=== PATIENT | male | born 1935 | race Caucasian/White ===

== ENCOUNTER 2017-12-16 15:49 | Observation (INO) | payer MEDICAID, MEDICARE ==
[2017-12-16] MEDS ORDERED: methylPREDNISolone Sodium Succinate 125 MG/2 ML SDV IVPUSH ONE (16:10)
[2017-12-16] MEDS ORDERED: cefTRIAXone 1 GM Vial IVPUSH ONE (16:19)
[2017-12-16] MEDS ORDERED: Sodium Chloride 0.9% 500 ML IV SCH (16:30)
[2017-12-16] MEDS: Sodium Chloride 0.9% 1,000 ML IV SCH (16:45)
[2017-12-16 17:05] LABS: CHLORIDE,CL 110 mmol/L (98-107); SODIUM,NA 148 mmol/L (136-145)
--- NOTE | 2017-12-16 17:15 | EDM.PDOC ---
ED HPI GENERAL MEDICAL PROBLEM - General Chief Complaint: Respiratory Problem Stated Complaint: fever, shortness of breath Time Seen by Provider: 12/16/17 16:08 Source of Information: Reports: EMS Notes Reviewed History Limitations: Reports: Altered Mental Status - History of Present Illness INITIAL COMMENTS - FREE TEXT/NARRATIVE: Patient brought over from the care center with complaints of fever and coarse lung sounds. Nurse states this just started before bringing him in. They state that he was transferred to them on 12/11/17 from the [facility]. He does have a history of dementia. Unable to get a HPI from him due to confusion. Onset: Sudden Onset Date: 12/16/17 Duration: Getting Worse Location: Reports: Chest - Related Data Allergies Allergy/AdvReac Type Severity Reaction Status Date / Time No Known Allergies Allergy Verified 12/16/17 16:10 Home Meds: Home Meds Escitalopram Oxalate 20 mg PO DAILY 12/16/17 [History] Furosemide 40 mg PO BID 12/16/17 [History] Memantine HCl 10 mg PO BID 12/16/17 [History] Metoprolol Tartrate 12.5 mg PO BID 12/16/17 [History] Polyethylene Glycol 3350 [MiraLAX] 17 gm PO BID 12/16/17 [History] Rivastigmine Tartrate [Rivastigmine] 3 mg PO BID 12/16/17 [History] Sennosides/Docusate Sodium [Senna Plus Tablet] 2 tab PO TID 12/16/17 [History] Triamcinolone Acetonide [Triamcinolone Acetonide 0.1% Crm] 1 dose TOP BID PRN [History] risperiDONE [Risperdal] 1 tab PO BEDTIME 12/16/17 [History] risperiDONE [RisperiDAL] 1 mg PO DAILY 12/16/17 [History] ED ROS GENERAL - Review of Systems Review Of Systems: Unable To Obtain ED EXAM, GENERAL - Physical Exam Exam: See Below Exam Limited By: Altered Mental Status General Appearance: Mild Distress Eye Exam: Bilateral Eye: EOMI, PERRL Ears: Normal TMs Ear Exam: Bilateral Ear: TM normal Head: Atraumatic, Normocephalic Neck: Normal Inspection, Supple, Non-Tender, Full Range of Motion Respiratory/Chest: Respiratory Distress, Decreased Breath Sounds, Crackles Cardiovascular: Normal Peripheral Pulses, Regular Rate, Rhythm Peripheral Pulses: 2+: Posterior Tibial (L), Posterior Tibial (R), Dorsalis Pedis (L), Dorsalis Pedis (R) GI/Abdominal: Normal Bowel Sounds, Soft, Non-Tender, No Organomegaly, No Distention, No Abnormal Bruit, No Mass Neurological: Confused, Disoriented, Slow to Respond Psychiatric: Flat Affect EKG INTERPRETATION EKG Date: 12/16/17 Time: 16:30 Rhythm: NSR (with occasional svt) Rate (Beats/Min): 78 Simpson: Normal P-Wave: Present QRS: Normal ST-T: Normal QT: Normal EKG Interpretation Comments: sinus rhythm with occasional supraventricular premature complexes nonspecific st and t wave abnormality borderline ecg Course - Vital Signs Last Recorded V/S: Last Vital Signs Temp 36.6 C 12/16/17 22:00 Pulse 69 12/16/17 22:00 Resp 19 12/16/17 22:00 BP 124/48 L 12/16/17 22:00 Pulse Ox 95 12/16/17 22:00 - Orders/Labs/Meds Orders: Active Orders 24 hr Category Date Time Status Patient Status [ADT] Routine ADT 12/16/17 18:01 Active Chest 1V Frontal [CR] Stat Exams 12/16/17 16:14 Taken CULTURE BLOOD [BC] Stat Lab 12/16/17 16:23 Received CULTURE BLOOD [BC] Stat Lab 12/16/17 16:31 Received CULTURE URINE [RM] Stat Lab 12/16/17 17:40 Received Sodium Chloride 0.9% [Normal Saline] 1,000 ml Med 12/16/17 17:00 Active IV ASDIRECTED Blood Culture x2 Reflex Set [OM.PC] Stat Oth 12/16/17 16:10 Ordered Medication Orders Acetaminophen (Tylenol) 650 mg RECTAL Q4H PRN PRN Reason: Mild pain/fever Albuterol/Ipratropium (Duoneb 3.0-0.5 Mg/3 Ml) 3 ml NEB Q4H PRN PRN Reason: dyspnea/wheezing Last Admin: 12/16/17 19:44 Dose: 3 ml Citalopram Hydrobromide (Celexa) 40 mg PO DAILY [facility] Diphtheria/Tetanus/Acell Pertussis (Adacel) 0.5 ml IM .ONCE ONE Stop: 12/17/17 12:01 Enoxaparin Sodium (Lovenox) 40 mg SUBCUT DAILY [facility] Furosemide (Lasix) 40 mg IV DAILY [facility] Last Admin: 12/16/17 20:02 Dose: 40 mg Sodium Chloride (Normal Saline) 1,000 mls @ 100 mls/hr IV ASDIRECTED [facility] Last Admin: 12/16/17 16:45 Dose: 100 mls/hr Memantine (Namenda) 10 mg PO BID [facility] Last Admin: 12/16/17 20:47 Dose: Metoprolol Tartrate (Lopressor) 12.5 mg PO BID [facility] Last Admin: 12/16/17 20:47 Dose: Non-Formulary Medication (Rivastigmine Tartrate [Rivastigmine]) 3 mg PO BID [facility] Last Admin: 12/16/17 20:07 Dose: Polyethylene Glycol (Miralax) 17 gm PO BID [facility] Last Admin: 12/16/17 20:06 Dose: Risperidone (Risperidal) 1 mg PO DAILY [facility] Risperidone (Risperidal) 0.5 mg PO BEDTIME [facility] Last Admin: 12/16/17 20:47 Dose: Senna/Docusate Sodium (Senna Plus) 2 tab PO TID [facility] Last Admin: 12/16/17 20:05 Dose: Triamcinolone Acetonide (Triamcinolone Acetonide 0.1% Crm) 0 gm TOP BID PRN PRN Reason: Itching Labs: Laboratory Tests 12/16/17 12/16/1718 Range/Units 16:23 16:23 16:23 WBC 8.8 (4.0-10.0) x10^3/uL RBC 4.06 L (4.5-6.0) x10^6/uL Hgb 10.8 L (14.0-18.0) g/dL Hct 35.7 L (40.0-52.0) % MCV 87.9 (78.0-93.0) fL MCH 26.6 (26.0-32.0) pg MCHC 30.3 L (32.0-36.0) g/dL RDW Coeff of Roberto 15.2 H (10.0-15.0) % Plt Count 246 (130-400) x10^3/uL Neut % (Auto) 79.2 (50.0-80.0) % Lymph % (Auto) 7.7 L (25.0-50.0) % [place] % (Auto) 12.8 H (2.0-11.0) % Eos % (Auto) 0.1 (0.0-4.0) % Baso % (Auto) 0.2 (0.2-1.2) % POC ABG pH (7.35-7.45) POC ABG pCO2 (35-45) mmHG POC ABG pO2 (80-105) mmHG POC ABG HCO3 (22-26) mmol/L POC ABG Total CO2 (23-27) mmol/L POC ABG O2 Sat (95-98) % POC ABG Base Excess (-2-3) mmol/L POC FiO2 Sodium 148 H (136-145) mmol/L Potassium 3.9 (3.5-5.1) mmol/L Chloride 110 H (98-107) mmol/L Carbon Dioxide 28 (21-32) mmol/L BUN 35 H (7-18) mg/dL Creatinine 1.7 H (0.70-1.30) mg/dL Est Cr Clr Drug Dosing TNP Estimated GFR (MDRD) 39 Glucose 127 H (74-106) mg/dL Lactic Acid 1.8 (0.4-2.0) mmol/L Calcium 8.8 (8.5-10.1) mg/dL Corrected Calcium 9.60 (8.5-10.1) mg/dL Total Bilirubin 0.4 (0.2-1.0) mg/dL AST 13 L (15-37) U/L ALT 18 (16-63) U/L Alkaline Phosphatase 75 (46-116) U/L Troponin I < 0.017 (<=0.056) ng/mL C-Reactive Protein (<=0.9) mg/dL NT-Pro-B Natriuret Pep 1250 H (<=450) pg/mL Total Protein 7.8 (6.4-8.2) g/dL Albumin 3.0 L (3.4-5.0) g/dL Globulin 4.8 Albumin/Globulin Ratio 0.63 Urine Color (YELLOW) Urine Appearance (CLEAR) Urine pH (5.0-8.0) Ur Specific [place] Urine Protein (NEGATIVE) mg/dL Urine Glucose (UA) (NEGATIVE) mg/dL Urine Ketones (NEGATIVE) mg/dL Urine Occult Blood (NEGATIVE) Urine Nitrite (NEGATIVE) Urine Bilirubin (NEGATIVE) Urine Urobilinogen (0.2) EU/dL Ur Leukocyte Esterase (NEGATIVE) Urine RBC (NOT SEEN) /HPF Urine WBC (NOT SEEN) /HPF Ur Squamous Epith Cells (NEGATIVE) /HPF Urine Bacteria (NEGATIVE) /HPF Urine Mucus (NEGATIVE) /LPF 12/16/17 12/16/17 12/16/17 Range/Units 16:23 16:47 17:40 WBC (4.0-10.0) x10^3/uL RBC (4.5-6.0) x10^6/uL Hgb (14.0-18.0) g/dL Hct (40.0-52.0) % MCV (78.0-93.0) fL MCH (26.0-32.0) pg MCHC (32.0-36.0) g/dL RDW Coeff of Roberto (10.0-15.0) % Plt Count (130-400) x10^3/uL Neut % (Auto) (50.0-80.0) % Lymph % (Auto) (25.0-50.0) % [place] % (Auto) (2.0-11.0) % Eos % (Auto) (0.0-4.0) % Baso % (Auto) (0.2-1.2) % POC ABG pH 7.468 H (7.35-7.45) POC ABG pCO2 34 L (35-45) mmHG POC ABG pO2 61 L (80-105) mmHG POC ABG HCO3 25 (22-26) mmol/L POC ABG Total CO2 26 (23-27) mmol/L POC ABG O2 Sat 93 L (95-98) % POC ABG Base Excess 1 (-2-3) mmol/L POC FiO2 0.28 Sodium (136-145) mmol/L Potassium (3.5-5.1) mmol/L Chloride (98-107) mmol/L Carbon Dioxide (21-32) mmol/L BUN (7-18) mg/dL Creatinine (0.70-1.30) mg/dL Est Cr Clr Drug Dosing Estimated GFR (MDRD) Glucose (74-106) mg/dL Lactic Acid (0.4-2.0) mmol/L Calcium (8.5-10.1) mg/dL Corrected Calcium (8.5-10.1) mg/dL Total Bilirubin (0.2-1.0) mg/dL AST (15-37) U/L ALT (16-63) U/L Alkaline Phosphatase (46-116) U/L Troponin I (<=0.056) ng/mL C-Reactive Protein 31.2 H (<=0.9) mg/dL NT-Pro-B Natriuret Pep (<=450) pg/mL Total Protein (6.4-8.2) g/dL Albumin (3.4-5.0) g/dL Globulin Albumin/Globulin Ratio Urine Color Dark yellow H (YELLOW) Urine Appearance Clear (CLEAR) Urine pH 6.0 (5.0-8.0) Ur Specific [place] 1.020 Urine Protein 30 H (NEGATIVE) mg/dL Urine Glucose (UA) Negative (NEGATIVE) mg/dL Urine Ketones Negative (NEGATIVE) mg/dL Urine Occult Blood Negative (NEGATIVE) Urine Nitrite Negative (NEGATIVE) Urine Bilirubin Negative (NEGATIVE) Urine Urobilinogen 0.2 (0.2) EU/dL Ur Leukocyte Esterase Negative (NEGATIVE) Urine RBC Not seen (NOT SEEN) /HPF Urine WBC Not seen (NOT SEEN) /HPF Ur Squamous Epith Cells Not seen (NEGATIVE) /HPF Urine Bacteria Not seen (NEGATIVE) /HPF Urine Mucus Not seen (NEGATIVE) /LPF Meds: Medications Generic Name Dose Route Start Last Admin Trade Name Freq PRN Reason Stop Dose Admin Acetaminophen 650 mg 12/16/17 19:00 Tylenol RECTAL Q4H PRN Mild pain/fever Albuterol/Ipratropium 3 ml 12/16/17 19:00 12/16/17 19:44 Duoneb 3.0-0.5 Mg/3 Ml NEB 3 ml Q4H PRN Administration dyspnea/wheezing Citalopram Hydrobromide 40 mg 12/17/17 08:00 Celexa PO DAILY [facility] Diphtheria/Tetanus/Acell Pertussis 0.5 ml 12/17/17 12:00 Adacel IM 12/17/17 12:01 .ONCE ONE Enoxaparin Sodium 40 mg 12/17/17 08:00 Lovenox SUBCUT DAILY [facility] Furosemide 40 mg 12/16/17 19:45 12/16/17 20:02 Lasix IV 40 mg DAILY [facility] Administration Sodium Chloride 1,000 mls @ 100 mls/hr 12/16/17 17:00 12/16/17 16:45 Normal Saline IV 100 mls/hr ASDIRECTED [facility] Administration Memantine 10 mg 12/16/17 20:00 12/16/17 20:47 Namenda PO Not Given BID [facility] Metoprolol Tartrate 12.5 mg 12/16/17 20:00 12/16/17 20:47 Lopressor PO Not Given BID [facility] Non-Formulary Medication 3 mg 12/16/17 20:00 12/16/17 20:07 Rivastigmine Tartrate [Rivastigmine] PO Not Given BID [facility] Polyethylene Glycol 17 gm 12/16/17 20:00 12/16/17 20:06 Miralax PO Not Given BID [facility] Risperidone 1 mg 12/17/17 08:00 Risperidal PO DAILY [facility] Risperidone 0.5 mg 12/16/17 20:00 12/16/17 20:47 Risperidal PO Not Given BEDTIME [facility] Senna/Docusate Sodium 2 tab 12/16/17 20:00 12/16/17 20:05 Senna Plus PO Not Given TID [facility] Triamcinolone Acetonide 0 gm 12/16/17 19:05 Triamcinolone Acetonide 0.1% Crm TOP BID PRN Itching Discontinued Medications Generic Name Dose Route Start Last Admin Trade Name Freq PRN Reason Stop Dose Admin Azithromycin 500 mg 12/16/17 19:09 12/16/17 20:05 Zithromax PO 12/16/17 19:10 Not Given ONETIME ONE Ceftriaxone Sodium 1 gm 12/16/17 16:19 12/16/17 16:45 Rocephin IVPUSH 12/16/17 16:20 1 gm ONETIME ONE Administration Diphtheria/Tetanus/Acell Pertussis 0.5 ml 12/16/17 19:20 Adacel IM 12/16/17 19:21 .ONCE ONE Furosemide 40 mg 12/16/17 19:15 12/16/17 20:05 Lasix PO Not Given BIDDIURETIC [facility] Furosemide 40 mg 12/17/17 08:00 Lasix IV DAILY [facility] Vancomycin HCl 1,250 mg/ 250 mls @ 200 mls/hr 12/16/17 16:19 02/17/18 16:57 Sodium Chloride IV 12/16/17 17:33 200 mls/hr ONETIME ONE Administration Azithromycin 500 mg/ Sodium 250 mls @ 250 mls/hr 12/16/17 19:43 12/16/17 20: 48 Chloride IV 12/16/17 20:42 250 mls/hr ONETIME ONE Administration Methylprednisolone Sodium Succinate 125 mg 12/16/17 16:10 12/16/17 16:52 Solu-Medrol IVPUSH 12/16/17 16:11 125 mg ONETIME ONE Administration - Re-Assessments/Exams Free Text/Narrative Re-Assessment/Exam: 12/16/17 22:29 Patient admitted to upstairs observation PLEASE USE ER NOTE FOR ADMISSION H & P Departure - Departure Time of Disposition: 18:15 Disposition: Refer to Observation Condition: Good Clinical Impression: COPD (chronic obstructive pulmonary disease), CAP (community acquired pneumonia ) - Discharge Information - My Orders Last 24 Hours: My Active Orders 12/16/17 16:10 Blood Culture x2 Reflex Set [OM.PC] Stat 12/16/17 16:14 Chest 1V Frontal [CR] Stat 12/16/17 16:23 CULTURE BLOOD [BC] Stat 12/16/17 16:31 CULTURE BLOOD [BC] Stat 12/16/17 17:00 Sodium Chloride 0.9% [Normal Saline] 1,000 ml IV ASDIRECTED 12/16/17 17:40 CULTURE URINE [RM] Stat 12/16/17 18:01 Patient Status [ADT] Routine - Assessment/Plan Last 24 Hours: My Active Orders 12/16/17 16:10 Blood Culture x2 Reflex Set [OM.PC] Stat 12/16/17 16:14 Chest 1V Frontal [CR] Stat 12/16/17 16:23 CULTURE BLOOD [BC] Stat 12/16/17 16:31 CULTURE BLOOD [BC] Stat 12/16/17 17:00 Sodium Chloride 0.9% [Normal Saline] 1,000 ml IV ASDIRECTED 12/16/17 17:40 CULTURE URINE [RM] Stat 12/16/17 18:01 Patient Status [ADT] Routine
[2017-12-16] MEDS ORDERED: Acetaminophen 650 MG Supp RECTAL PRN (19:00)
[2017-12-16] MEDS ORDERED: Triamcinolone Acetonide 0.1% Crm 15 GM Tube TOP PRN (19:05)
[2017-12-16] MEDS ORDERED: Azithromycin 250 MG Tab PO ONE (19:09)
[2017-12-16] MEDS ORDERED: Furosemide 40 MG Tab PO SCH (19:15)
[2017-12-16] MEDS ORDERED: Diphtheria,Pertussis(Acell),Tetanus Vaccine 0.5 ML Syringe IM ONE (19:20)
[2017-12-16] MEDS ORDERED: Azithromycin 500 MG in Sodium Chloride 0.9% 250 ML IV ONE (19:43)
[2017-12-16] MEDS: Albuterol/Ipratropium 3.0-0.5 MG/3 ML Neb Soln NEB PRN (19:44)
[2017-12-16] MEDS: Furosemide 40 MG/4 ML VIAL IV SCH (20:02)
[2017-12-16] MEDS: Polyethylene Glycol 3350 Powder 17 GM Packet PO SCH (20:06)
[2017-12-16] MEDS: RIVASTIGMINE TARTRATE 3 MG PO SCH (20:07)
[2017-12-16] MEDS: Memantine 10 MG Tab PO SCH (20:47)
[2017-12-16] MEDS: risperiDONE 0.25 MG Tab PO SCH (20:47)
[2017-12-16] MEDS: Metoprolol Tartrate 25 MG Tab PO SCH (20:47)
[2017-12-17] MEDS ORDERED: diphenhydrAMINE 50 MG/ML SDV IVPUSH ONE (01:19)
[2017-12-17] MEDS: Sodium Chloride 0.9% 1,000 ML IV SCH ×2 (04:59→14:32)
[2017-12-17] MEDS: Albuterol/Ipratropium 3.0-0.5 MG/3 ML Neb Soln NEB PRN (07:33)
[2017-12-17] MEDS ORDERED: Furosemide 40 MG/4 ML VIAL IV SCH (08:00)
[2017-12-17] MEDS: Enoxaparin 40 MG/0.4 ML Syringe SUBCUT SCH (08:05)
[2017-12-17] MEDS: Furosemide 40 MG/4 ML VIAL IV SCH (08:06)
[2017-12-17] MEDS: risperiDONE 1 MG Tab PO SCH (10:42)
[2017-12-17] MEDS: Memantine 10 MG Tab PO SCH ×2 (10:43→21:12)
[2017-12-17] MEDS: Polyethylene Glycol 3350 Powder 17 GM Packet PO SCH ×2 (10:43→21:04)
[2017-12-17] MEDS: Metoprolol Tartrate 25 MG Tab PO SCH ×2 (10:43→21:12)
[2017-12-17] MEDS: Citalopram 20 MG Tab PO SCH (10:43)
[2017-12-17] MEDS: RIVASTIGMINE TARTRATE 3 MG PO SCH ×2 (10:47→21:13)
[2017-12-17] MEDS ORDERED: Diphtheria,Pertussis(Acell),Tetanus Vaccine 0.5 ML Syringe IM ONE (12:00)
--- NOTE | 2017-12-17 14:13 | PCM.PN ---
- General Info Date of Service: 12/17/17 Admission Dx/Problem (Free Text): COPD Pneumonia Hypernatremia Dementia with behaviors Acute kidney injury Chronic AFib Essential Hypertension Subjective Update: Patient offers no specific complaints today. He does have severe dementia, so is somewhat of a poor historian. Functional Status: Reports: Pain Controlled, Tolerating Diet Pain Score: 0 - Review of Systems General: Reports: Weakness. Denies: Fever, Chills Pulmonary: Reports: Cough. Denies: Shortness of Breath, Sputum Cardiovascular: Denies: Chest Pain, Palpitations Gastrointestinal: Denies: Abdominal Pain, Nausea, Vomiting Skin: Reports: No Symptoms Neurological: Reports: Confusion. Denies: Headache - Patient Data Vitals - Most Recent: Last Vital Signs Temp 37.0 C 12/17/17 14:00 Pulse 62 12/17/17 14:00 Resp 20 12/17/17 14:00 BP 133/56 L 12/17/17 14:00 Pulse Ox 99 12/17/17 14:00 Weight - Most Recent: 94.801 kg I&O - Last 24 Hours: Intake & Output 12/16/17 12/17/17 12/17/17 22:59 06:59 14:59 Intake Total 1150 810 Output Total 1000 Balance 1150 -190 Lab Results Last 24 Hours: Laboratory Results - last 24 hr 12/16/17 12/17/17 12/17/17 Range/Units 20:57 06:35 07:28 WBC 6.0 (4.0-10.0) x10^3/uL RBC 3.69 L (4.5-6.0) x10^6/uL Hgb 10.0 L (14.0-18.0) g/dL Hct 33.0 L (40.0-52.0) % MCV 89.4 (78.0-93.0) fL MCH 27.1 (26.0-32.0) pg MCHC 30.3 L (32.0-36.0) g/dL RDW Coeff of Roberto 15.0 (10.0-15.0) % Plt Count 217 (130-400) x10^3/uL Sodium (136-145) mmol/L Potassium (3.5-5.1) mmol/L Chloride (98-107) mmol/L Carbon Dioxide (21-32) mmol/L BUN (7-18) mg/dL Creatinine (0.70-1.30) mg/dL Est Cr Clr Drug Dosing mL/min Estimated GFR (MDRD) Glucose (74-106) mg/dL POC Glucose 181 H 180 H (74-106) mg/dL Lactic Acid (0.4-2.0) mmol/L Calcium (8.5-10.1) mg/dL C-Reactive Protein (<=0.9) mg/dL 12/17/17 12/17/17 Range/Units 07:28 07:28 WBC (4.0-10.0) x10^3/uL RBC (4.5-6.0) x10^6/uL Hgb (14.0-18.0) g/dL Hct (40.0-52.0) % MCV (78.0-93.0) fL MCH (26.0-32.0) pg MCHC (32.0-36.0) g/dL RDW Coeff of Roberto (10.0-15.0) % Plt Count (130-400) x10^3/uL Sodium 149 H (136-145) mmol/L Potassium 3.8 (3.5-5.1) mmol/L Chloride 113 H (98-107) mmol/L Carbon Dioxide 26 (21-32) mmol/L BUN 39 H (7-18) mg/dL Creatinine 1.6 H (0.70-1.30) mg/dL Est Cr Clr Drug Dosing 46.41 mL/min Estimated GFR (MDRD) 42 Glucose 186 H (74-106) mg/dL POC Glucose (74-106) mg/dL Lactic Acid 2.6 H* (0.4-2.0) mmol/L Calcium 8.0 L (8.5-10.1) mg/dL C-Reactive Protein 26.7 H (<=0.9) mg/dL Ricardo Results Last 24 Hours: Microbiology 12/17/17 11:34 Influenza Type A Antigen Screen - Final Nasopharyngeal Swab NEGATIVE INFLUENZA A VIRUS AG Influenza Type B Antigen Screen - Final NEGATIVE INFLUENZA B VIRUS AG Med Orders - Current: Current Medications Acetaminophen (Tylenol) 650 mg RECTAL Q4H PRN PRN Reason: Mild pain/fever Albuterol/Ipratropium (Duoneb 3.0-0.5 Mg/3 Ml) 3 ml NEB Q4H PRN PRN Reason: dyspnea/wheezing Last Admin: 12/17/17 07:33 Dose: 3 ml Citalopram Hydrobromide (Celexa) 40 mg PO DAILY [facility] Last Admin: 12/17/17 10:43 Dose: 40 mg Enoxaparin Sodium (Lovenox) 40 mg SUBCUT DAILY [facility] Last Admin: 12/17/17 08:05 Dose: 40 mg Furosemide (Lasix) 40 mg IV DAILY [facility] Last Admin: 12/17/17 08:06 Dose: 40 mg Sodium Chloride (Normal Saline) 1,000 mls @ 100 mls/hr IV ASDIRECTED [facility] Last Admin: 12/17/17 04:59 Dose: 100 mls/hr Memantine (Namenda) 10 mg PO BID [facility] Last Admin: 12/17/17 10:43 Dose: 10 mg Metoprolol Tartrate (Lopressor) 12.5 mg PO BID [facility] Last Admin: 12/17/17 10:43 Dose: 12.5 mg Non-Formulary Medication (Rivastigmine Tartrate [Rivastigmine]) 3 mg PO BID [facility] Last Admin: 12/17/17 10:47 Dose: Not Given Polyethylene Glycol (Miralax) 17 gm PO BID [facility] Last Admin: 12/17/17 10:43 Dose: 17 gm Risperidone (Risperidal) 1 mg PO DAILY [facility] Last Admin: 12/17/17 10:42 Dose: 1 mg Risperidone (Risperidal) 0.5 mg PO BEDTIME [facility] Last Admin: 12/16/17 20:47 Dose: Not Given Senna/Docusate Sodium (Senna Plus) 2 tab PO TID [facility] Last Admin: 12/17/17 12:29 Dose: 2 tab Triamcinolone Acetonide (Triamcinolone Acetonide 0.1% Crm) 0 gm TOP BID PRN PRN Reason: Itching Discontinued Medications Azithromycin (Zithromax) 500 mg PO ONETIME ONE Stop: 12/16/17 19:10 Last Admin: 12/16/17 20:05 Dose: Not Given Ceftriaxone Sodium (Rocephin) 1 gm IVPUSH ONETIME ONE Stop: 12/16/17 16:20 Last Admin: 12/16/17 16:45 Dose: 1 gm Diphenhydramine HCl (Benadryl) 25 mg IVPUSH ONETIME ONE Stop: 12/17/17 01:20 Last Admin: 12/17/17 01:53 Dose: 25 mg Diphtheria/Tetanus/Acell Pertussis (Adacel) 0.5 ml IM .ONCE ONE Stop: 12/16/17 19:21 Diphtheria/Tetanus/Acell Pertussis (Adacel) 0.5 ml IM .ONCE ONE Stop: 12/17/17 12:01 Furosemide (Lasix) 40 mg PO BIDDIURETIC [facility] Last Admin: 12/16/17 20:05 Dose: Not Given Furosemide (Lasix) 40 mg IV DAILY [facility] Vancomycin HCl 1,250 mg/ (Sodium Chloride) 250 mls @ 200 mls/hr IV ONETIME ONE Stop: 12/16/17 17:33 Last Admin: 12/16/17 16:57 Dose: 200 mls/hr Azithromycin 500 mg/ Sodium (Chloride) 250 mls @ 250 mls/hr IV ONETIME ONE Stop: 12/16/17 20:42 Last Admin: 12/16/17 20:48 Dose: 250 mls/hr Methylprednisolone Sodium Succinate (Solu-Medrol) 125 mg IVPUSH ONETIME ONE Stop: 12/16/17 16:11 Last Admin: 12/16/17 16:52 Dose: 125 mg - Exam Quality Assessment: Supplemental Oxygen, Urine Catheter, DVT Prophylaxis General: Alert, Cooperative, No Acute Distress Lungs: Normal Respiratory Effort, Rhonchi Cardiovascular: Irregular Rhythm GI/Abdominal Exam: Normal Bowel Sounds, Soft, Non-Tender Peripheral Pulses: 2+: Radial (L), Radial (R) Skin: Warm, Dry, Intact Neurological: No New Focal Deficit, Other (Confused) - Problem List & Annotations (1) COPD (chronic obstructive pulmonary disease) SNOMED Code(s): 57506723 Code(s): J44.9 - CHRONIC OBSTRUCTIVE PULMONARY DISEASE, UNSPECIFIED Status : Acute Priority: Medium Current Visit: Yes Qualifiers: COPD type: COPD with acute exacerbation Qualified Code(s): J44.1 - Chronic obstructive pulmonary disease with (acute) exacerbation (2) Acute kidney injury (nontraumatic) SNOMED Code(s): 55539597 Code(s): N17.9 - ACUTE KIDNEY FAILURE, UNSPECIFIED Status: Acute Priority : High Current Visit: Yes Onset Date: ~12/16/17 (3) Hypernatremia SNOMED Code(s): 74712988 Code(s): E87.0 - HYPEROSMOLALITY AND HYPERNATREMIA Status: Acute Priority : Medium Current Visit: Yes (4) Dementia with behavioral problem SNOMED Code(s): 0609606015863 Code(s): F03.91 - UNSPECIFIED DEMENTIA WITH BEHAVIORAL DISTURBANCE Status: Chronic Priority: Medium Current Visit: No Qualifiers: Dementia type: Alzheimer's disease Alzheimer's disease onset: unspecified onset Qualified Code(s): G30.9 - Alzheimer's disease, unspecified; F02.81 - Dementia in other diseases classified elsewhere with behavioral disturbance; F02.81 - Dementia in other diseases classified elsewhere with behavioral disturbance; F02.81 - Dementia in other diseases classified elsewhere with behavioral disturbance (5) Chronic atrial fibrillation SNOMED Code(s): 242353697 Code(s): I48.2 - CHRONIC ATRIAL FIBRILLATION Status: Chronic Priority: Medium Current Visit: No (6) Essential hypertension SNOMED Code(s): 03671551 Code(s): I10 - ESSENTIAL (PRIMARY) HYPERTENSION Status: Chronic Priority : Low Current Visit: No - Problem List Review Problem List Initiated/Reviewed/Updated: Yes - My Orders Last 24 Hours: My Active Orders 12/17/17 07:45 Insert Montoya Catheter [Insert Urinary Catheter] [OM.PC] Stat 12/17/17 11:13 Chest 1V Frontal [CR] Routine 12/17/17 11:53 Urinary Catheter Assessment [RC] 12/17/17 14:07 Encourage Fluids [OM.PC] Routine - Plan Plan:: 82-year-old male patient with a past medical history of COPD, dementia with behavioral disturbance, atrial fibrillation, essential hypertension was admitted to the observation unit yesterday for a diagnosis of COPD exacerbation , community-acquired pneumonia. Yesterday's x-ray and a repeat x-ray today did not show any pneumonia, however did show some cardiomegaly with pulmonary congestion. We will not restart the patient's antibiotics as there is no etiology. I will however check an influenza as the patient does have a cough. We will also recheck a chest x-ray today. The patient needs to have free water available as much as possible for the hypernatremia. We will insert a Montoya catheter today to closely monitor COLEEN due to the patient's acute kidney injury. We'll continue all other medications at home. I would encourage the nursing staff to try and wean the patient off of BiPAP if possible. We will continue the patient's [facility] diet. The patient is a code 3. It is unclear whether or not the patient would be transferred to a higher level of care should the need arise, however we will transfer him if need be. If the patient's respiratory and laboratory status continues to improve, the patient may be able to transfer back to the [facility] tomorrow. We will recheck blood work in the a.m.
[2017-12-17] MEDS: Albuterol/Ipratropium 3.0-0.5 MG/3 ML Neb Soln NEB SCH ×3 (14:36→22:57)
[2017-12-17] MEDS ORDERED: Haloperidol Lactate 5 MG/ML SDV IVPUSH PRN (17:30)
[2017-12-17] MEDS: risperiDONE 0.25 MG Tab PO SCH (21:12)
[2017-12-18] MEDS: Albuterol/Ipratropium 3.0-0.5 MG/3 ML Neb Soln NEB SCH ×2 (02:22→07:38)
[2017-12-18] MEDS: Memantine 10 MG Tab PO SCH (08:18)
[2017-12-18] MEDS: risperiDONE 1 MG Tab PO SCH (08:18)
[2017-12-18] MEDS: Citalopram 20 MG Tab PO SCH (08:18)
[2017-12-18] MEDS: Enoxaparin 40 MG/0.4 ML Syringe SUBCUT SCH (08:18)
[2017-12-18] MEDS: Furosemide 40 MG/4 ML VIAL IV SCH ×2 (08:18→09:04)
[2017-12-18] MEDS: Polyethylene Glycol 3350 Powder 17 GM Packet PO SCH (08:18)
[2017-12-18] MEDS: Metoprolol Tartrate 25 MG Tab PO SCH (08:18)
[2017-12-18] MEDS: RIVASTIGMINE TARTRATE 3 MG PO SCH (08:19)
[2017-12-18] MEDS ORDERED: Furosemide 40 MG/4 ML VIAL IM SCH (08:30)
--- NOTE | 2017-12-18 08:30 | PCM.DCSUM1 ---
Discharge Summary - Discharge Data Discharge Date: 12/18/17 Discharge Disposition: DC/Tfer to [facility] Condition: Fair - Discharge Diagnosis/Problem(s) (1) COPD (chronic obstructive pulmonary disease) SNOMED Code(s): 22425857 ICD Code: J44.9 - CHRONIC OBSTRUCTIVE PULMONARY DISEASE, UNSPECIFIED Status : Acute Priority: Medium Current Visit: Yes Qualifiers: COPD type: COPD with acute exacerbation Qualified Code(s): J44.1 - Chronic obstructive pulmonary disease with (acute) exacerbation (2) Acute kidney injury (nontraumatic) SNOMED Code(s): 51338824 ICD Code: N17.9 - ACUTE KIDNEY FAILURE, UNSPECIFIED Status: Acute Priority: High Current Visit: Yes Onset Date: ~12/16/17 (3) Hypernatremia SNOMED Code(s): 58627754 ICD Code: E87.0 - HYPEROSMOLALITY AND HYPERNATREMIA Status: Resolved Priority: Medium Current Visit: Yes (4) Dementia with behavioral problem SNOMED Code(s): 2640626070543 ICD Code: F03.91 - UNSPECIFIED DEMENTIA WITH BEHAVIORAL DISTURBANCE Status : Chronic Priority: Medium Current Visit: No Qualifiers: Dementia type: Alzheimer's disease Alzheimer's disease onset: unspecified onset Qualified Code(s): G30.9 - Alzheimer's disease, unspecified; F02.81 - Dementia in other diseases classified elsewhere with behavioral disturbance; F02.81 - Dementia in other diseases classified elsewhere with behavioral disturbance; F02.81 - Dementia in other diseases classified elsewhere with behavioral disturbance (5) Chronic atrial fibrillation SNOMED Code(s): 941020026 ICD Code: I48.2 - CHRONIC ATRIAL FIBRILLATION Status: Chronic Priority: Medium Current Visit: No (6) Essential hypertension SNOMED Code(s): 91898145 ICD Code: I10 - ESSENTIAL (PRIMARY) HYPERTENSION Status: Chronic Priority : Low Current Visit: No - Patient Summary/Data Operative Procedure(s) Performed: None Labs Pending at D/C: None Recommended Follow-up Testing/Procedures: Recheck blood work in one week Planned Operative Procedure(s) after DC: None Hospital Course: Patient remained stable. Antibiotics were d/c as xray did not show any pneumonia. Patient was able to be weaned off BiPAP to NC. Will order O2 to be used at the snf as needed. Patient did have some behavioral problems with nursing staff. Tolerated santos, but will discontinue prior to discharge. Patient did not like having a nasal cannula. He pulls it off and O2 sats drop to 86-87. Patient tolerated mechanical soft diet without problems. He did strike out at staff on occasion. No SOB or chest pain. Patient is incontinent of BM. No abdominal issues. - Patient Instructions Diet: Mechanical Soft Activity: Rest and Relax Today Driving: Do Not Drive Showering/Bathing: May Shower Notify Provider of: Fever, Increased Pain, Nausea and/or Vomiting - Discharge Plan Home Medications: Home Meds Escitalopram Oxalate 20 mg PO DAILY 12/16/17 [History] Furosemide 40 mg PO BID 12/16/17 [History] Memantine HCl 10 mg PO BID 12/16/17 [History] Metoprolol Tartrate 12.5 mg PO BID 12/16/17 [History] Polyethylene Glycol 3350 [MiraLAX] 17 gm PO BID 12/16/17 [History] Rivastigmine Tartrate [Rivastigmine] 3 mg PO BID 12/16/17 [History] Sennosides/Docusate Sodium [Senna Plus Tablet] 2 tab PO TID 12/16/17 [History] Triamcinolone Acetonide [Triamcinolone Acetonide 0.1% Crm] 1 dose TOP BID PRN [History] risperiDONE [Risperdal] 1 tab PO BEDTIME 12/16/17 [History] risperiDONE [RisperiDAL] 1 mg PO DAILY 12/16/17 [History] Patient Handouts: Chronic Obstructive Pulmonary Disease Referrals: Marina Bone MD [Primary Care Provider] - - Discharge Summary/Plan Comment DC Time >30 min.: Yes Discharge Summary/Plan Comment: Patient will be discharge back to the snf today. Will order O2 PRN to keep sats >=88%-92%. No changes with snf medications, will keep the same. No indication for abx treatment on discharge, cultures all negative. WBC is elevated, but this could be reactionary. Kidney function improved with hydration. Sodium has normalized. Recommend a follow up with PCP in one week. - General Info Date of Service: 12/18/17 Admission Dx/Problem (Free Text: COPD Pneumonia Hypernatremia Dementia with behaviors Acute kidney injury Chronic AFib Essential Hypertension Subjective Update: FLACO due to advanced dementia; patient able to answer some yes/no questions which is baseline for this patient Functional Status: Reports: Pain Controlled, Tolerating Diet Numeric/FACES Score: 0 - Review of Systems General: Reports: Weakness. Denies: Fever Pulmonary: Denies: Shortness of Breath, Sputum Cardiovascular: Denies: Chest Pain, Palpitations Gastrointestinal: Denies: Abdominal Pain, Nausea, Vomiting Skin: Reports: No Symptoms Neurological: Reports: No Symptoms - Patient Data Vitals - Most Recent: Last Vital Signs Temp 36.7 C 12/18/17 05:34 Pulse 71 12/18/17 05:34 Resp 18 12/18/17 05:34 BP 145/62 H 12/18/17 05:34 Pulse Ox 91 L 12/18/17 07:39 Weight - Most Recent: 94.801 kg I&O - Last 24 hours: Intake & Output 12/17/17 12/18/17 12/18/17 22:59 06:59 14:59 Intake Total 1951 860 Output Total 425 700 Balance 1526 160 Lab Results - Last 24 hrs: Laboratory Results - last 24 hr 12/18/17 12/18/17 Range/Units 06:35 06:35 WBC 12.4 H (4.0-10.0) x10^3/uL RBC 3.86 L (4.5-6.0) x10^6/uL Hgb 10.3 L (14.0-18.0) g/dL Hct 33.4 L (40.0-52.0) % MCV 86.5 (78.0-93.0) fL MCH 26.7 (26.0-32.0) pg MCHC 30.8 L (32.0-36.0) g/dL RDW Coeff of Roberto 14.9 (10.0-15.0) % Plt Count 271 (130-400) x10^3/uL Neut % (Auto) 84.4 H (50.0-80.0) % Lymph % (Auto) 8.2 L (25.0-50.0) % Benson % (Auto) 7.3 (2.0-11.0) % Eos % (Auto) 0.0 (0.0-4.0) % Baso % (Auto) 0.1 L (0.2-1.2) % Sodium 142 (136-145) mmol/L Potassium 3.9 (3.5-5.1) mmol/L Chloride 107 (98-107) mmol/L Carbon Dioxide 27 (21-32) mmol/L BUN 45 H (7-18) mg/dL Creatinine 1.4 H (0.70-1.30) mg/dL Est Cr Clr Drug Dosing 53.04 mL/min Estimated GFR (MDRD) 49 Glucose 125 H (74-106) mg/dL Calcium 8.4 L (8.5-10.1) mg/dL YOHAN Results - Last 24 hrs: Microbiology 12/16/17 19:09 MRSA Surveillance Culture - Final Nasal, Right NO MRSA ISOLATED 12/17/17 11:34 Influenza Type A Antigen Screen - Final Nasopharyngeal Swab NEGATIVE INFLUENZA A VIRUS AG Influenza Type B Antigen Screen - Final NEGATIVE INFLUENZA B VIRUS AG Med Orders - Current: Current Medications Acetaminophen (Tylenol) 650 mg RECTAL Q4H PRN PRN Reason: Mild pain/fever Albuterol/Ipratropium (Duoneb 3.0-0.5 Mg/3 Ml) 3 ml NEB Q4H [facility] Last Admin: 12/18/17 07:38 Dose: 3 ml Citalopram Hydrobromide (Celexa) 40 mg PO DAILY [facility] Last Admin: 12/18/17 08:18 Dose: 40 mg Enoxaparin Sodium (Lovenox) 40 mg SUBCUT DAILY [facility] Last Admin: 12/18/17 08:18 Dose: 40 mg Furosemide (Lasix) 40 mg IV DAILY [facility] Last Admin: 12/18/17 08:18 Dose: 40 mg Haloperidol Lactate (Haldol) 5 mg IVPUSH ONETIME PRN PRN Reason: Agitation Memantine (Namenda) 10 mg PO BID [facility] Last Admin: 12/18/17 08:18 Dose: 10 mg Metoprolol Tartrate (Lopressor) 12.5 mg PO BID [facility] Last Admin: 12/18/17 08:18 Dose: 12.5 mg Non-Formulary Medication (Rivastigmine Tartrate [Rivastigmine]) 3 mg PO BID [facility] Last Admin: 12/18/17 08:19 Dose: Not Given Polyethylene Glycol (Miralax) 17 gm PO BID [facility] Last Admin: 12/18/17 08:18 Dose: 17 gm Risperidone (Risperidal) 1 mg PO DAILY [facility] Last Admin: 12/18/17 08:18 Dose: 1 mg Risperidone (Risperidal) 0.5 mg PO BEDTIME [facility] Last Admin: 12/17/17 21:12 Dose: 0.5 mg Senna/Docusate Sodium (Senna Plus) 2 tab PO TID [facility] Last Admin: 12/18/17 08:18 Dose: 2 tab Triamcinolone Acetonide (Triamcinolone Acetonide 0.1% Crm) 0 gm TOP BID PRN PRN Reason: Itching Discontinued Medications Albuterol/Ipratropium (Duoneb 3.0-0.5 Mg/3 Ml) 3 ml NEB Q4H PRN PRN Reason: dyspnea/wheezing Last Admin: 12/17/17 07:33 Dose: 3 ml Azithromycin (Zithromax) 500 mg PO ONETIME ONE Stop: 12/16/17 19:10 Last Admin: 12/16/17 20:05 Dose: Not Given Ceftriaxone Sodium (Rocephin) 1 gm IVPUSH ONETIME ONE Stop: 12/16/17 16:20 Last Admin: 12/16/17 16:45 Dose: 1 gm Diphenhydramine HCl (Benadryl) 25 mg IVPUSH ONETIME ONE Stop: 12/17/17 01:20 Last Admin: 12/17/17 01:53 Dose: 25 mg Diphtheria/Tetanus/Acell Pertussis (Adacel) 0.5 ml IM .ONCE ONE Stop: 12/16/17 19:21 Diphtheria/Tetanus/Acell Pertussis (Adacel) 0.5 ml IM .ONCE ONE Stop: 12/17/17 12:01 Furosemide (Lasix) 40 mg PO BIDDIURETIC [facility] Last Admin: 12/16/17 20:05 Dose: Not Given Furosemide (Lasix) 40 mg IV DAILY [facility] Vancomycin HCl 1,250 mg/ (Sodium Chloride) 250 mls @ 200 mls/hr IV ONETIME ONE Stop: 12/16/17 17:33 Last Admin: 12/16/17 16:57 Dose: 200 mls/hr Sodium Chloride (Normal Saline) 1,000 mls @ 100 mls/hr IV ASDIRECTED [facility] Last Admin: 12/17/17 14:32 Dose: 100 mls/hr Azithromycin 500 mg/ Sodium (Chloride) 250 mls @ 250 mls/hr IV ONETIME ONE Stop: 12/16/17 20:42 Last Admin: 12/16/17 20:48 Dose: 250 mls/hr Methylprednisolone Sodium Succinate (Solu-Medrol) 125 mg IVPUSH ONETIME ONE Stop: 12/16/17 16:11 Last Admin: 12/16/17 16:52 Dose: 125 mg - Exam Quality Assessment: Reports: Supplemental Oxygen General: Reports: Alert, Cooperative, No Acute Distress Lungs: Reports: Normal Respiratory Effort, Decreased Breath Sounds Cardiovascular: Reports: Irregular Rhythm (chronic AFib) GI/Abdominal Exam: Normal Bowel Sounds, Soft, Non-Tender Skin: Reports: Warm, Dry, Intact Neurological: Reports: No New Focal Deficit *Q Meaningful Use (DIS) - VTE *Q VTE Criteria *Q: VTE Mechanical Contraindications *Q: At Risk for Falls - Stroke *Q Stroke Criteria *Q: - AMI *Q AMI Criteria *Q:
== END 2017-12-18 11:08 ==
LOC: VM.ED 15:49 → VM.MS 18:01
PROVIDERS: ADMIT Nurse Practitioner Family; ATTEND Nurse Practitioner Family
DX: J44.1 Chronic obstructive pulmonary disease with (acute) exacerbation (principal); N17.9 Acute kidney failure, unspecified; E87.0 Hyperosmolality and hypernatremia; G30.9 Alzheimer's disease, unspecified; F02.81 Dementia in other diseases classified elsewhere, unspecified severity, with behavioral disturbance; I48.2 Chronic atrial fibrillation; I10 Essential (primary) hypertension; Z79.899 Other long term (current) drug therapy
CPT/HCPCS: 36415; 36600; 51702; 71045; 80048; 80053; 81001; 82803; 82962; 83605; 83880; 84484; 85025; 85027; 86140; 87040; 87086; 87804; 90471; 90715; 93005; 94640; 94660; 94760; 96361; 96365; 96367; 96372; 96375; 96376; 99217; 99220; 99225; 99284; 99285; A9270; G0378; J0456; J0696; J1200; J1650; J1940; J2930; J3370; J7030; J7050

== ENCOUNTER 2019-01-18 16:39 | Inpatient (IN) | payer MEDICARE, MEDICAID ==
[2019-01-18] MEDS ORDERED: Ondansetron 4 MG/2 ML SDV IV PRN (16:54)
[2019-01-18] MEDS ORDERED: HYDROmorphone 1 MG/ML Syringe IVPUSH PRN (16:54)
[2019-01-18] MEDS ORDERED: Acetaminophen 650 MG Supp RECTAL PRN (16:54)
[2019-01-18] MEDS ORDERED: cefTRIAXone 1 GM Vial IVPUSH ONE (16:59)
--- NOTE | 2019-01-18 17:02 | PCM.HP ---
H&P History of Present Illness - General Date of Service: 01/18/19 Admit Problem/Dx: Admission Diagnosis/Problem Admission Diagnosis/Problem Pneumonia Source of Information: Assisted Records - History of Present Illness Initial Comments - Free Text/Narative: Assessment / Plan Pneumonia of right lower lobe due to infectious organism Sepsis due to pneumonia Acute respiratory failure with hypoxia Plan: RLL infiltrate by CXR. Labs pending, incl BC - came in at end of clinic day. [employer] released new guidelines for treatment of ventilator associated pneumonia ( VAP) and hospital acquired pneumonia (HAP),Healthcare-associated pneumonia ( HCAP) has been done away with, as there was a lower risk for multi-drug resistant pathogens than expected in the HCAP population. Nonetheless, he is grossly septicso I think Vancplus Rocephin and Zithromax would be indicated. Otherwise I can't see any recent antibiotics in the past year. Given severity would recommend duonebs plus Solu-Medrol as well. We will do a mild fluid challenge no gross CHF by prior BNP. Supplemental oxygen to keep greater than 88%. Lovenox DVT prophylaxis given immobile with current severe respiratory flare. DNR. If he does not recover quickly next 48 hours would need to discuss with POA about further cares desired, aggressiveness versus comfort. Follow Up: No disposition on file. HPI / History / ROS Fever x2-3d Low O2 of 78%, resp 48, no cough, face flushed x 2 days Hosp for similar with HCAP 1y ago. Remote smoking hx w/o known COPD. Maybe mild diast CHF, last BNP was normal. Lives in [place] with advancing dementia. Medications w MedicationsPriortoVisit w Outpatient Medications Prior to Visit Medication Sig Dispense Refill omeprazole (PRILOSEC) 20 mg capsule Take 20 mg by mouth 1 time a day in the morning furosemide (LASIX) 40 mg tablet Take 40 mg by mouth 2 times a day metoprolol succinate (TOPROL XL) 25 mg SR tablet (24 hr) Take 1 tablet (25 mg) by mouth 1 time per day (Patient taking differently: Take 12.5 mg by mouth 2 times a day ) 90 tablet 3 polyethylene glycol (MIRALAX) powder DISSOLVE 17 GMS IN WATER AND TAKE BY MOUTH TWICE A DAY 527 g 11 risperiDONE (RISPERDAL) 1 mg tablet Take 1 tablet (1 mg) by mouth 1 time per day (Patient taking differently: Take 0.5 mg by mouth 2 times a day ) 30 tablet 0 escitalopram (LEXAPRO) 10 mg tablet Take 2 tablets (20 mg) by mouth 1 time per day For anxiety 90 tablet 3 furosemide (LASIX) 40 mg tablet Take 1 tablet (40 mg) by mouth 2 times a day 60 tablet 0 memantine (NAMENDA) 10 mg tablet Take 1 tablet (10 mg) by mouth 2 times a day 60 tablet 0 polyethylene glycol (MIRALAX) packet Take 1 packet by mouth 2 times a day Dissolve in 4 to 8 ounces of water, juice, soda, coffee, tea. 60 packet 0 rivastigmine (EXELON) 3 mg capsule Take 1 capsule (3 mg) by mouth 2 times a day 60 capsule 0 No facility-administered medications prior to visit. 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 On lasix. Adenomatous polyp of descending colon 12/19/2014 05/13/2015 3 tub alyssa polyps and 3 hyperplastic polyp. Had rectal polyp in Sep 2014. Anemia of unknown etiology 12/17/2017 12/17/2017 at 10.8. 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 11/23/2014 Approx 11/23/14 EGD confimred Duodenal ulcer, was on PPI's. 05/13/15 healed DU by EGD, continue on PPI. Known Barrets esophagitis as well. Blood transfusion CKD (chronic kidney disease) stage 3, GFR 30-59 ml/min 12/17/2017 12/17/2017 Cr 1.4, eGFR 49 Decubital ulcer 11/23/2014 11/23/2014 noted Duodenal ulcer 11/23/2014 Approx 11/23/14 EGD confimred Duodenal ulcer, was on PPI's. 05/13/15 healed DU by EGD, continue on PPI. Known Barrets esophagitis as well. Essential hypertension 11/23/2014 Generalized muscle weakness 11/23/2014 Intrinsic atopic dermatitis 12/19/2017 Uses TAC, Late onset Alzheimer's disease with behavioral disturbance 11/23/2014 Dementia onset in 2011, hospitalized in [place]. Poor historian with little records. Had low Vit B 12 in 2011 and started on med's. Head CT atrophy noted. Normal Folic acid and thyroid test. Had been in [facility] from 2011 until 2016. Was in [facility] for behavior problems in Sep 2017 until Nov 2017, came to [facility] in in Dec 11, 2017. Paroxysmal atrial fibrillation 11/23/2014 Unknown details commented on 11/23/2014. EKG at [facility] 12/17/2017 NSR. Not on anticoagulants, H/o duodenal ulcer in 2014 Substance abuse Alcohol use, unknown details Vitamin B12 deficiency 09/04/2012 Onset 09/04/12 at 89 w PastSurgicalHistory w Past Surgical History: Procedure Laterality Date CATARACT W PHACO Right 12/23/2015 Procedure: EXTRACTION CATARACT PHACOEMULSIFICATION WITH INTRAOCULAR LENS;; Surgeon: Robert Reece MD CATARACT W PHACO Left 01/06/2016 Procedure: EXTRACTION CATARACT PHACOEMULSIFICATION WITH INTRAOCULAR LENS;; Surgeon: Robert Reece MD COLON POLYP BX N/A 05/13/2015 Procedure: COLONOSCOPY WITH POLYP/BIOPSY;; Surgeon: Herbert Mendez MD HERNIA REPAIR UPPER ENDOSCOPY N/A 05/13/2015 Procedure: UPPER ENDOSCOPY-;; Surgeon: Herbert Mendez MD w FamilyHistory w No family history on file. w SocialHistory w Social History Socioeconomic History Marital status: Single Spouse name: Not on file Number of children: Not on file Years of education: Not on file Highest education level: Not on file Tobacco Use Smoking status: Former Smoker Tobacco comment: states quit smoking over 20 years ago Substance and Sexual Activity Alcohol use: Yes Comment: states only occasionally in the past. Denies currently Drug use: No Sexual activity: No Social History Narrative Goes by " Damon".Single, former Dementia onset in 2011, hospitalized in [place]. Poor historian with little records. Had low Vit B 12 in 2011 and started on med's. Head CT atrophy noted. Normal Folic acid and thyroid test. Had been in [facility] from 2011 until 2016. Was in [facility] for behavior problems in Sep 2017 until Nov 2017, came to [facility] in in Dec 11, 2017. Former smoker and former alcohol use. ROS Review of Systems Unable to perform ROS:Dementia Constitutional: Positive forfever. Gastrointestinal: Negative fordiarrheaand vomiting. Genitourinary: Negative fordecreased urine volume. Physical / Results BP 112/60 Pulse 105 Temp 102.1 F (38.9 C) (Tympanic) SpO2 87%|| Physical Exam Constitutional: He appearswell-developedand well-nourished. He appears distressed. Largely nonresponsive, tachypneic, diaphoretic Eyes:Pupils are equal, round, and reactive to light. Cardiovascular: Borderline tachycardia otherwise regular Pulmonary/Chest: To, mild accessory use, Rales right base Abdominal:Soft. Musculoskeletal:Normal range of motion. He exhibits noedema. Skin: Skin iswarm. He isdiaphoretic. - Related Data Allergies/Adverse Reactions: Allergies Allergy/AdvReac Type Severity Reaction Status Date / Time No Known Allergies Allergy Verified 12/16/17 16:10 Home Medications: Home Meds Escitalopram Oxalate 20 mg PO DAILY 12/16/17 [History] Furosemide 40 mg PO BID 12/16/17 [History] Memantine HCl 10 mg PO BID 12/16/17 [History] Metoprolol Tartrate 12.5 mg PO BID 12/16/17 [History] Polyethylene Glycol 3350 [MiraLAX] 17 gm PO BID 12/16/17 [History] Rivastigmine Tartrate [Rivastigmine] 3 mg PO BID 12/16/17 [History] Sennosides/Docusate Sodium [Senna Plus Tablet] 2 tab PO TID 12/16/17 [History] Triamcinolone Acetonide [Triamcinolone Acetonide 0.1% Crm] 1 dose TOP BID PRN [History] risperiDONE [Risperdal] 1 tab PO BEDTIME 12/16/17 [History] risperiDONE [RisperiDAL] 1 mg PO DAILY 02/17/18 [History] Past Medical History HEENT History: Reports: Cataract, Macular Degeneration Cardiovascular History: Reports: Hypertension, Other (See Below) Other Cardiovascular History: edema Respiratory History: Reports: COPD Gastrointestinal History: Reports: Chronic Constipation Neurological History: Reports: Alzheimers Disease, Other (See Below) Other Neuro History: dementia Psychiatric History: Reports: Alzheimers Disease, Dementia Endocrine/Metabolic History: Reports: Other (See Below) Other Endocrine/Metabolic History: lymphedema Hematologic History: Reports: B12 Deficiency - Past Surgical History HEENT Surgical History: Reports: Cataract Surgery Social & Family History - Family History Family Medical History: Noncontributory H&P Review of Systems - Review of Systems: Review Of Systems: Unable To Obtain Exam - Exam Exam: See Below - Vital Signs Vital Signs: Last Vital Signs Temp 39.2 C H 01/18/19 16:47 Pulse 110 H 01/18/19 16:47 Resp 36 H 01/18/19 16:47 BP 145/71 H 01/18/19 16:47 Pulse Ox 92 L 01/18/19 16:47 Weight: 83.007 kg Problem List Initiated/Reviewed/Updated: Yes Orders Last 24hrs: Active Orders 24 hr Category Date Time Status Admission Status [Patient Status] [ADT] Routine ADT 01/18/19 16:45 Active Patient Status [ADT] Routine ADT 01/18/19 16:54 Ordered Dietary Supplements [RC] BIDMEALS Care 01/18/19 17:00 Ordered Oxygen Therapy [RC] PRN Care 01/18/19 16:54 Ordered RT Aerosol Therapy [RC] ASDIRECTED Care 01/18/19 16:57 Ordered VTE/DVT Education [RC] PER UNIT ROUTINE Care 01/18/19 16:54 Ordered Vital Signs [RC] Q4H Care 01/18/19 16:54 Ordered Respiratory Care Assess and Treatment [CONS] Routine Cons 01/18/19 16:54 Ordered Clear Liquid Diet [DIET] Diet 01/18/19 Dinner Ordered C-REACTIVE PROTEIN [CHEM] Routine Lab 01/18/19 16:54 Ordered CBC WITH AUTO DIFF [HEME] Routine Lab 01/18/19 16:54 Ordered COMPREHENSIVE METABOLIC PN,CMP [CHEM] Routine Lab 01/18/19 16:54 Ordered CULTURE BLOOD [BC] Routine Lab 01/18/19 16:57 Ordered CULTURE MRSA SURVEY [RM] Routine Lab 01/18/19 16:53 Ordered CULTURE SPUTUM + SMEAR [RM] Stat Lab 01/18/19 16:54 Ordered INFLUENZA A+B AG SCREEN [RM] Urgent Lab 01/18/19 16:59 Ordered MAGNESIUM [CHEM] Routine Lab 01/18/19 16:54 Ordered PHOSPHORUS [CHEM] Routine Lab 01/18/19 16:54 Ordered TROPONIN I [CHEM] Routine Lab 01/18/19 16:54 Ordered Acetaminophen [Tylenol] Med 01/18/19 16:54 Ordered 650 mg RECTAL Q4H PRN Albuterol/Ipratropium [DuoNeb 3.0-0.5 MG/3 ML] Med 01/18/19 16:54 Ordered 3 ml NEB Q4H PRN Azithromycin [Zithromax] 500 mg Med 01/18/19 17:00 Ordered Sodium Chloride 0.9% [Normal Saline] 250 ml IV DAILY Enoxaparin [Lovenox] Med 01/19/19 08:00 Ordered 40 mg SUBCUT DAILY HYDROmorphone [Dilaudid] Med 01/18/19 16:54 Ordered 0.25 mg IVPUSH Q2H PRN Ibuprofen [Motrin] Med 01/18/19 16:54 Ordered 200 mg PO Q6H PRN Lactated Ringers @ 150 MLS/HR(1,000ml) Med 01/18/19 17:00 Ordered Lactated Ringers [Ringers, Lactated] 1,000 ml IV ASDIRECTED Ondansetron [Zofran] Med 01/18/19 16:54 Ordered 4 mg IV Q6H PRN Vancomycin 1,250 mg Med 01/18/19 17:00 Ordered Sodium Chloride 0.9% [Normal Saline] 250 ml IV Q12H cefTRIAXone [Rocephin] Med 01/18/19 16:59 Once 1 gm IVPUSH STAT ONE Resuscitation Status Routine Resus Stat 01/18/19 16:54 Ordered Medication Orders Acetaminophen (Tylenol) 650 mg RECTAL Q4H PRN PRN Reason: Mild pain/fever Albuterol/Ipratropium (Duoneb 3.0-0.5 Mg/3 Ml) 3 ml NEB Q4H PRN PRN Reason: dyspnea/wheezing Ceftriaxone Sodium (Rocephin) 1 gm IVPUSH STAT ONE Stop: 01/18/19 17:00 Enoxaparin Sodium (Lovenox) 40 mg SUBCUT DAILY [facility] Hydromorphone HCl (Dilaudid) 0.25 mg IVPUSH Q2H PRN PRN Reason: Pain (severe 7-10) Azithromycin 500 mg/ Sodium (Chloride) 250 mls @ 250 mls/hr IV DAILY [facility] Lactated Ringer's (Ringers, Lactated) 1,000 mls @ 150 mls/hr IV ASDIRECTED [facility] Vancomycin HCl 1,250 mg/ (Sodium Chloride) 250 mls @ 200 mls/hr IV Q12H [facility] Ibuprofen (Motrin) 200 mg PO Q6H PRN PRN Reason: Pain (mild 1-3) Ondansetron HCl (Zofran) 4 mg IV Q6H PRN PRN Reason: Nausea/Vomiting
[2019-01-18] MEDS: Lactated Ringers 1,000 ML IV SCH (18:03)
[2019-01-18] MEDS: Azithromycin 500 MG in Sodium Chloride 0.9% 250 ML IV SCH (18:03)
[2019-01-18] MEDS: Albuterol/Ipratropium 3.0-0.5 MG/3 ML Neb Soln NEB PRN (18:03)
[2019-01-18] MEDS: methylPREDNISolone Sodium Succinate 125 MG/2 ML SDV IVPUSH SCH (18:04)
[2019-01-18 18:52] LABS: ANION GAP 17.7 mmol/L (10-20)
[2019-01-18] MEDS ORDERED: Memantine 10 MG Tab PO SCH (20:00)
[2019-01-18] MEDS ORDERED: RIVASTIGMINE TARTRATE 3 MG PO SCH (20:00)
[2019-01-18] MEDS ORDERED: RISPERIDONE PO SCH (20:00)
[2019-01-18] MEDS: Polyethylene Glycol 3350 Powder 17 GM Packet PO SCH (20:18)
[2019-01-18] MEDS: risperiDONE 0.25 MG Tab PO SCH (21:41)
[2019-01-19] MEDS: Albuterol/Ipratropium 3.0-0.5 MG/3 ML Neb Soln NEB PRN ×2 (00:38→17:45)
[2019-01-19] MEDS: Lactated Ringers 1,000 ML IV SCH ×2 (00:57→07:46)
[2019-01-19] MEDS: methylPREDNISolone Sodium Succinate 125 MG/2 ML SDV IVPUSH SCH ×2 (04:43→17:22)
[2019-01-19] MEDS: Enoxaparin 40 MG/0.4 ML Syringe SUBCUT SCH (07:46)
[2019-01-19] MEDS: Ibuprofen 200 MG Tab PO PRN (07:47)
[2019-01-19] MEDS: risperiDONE 0.25 MG Tab PO SCH ×2 (07:47→19:20)
[2019-01-19] MEDS: Polyethylene Glycol 3350 Powder 17 GM Packet PO SCH ×2 (07:47→19:20)
[2019-01-19] MEDS ORDERED: ESCITALOPRAM OXALATE 20 MG PO SCH (08:00)
[2019-01-19] MEDS ORDERED: risperiDONE 1 MG Tab PO SCH (08:00)
[2019-01-19 08:05] LABS: ANION GAP 15.8 mmol/L (10-20)
--- NOTE | 2019-01-19 09:44 | PCM.PN ---
- General Info Date of Service: 01/19/19 Admission Dx/Problem (Free Text): Admission Diagnosis/Problem Admission Diagnosis/Problem Pneumonia Subjective Update: Pt was admitted into the hospital yesterday with sepsis pneumonia under Bacilio Israel. Pt was unresponsive to verbal stimuli upon admit. He would moan to painful stimuli. Pt had a fever and was unable to maintain his O2 saturations without supplemental O2 on 6L. Resp rate was 30s-40s. Pt does have a DNR/DNI order in place if medications do not help slow the infection. Over the course of the night. The patients fever's have decreased. Oxygen need has decreased. Currently on 2L. He has also begun to respond to verbal stimuli, however he still remains lethargic. Labs were completed this am. Lactic acid and creatinine has risen since yesterday however, over all his labs have improved. Pt did have some apple sauce and a glass of water for nursing this am without difficulty and stated he did have a smile on his face. Pt is resting comfortably currently in the room and does not appear to be in any distress. Functional Status: Reports: Pain Controlled, Tolerating Diet (pt ate apple sauce and had a glass of water ) - Review of Systems General: Reports: Fever, Weakness, Fatigue, Malaise, Appetite HEENT: Reports: No Symptoms Pulmonary: Reports: Shortness of Breath, Cough, Sputum Cardiovascular: Reports: No Symptoms Gastrointestinal: Reports: No Symptoms Genitourinary: Reports: No Symptoms Musculoskeletal: Reports: No Symptoms Skin: Reports: No Symptoms Neurological: Reports: Other (decrease in alertness ) Psychiatric: Reports: No Symptoms - Patient Data Vitals - Most Recent: Last Vital Signs Temp 37.4 C 01/19/19 04:49 Pulse 88 01/19/19 04:49 Resp 32 H 01/19/19 04:49 BP 112/54 L 01/19/19 04:49 Pulse Ox 97 01/19/19 04:49 Weight - Most Recent: 83.007 kg I&O - Last 24 Hours: Intake & Output 01/18/19 01/19/19 01/19/19 22:59 06:59 14:59 Intake Total 2248 240 Output Total 550 Balance 1698 240 Lab Results Last 24 Hours: Laboratory Results - last 24 hr 01/18/19 01/18/19 01/18/19 Range/Units 18:15 18:15 18:15 WBC 12.7 H (4.0-10.0) x10^3/uL RBC 4.67 (4.5-6.0) x10^6/uL Hgb 12.8 L D (14.0-18.0) g/dL Hct 41.6 (40.0-52.0) % MCV 89.1 (78.0-93.0) fL MCH 27.4 (26.0-32.0) pg MCHC 30.8 L (32.0-36.0) g/dL RDW Coeff of Roberto 14.7 (10.0-15.0) % Plt Count 187 D (130-400) x10^3/uL Neut % (Auto) 92.4 H (50.0-80.0) % Lymph % (Auto) 4.2 L (25.0-50.0) % [place] % (Auto) 3.4 (2.0-11.0) % Eos % (Auto) 0.0 (0.0-4.0) % Baso % (Auto) 0.0 L (0.2-1.2) % POC VBG pH (7.31-7.41) POC VBG pCO2 (41-51) POC VBG pO2 POC VBG HCO3 (23-28) POC VBG Total CO2 (24-29) POC VBG Base Excess ((-2) - 3) POC FiO2 Sodium 153 H D (136-145) mmol/L Potassium 3.7 (3.5-5.1) mmol/L Chloride 113 H (98-107) mmol/L Carbon Dioxide 26 (21-32) mmol/L Anion Gap 17.7 (10-20) mmol/L BUN 49 H (7-18) mg/dL Creatinine 1.7 H (0.70-1.30) mg/dL Est Cr Clr Drug Dosing 37.41 mL/min Estimated GFR (MDRD) 39 Glucose 156 H (74-106) mg/dL Lactic Acid 2.0 (0.4-2.0) mmol/L Calcium 8.8 (8.5-10.1) mg/dL Corrected Calcium 9.60 (8.5-10.1) mg/dL Phosphorus 2.0 L (2.6-4.7) mg/dL Magnesium 2.2 (1.8-2.4) mg/dL Total Bilirubin 0.4 (0.2-1.0) mg/dL AST 11 L (15-37) U/L ALT 23 (16-63) U/L Alkaline Phosphatase 57 (46-116) U/L Troponin I 0.017 (<=0.056) ng/mL C-Reactive Protein 28.7 H (<=0.9) mg/dL Total Protein 7.4 (6.4-8.2) g/dL Albumin 3.0 L (3.4-5.0) g/dL Globulin 4.4 Albumin/Globulin Ratio 0.68 Urine Color (YELLOW) Urine Appearance (CLEAR) Urine pH (5.0-8.0) Ur Specific [place] Urine Protein (NEGATIVE) mg/dL Urine Glucose (UA) (NEGATIVE) mg/dL Urine Ketones (NEGATIVE) mg/dL Urine Occult Blood (NEGATIVE) Urine Nitrite (NEGATIVE) Urine Bilirubin (NEGATIVE) Urine Urobilinogen (0.2) EU/dL Ur Leukocyte Esterase (NEGATIVE) Urine RBC (NOT SEEN) /HPF Urine WBC (NOT SEEN) /HPF Ur Squamous Epith Cells (NEGATIVE) /HPF Amorphous Sediment Urine Bacteria (NEGATIVE) /HPF Hyaline Casts (NEGATIVE) /HPF Granular Casts (NEGATIVE) /HPF Urine Mucus (NEGATIVE) /LPF 01/18/19 01/18/19 01/19/19 Range/Units 18:32 23:40 07:41 WBC (4.0-10.0) x10^3/uL RBC (4.5-6.0) x10^6/uL Hgb (14.0-18.0) g/dL Hct (40.0-52.0) % MCV (78.0-93.0) fL MCH (26.0-32.0) pg MCHC (32.0-36.0) g/dL RDW Coeff of Roberto (10.0-15.0) % Plt Count (130-400) x10^3/uL Neut % (Auto) (50.0-80.0) % Lymph % (Auto) (25.0-50.0) % [place] % (Auto) (2.0-11.0) % Eos % (Auto) (0.0-4.0) % Baso % (Auto) (0.2-1.2) % POC VBG pH 7.44 H (7.31-7.41) POC VBG pCO2 35 L (41-51) POC VBG pO2 61 POC VBG HCO3 23 (23-28) POC VBG Total CO2 24 (24-29) POC VBG Base Excess -1 ((-2) - 3) POC FiO2 0.28 Sodium 152 H (136-145) mmol/L Potassium 3.8 (3.5-5.1) mmol/L Chloride 115 H (98-107) mmol/L Carbon Dioxide 25 (21-32) mmol/L Anion Gap 15.8 (10-20) mmol/L BUN 48 H (7-18) mg/dL Creatinine 1.7 H (0.70-1.30) mg/dL Est Cr Clr Drug Dosing 37.41 mL/min Estimated GFR (MDRD) 39 Glucose 246 H (74-106) mg/dL Lactic Acid (0.4-2.0) mmol/L Calcium 8.5 (8.5-10.1) mg/dL Corrected Calcium (8.5-10.1) mg/dL Phosphorus (2.6-4.7) mg/dL Magnesium (1.8-2.4) mg/dL Total Bilirubin (0.2-1.0) mg/dL AST (15-37) U/L ALT (16-63) U/L Alkaline Phosphatase (46-116) U/L Troponin I (<=0.056) ng/mL C-Reactive Protein (<=0.9) mg/dL Total Protein (6.4-8.2) g/dL Albumin (3.4-5.0) g/dL Globulin Albumin/Globulin Ratio Urine Color Yellow (YELLOW) Urine Appearance Cloudy H (CLEAR) Urine pH 5.5 (5.0-8.0) Ur Specific [place] 1.025 Urine Protein 100 H (NEGATIVE) mg/dL Urine Glucose (UA) Negative (NEGATIVE) mg/dL Urine Ketones Negative (NEGATIVE) mg/dL Urine Occult Blood Moderate H (NEGATIVE) Urine Nitrite Negative (NEGATIVE) Urine Bilirubin Negative (NEGATIVE) Urine Urobilinogen 0.2 (0.2) EU/dL Ur Leukocyte Esterase Negative (NEGATIVE) Urine RBC 10-20 H (NOT SEEN) /HPF Urine WBC 0-5 (NOT SEEN) /HPF Ur Squamous Epith Cells Rare (NEGATIVE) /HPF Amorphous Sediment Moderate Urine Bacteria Not seen (NEGATIVE) /HPF Hyaline Casts Rare H (NEGATIVE) /HPF Granular Casts Moderate H (NEGATIVE) /HPF Urine Mucus Rare H (NEGATIVE) /LPF 01/19/19 01/19/19 Range/Units 07:41 07:41 WBC 10.8 H (4.0-10.0) x10^3/uL RBC 3.95 L (4.5-6.0) x10^6/uL Hgb 10.9 L D (14.0-18.0) g/dL Hct 35.9 L (40.0-52.0) % MCV 90.9 (78.0-93.0) fL MCH 27.6 (26.0-32.0) pg MCHC 30.4 L (32.0-36.0) g/dL RDW Coeff of Roberto 14.6 (10.0-15.0) % Plt Count 160 (130-400) x10^3/uL Neut % (Auto) 93.5 H (50.0-80.0) % Lymph % (Auto) 4.5 L (25.0-50.0) % [place] % (Auto) 1.9 L (2.0-11.0) % Eos % (Auto) 0.0 (0.0-4.0) % Baso % (Auto) 0.1 L (0.2-1.2) % POC VBG pH (7.31-7.41) POC VBG pCO2 (41-51) POC VBG pO2 POC VBG HCO3 (23-28) POC VBG Total CO2 (24-29) POC VBG Base Excess ((-2) - 3) POC FiO2 Sodium (136-145) mmol/L Potassium (3.5-5.1) mmol/L Chloride (98-107) mmol/L Carbon Dioxide (21-32) mmol/L Anion Gap (10-20) mmol/L BUN (7-18) mg/dL Creatinine (0.70-1.30) mg/dL Est Cr Clr Drug Dosing mL/min Estimated GFR (MDRD) Glucose (74-106) mg/dL Lactic Acid 2.9 H* (0.4-2.0) mmol/L Calcium (8.5-10.1) mg/dL Corrected Calcium (8.5-10.1) mg/dL Phosphorus (2.6-4.7) mg/dL Magnesium (1.8-2.4) mg/dL Total Bilirubin (0.2-1.0) mg/dL AST (15-37) U/L ALT (16-63) U/L Alkaline Phosphatase (46-116) U/L Troponin I (<=0.056) ng/mL C-Reactive Protein (<=0.9) mg/dL Total Protein (6.4-8.2) g/dL Albumin (3.4-5.0) g/dL Globulin Albumin/Globulin Ratio Urine Color (YELLOW) Urine Appearance (CLEAR) Urine pH (5.0-8.0) Ur Specific [place] Urine Protein (NEGATIVE) mg/dL Urine Glucose (UA) (NEGATIVE) mg/dL Urine Ketones (NEGATIVE) mg/dL Urine Occult Blood (NEGATIVE) Urine Nitrite (NEGATIVE) Urine Bilirubin (NEGATIVE) Urine Urobilinogen (0.2) EU/dL Ur Leukocyte Esterase (NEGATIVE) Urine RBC (NOT SEEN) /HPF Urine WBC (NOT SEEN) /HPF Ur Squamous Epith Cells (NEGATIVE) /HPF Amorphous Sediment Urine Bacteria (NEGATIVE) /HPF Hyaline Casts (NEGATIVE) /HPF Granular Casts (NEGATIVE) /HPF Urine Mucus (NEGATIVE) /LPF Ricardo Results Last 24 Hours: Microbiology 01/18/19 18:15 Influenza Type A Antigen Screen - Final Nasal Aspirate, Unspecified NEGATIVE INFLUENZA A VIRUS AG Influenza Type B Antigen Screen - Final NEGATIVE INFLUENZA B VIRUS AG Med Orders - Current: Current Medications Acetaminophen (Tylenol) 650 mg RECTAL Q4H PRN PRN Reason: Mild pain/fever Last Admin: 01/18/19 17:42 Dose: 650 mg Albuterol/Ipratropium (Duoneb 3.0-0.5 Mg/3 Ml) 3 ml NEB Q4H PRN PRN Reason: dyspnea/wheezing Last Admin: 01/19/19 00:38 Dose: 3 ml Enoxaparin Sodium (Lovenox) 40 mg SUBCUT DAILY GERONIMO Last Admin: 01/19/19 07:46 Dose: 40 mg Hydromorphone HCl (Dilaudid) 0.25 mg IVPUSH Q2H PRN PRN Reason: Pain (severe 7-10) Azithromycin 500 mg/ Sodium (Chloride) 250 mls @ 250 mls/hr IV Q24H [facility] Last Admin: 01/18/19 18:03 Dose: 250 mls/hr Lactated Ringer's (Ringers, Lactated) 1,000 mls @ 150 mls/hr IV ASDIRECTED [facility] Last Admin: 01/19/19 07:46 Dose: 150 mls/hr Vancomycin HCl 1,250 mg/ (Sodium Chloride) 250 mls @ 200 mls/hr IV Q24H [facility] Ibuprofen (Motrin) 200 mg PO Q6H PRN PRN Reason: Pain (mild 1-3) Last Admin: 01/19/19 07:47 Dose: 200 mg Methylprednisolone Sodium Succinate (Solu-Medrol) 125 mg IVPUSH Q12H [facility] Last Admin: 01/19/19 04:43 Dose: 125 mg Ondansetron HCl (Zofran) 4 mg IV Q6H PRN PRN Reason: Nausea/Vomiting Polyethylene Glycol (Miralax) 17 gm PO BID [facility] Last Admin: 01/19/19 07:47 Dose: Not Given Risperidone (Risperidal) 0.5 mg PO BID [facility] Last Admin: 01/19/19 07:47 Dose: 0.5 mg Senna/Docusate Sodium (Senna Plus) 2 tab PO TID [facility] Last Admin: 01/19/19 07:47 Dose: 2 tab Vancomycin HCl (Pharmacy To Dose - Vancomycin) 1 dose .XX ASDIRECTED [facility] Discontinued Medications Ceftriaxone Sodium (Rocephin) 1 gm IVPUSH STAT ONE Stop: 01/18/19 17:00 Last Admin: 01/18/19 18:04 Dose: 1 gm Vancomycin HCl 1,250 mg/ (Sodium Chloride) 250 mls @ 200 mls/hr IV Q12H [facility] Last Admin: 01/19/19 04:43 Dose: 200 mls/hr Memantine (Namenda) 10 mg PO BID [facility] - Exam Quality Assessment: Supplemental Oxygen, Urine Catheter, DVT Prophylaxis, Skin Breakdown General: Lethargic HEENT: Pupils Equal, Mucous Membr. Moist/[place] Neck: Supple Lungs: Decreased Breath Sounds, Rhonchi, Wheezing Cardiovascular: Regular Rate, Tachycardia GI/Abdominal Exam: Normal Bowel Sounds, Soft, Non-Tender, No Distention Back Exam: Normal Inspection Extremities: Normal Inspection, Normal Range of Motion, No Pedal Edema Peripheral Pulses: 1+: Dorsalis Pedis (L), Dorsalis Pedis (R), 2+: Radial (L), Radial (R) Skin: Warm, Dry Psy/Mental Status: Other - Problem List Review Problem List Initiated/Reviewed/Updated: Yes - My Orders Last 24 Hours: My Active Orders 01/20/19 05:11 CBC WITH AUTO DIFF [HEME] AM COMPREHENSIVE METABOLIC PN,CMP [CHEM] AM 01/20/19 06:00 LACTIC ACID [CHEM] DAILY 01/21/19 05:11 CBC WITH AUTO DIFF [HEME] AM COMPREHENSIVE METABOLIC PN,CMP [CHEM] AM - Assessment Assessment:: 1. sepsis 2. pneumonia 3. Respiratory failure requiring O2 4. Elevated Creatine 5. decreased level of consciousness - Plan Plan:: 1. sepsis Pt continues to be on Vancomycin. He CrCL is elevated. We will change the Vancomycin to every 24 hours and will also order a trough to ensure proper metabolism. 2. pneumonia Pt continues to be on Azithromycin. Will continue with the current dose with no changes. Lung sounds appear to be improving and O2 needs are decreasing. 3. Respiratory failure requiring O2 Pt will continue to use supplemental O2 to keep O2 saturations above 92L. Pt is a DNR/DNI if the need for O2 becomes to high nursing staff are aware to contact provider. Further discussions and treatment options may need to be discussed with family if it arises. Currently he is improving with current abx treatment and neb treatments. Will continue to use the neb treats every 4 hours prn. 4. Elevated Creatine Pt is on maintenance fluids to help with hydration. He is currently on LR. He will be changed over to normal saline for his blood sugars are elevated. BP has remained stable over the night as well. We have also changed his Vancomycin to every 24 hours to help the kidneys. 5. decreased level of consciousness Continue with O2, antibiotics, DTV prophylaxis and physical therapy consult on Monday.
[2019-01-19] MEDS: Sodium Chloride 0.9% 1,000 ML IV SCH ×2 (11:07→17:46)
[2019-01-19] MEDS: Azithromycin 500 MG in Sodium Chloride 0.9% 250 ML IV SCH (17:22)
[2019-01-20] MEDS: Sodium Chloride 0.9% 1,000 ML IV SCH ×2 (00:33→08:18)
[2019-01-20] MEDS: methylPREDNISolone Sodium Succinate 125 MG/2 ML SDV IVPUSH SCH ×2 (04:59→17:26)
[2019-01-20 08:16] LABS: ANION GAP 15.4 mmol/L (10-20)
[2019-01-20] MEDS: Albuterol/Ipratropium 3.0-0.5 MG/3 ML Neb Soln NEB PRN (08:16)
[2019-01-20] MEDS: Enoxaparin 40 MG/0.4 ML Syringe SUBCUT SCH (08:16)
[2019-01-20] MEDS: Ibuprofen 200 MG Tab PO PRN (08:16)
[2019-01-20] MEDS: risperiDONE 0.25 MG Tab PO SCH ×2 (08:17→19:24)
[2019-01-20] MEDS: Polyethylene Glycol 3350 Powder 17 GM Packet PO SCH ×2 (08:17→19:24)
--- NOTE | 2019-01-20 11:50 | PCM.PN ---
- General Info Date of Service: 01/20/19 Admission Dx/Problem (Free Text): Admission Diagnosis/Problem Admission Diagnosis/Problem Pneumonia Subjective Update: Pt was admitted into the hospital 01/18/2019 with sepsis pneumonia under Bacilio Israel. Pt was unresponsive to verbal stimuli upon admit. He would moan to painful stimuli. Pt had a fever and was unable to maintain his O2 saturations without supplemental O2 on 6L. Resp rate was 30s-40s. Pt does have a DNR/DNI order in place if medications do not help slow the infection. Patient has been afebrile. Oxygen need has decreased. Currently on 1L. Patient is much more alert and verbal today. Labs were completed this am. WBC normal. BUN still elevated but creatinine is acceptable. Pt did have some apple sauce and a glass of water for nursing this am without difficulty and stated he did have a smile on his face. Pt is resting comfortably currently in the room and does not appear to be in any distress. Patient had a tub bath this morning and did well. Functional Status: Reports: Pain Controlled, Tolerating Diet, Urinating. Denies : Ambulating Pain Score: 0 - Review of Systems General: Denies: Fever, Chills Pulmonary: Denies: Shortness of Breath, Cough Cardiovascular: Denies: Chest Pain, Palpitations Gastrointestinal: Denies: Abdominal Pain, Nausea, Vomiting Skin: Reports: No Symptoms Neurological: Reports: Confusion (chronic dementia) - Patient Data Vitals - Most Recent: Last Vital Signs Temp 37.4 C 01/20/19 10:00 Pulse 84 01/20/19 10:00 Resp 20 01/20/19 05:07 BP 118/49 L 01/20/19 10:00 Pulse Ox 93 L 01/20/19 10:00 Weight - Most Recent: 83.007 kg I&O - Last 24 Hours: Intake & Output 01/19/19 01/20/19 01/20/19 22:59 06:59 14:59 Intake Total 2591 480 597 Output Total 325 550 Balance 2266 -70 597 Lab Results Last 24 Hours: Laboratory Results - last 24 hr 01/20/19 01/20/19 01/20/19 Range/Units 07:39 07:39 07:39 WBC 7.5 (4.0-10.0) x10^3/uL RBC 3.58 L (4.5-6.0) x10^6/uL Hgb 9.9 L (14.0-18.0) g/dL Hct 32.3 L (40.0-52.0) % MCV 90.2 (78.0-93.0) fL MCH 27.7 (26.0-32.0) pg MCHC 30.7 L (32.0-36.0) g/dL RDW Coeff of Roberto 14.2 (10.0-15.0) % Plt Count 161 (130-400) x10^3/uL Neut % (Auto) 90.9 H (50.0-80.0) % Lymph % (Auto) 6.7 L (25.0-50.0) % [place] % (Auto) 2.3 (2.0-11.0) % Eos % (Auto) 0.0 (0.0-4.0) % Baso % (Auto) 0.1 L (0.2-1.2) % Sodium 153 H (136-145) mmol/L Potassium 3.4 L (3.5-5.1) mmol/L Chloride 118 H (98-107) mmol/L Carbon Dioxide 23 (21-32) mmol/L Anion Gap 15.4 (10-20) mmol/L BUN 51 H (7-18) mg/dL Creatinine 1.3 (0.70-1.30) mg/dL Est Cr Clr Drug Dosing 48.91 mL/min Estimated GFR (MDRD) 53 Glucose 164 H (74-106) mg/dL Lactic Acid 1.7 (0.4-2.0) mmol/L Calcium 8.1 L (8.5-10.1) mg/dL Corrected Calcium 9.62 (8.5-10.1) mg/dL Total Bilirubin 0.3 (0.2-1.0) mg/dL AST 17 (15-37) U/L ALT 23 (16-63) U/L Alkaline Phosphatase 41 L (46-116) U/L Total Protein 6.2 L (6.4-8.2) g/dL Albumin 2.1 L (3.4-5.0) g/dL Globulin 4.1 Albumin/Globulin Ratio 0.51 Ricardo Results Last 24 Hours: Microbiology 01/18/19 18:06 Aerobic Blood Culture - Preliminary Blood NO GROWTH AFTER 1 DAY Anaerobic Blood Culture - Preliminary NO GROWTH AFTER 1 DAY 01/18/19 18:15 Aerobic Blood Culture - Preliminary Blood - Arm, Right NO GROWTH AFTER 1 DAY Anaerobic Blood Culture - Preliminary NO GROWTH AFTER 1 DAY 01/18/19 16:54 MRSA Surveillance Culture - Final Nasal, Unspecified NO MRSA ISOLATED Med Orders - Current: Current Medications Acetaminophen (Tylenol) 650 mg RECTAL Q4H PRN PRN Reason: Mild pain/fever Last Admin: 01/18/19 17:42 Dose: 650 mg Albuterol/Ipratropium (Duoneb 3.0-0.5 Mg/3 Ml) 3 ml NEB Q4H PRN PRN Reason: dyspnea/wheezing Last Admin: 01/20/19 08:16 Dose: 3 ml Enoxaparin Sodium (Lovenox) 40 mg SUBCUT DAILY [facility] Last Admin: 01/20/19 08:16 Dose: 40 mg Hydromorphone HCl (Dilaudid) 0.25 mg IVPUSH Q2H PRN PRN Reason: Pain (severe 7-10) Azithromycin 500 mg/ Sodium (Chloride) 250 mls @ 250 mls/hr IV Q24H [facility] Last Admin: 01/19/19 17:22 Dose: 250 mls/hr Vancomycin HCl 1,250 mg/ (Sodium Chloride) 250 mls @ 200 mls/hr IV Q24H [facility] Last Admin: 01/20/19 04:59 Dose: 200 mls/hr Sodium Chloride (Normal Saline) 1,000 mls @ 150 mls/hr IV ASDIRECTED [facility] Last Admin: 01/20/19 08:18 Dose: 150 mls/hr Ibuprofen (Motrin) 200 mg PO Q6H PRN PRN Reason: Pain (mild 1-3) Last Admin: 01/20/19 08:16 Dose: 200 mg Methylprednisolone Sodium Succinate (Solu-Medrol) 125 mg IVPUSH Q12H [facility] Last Admin: 01/20/19 04:59 Dose: 125 mg Ondansetron HCl (Zofran) 4 mg IV Q6H PRN PRN Reason: Nausea/Vomiting Polyethylene Glycol (Miralax) 17 gm PO BID [facility] Last Admin: 01/20/19 08:17 Dose: Not Given Risperidone (Risperidal) 0.5 mg PO BID [facility] Last Admin: 01/20/19 08:17 Dose: 0.5 mg Senna/Docusate Sodium (Senna Plus) 2 tab PO TID [facility] Last Admin: 01/20/19 08:17 Dose: Not Given Vancomycin HCl (Pharmacy To Dose - Vancomycin) 1 dose .XX ASDIRECTED [facility] Discontinued Medications Ceftriaxone Sodium (Rocephin) 1 gm IVPUSH STAT ONE Stop: 01/18/19 17:00 Last Admin: 01/18/19 18:04 Dose: 1 gm Lactated Ringer's (Ringers, Lactated) 1,000 mls @ 150 mls/hr IV ASDIRECTED [facility] Last Admin: 01/19/19 07:46 Dose: 150 mls/hr Vancomycin HCl 1,250 mg/ (Sodium Chloride) 250 mls @ 200 mls/hr IV Q12H [facility] Last Admin: 01/19/19 04:43 Dose: 200 mls/hr Memantine (Namenda) 10 mg PO BID [facility] - Exam Quality Assessment: Supplemental Oxygen, DVT Prophylaxis General: Alert, Cooperative, No Acute Distress Lungs: Decreased Breath Sounds, Crackles (bilateral bases) Cardiovascular: Regular Rate, Regular Rhythm GI/Abdominal Exam: Normal Bowel Sounds, Soft, Non-Tender Peripheral Pulses: 2+: Radial (L), Radial (R) Skin: Warm, Dry Neurological: No New Focal Deficit, Other (chronically confusion due to advanced dementia) - Problem List Review Problem List Initiated/Reviewed/Updated: Yes - Assessment Assessment:: 1. Sepsis 2/2 Pneumonia - improved 3. Respiratory failure - resolved 4. Elevated BUN/Creatinine - stable 5. Decreased LOC - resolved - Plan Plan:: 1. Sepsis 2/2 to pneumonia - Continue Vancomycin and Azithromycin; encourage C/ DB; wean O2 as able 2. Respiratory failure requiring O2 - resolved 3. Elevated Creatine - Improved, will stop IVF as patient is taking in PO fluids well Continue with O2 PRN to keep sats >= 88% due to hx of COPD, antibiotics, DTV prophylaxis and physical therapy consult on Monday.
[2019-01-20] MEDS: Azithromycin 500 MG in Sodium Chloride 0.9% 250 ML IV SCH (17:26)
[2019-01-20] MEDS: Sodium Chloride 0.9% 10 ML Syringe FLUSH PRN (17:27)
[2019-01-20] MEDS ORDERED: Potassium Chloride 20 MEQ Tab.ER PO ONE (18:03)
[2019-01-21] MEDS: methylPREDNISolone Sodium Succinate 125 MG/2 ML SDV IVPUSH SCH ×2 (04:58→17:07)
[2019-01-21 05:07] LABS: ANION GAP 14.2 mmol/L (10-20)
[2019-01-21] MEDS: Enoxaparin 40 MG/0.4 ML Syringe SUBCUT SCH (08:16)
[2019-01-21] MEDS: Polyethylene Glycol 3350 Powder 17 GM Packet PO SCH ×2 (08:17→19:40)
[2019-01-21] MEDS: risperiDONE 0.25 MG Tab PO SCH ×2 (08:18→19:40)
--- NOTE | 2019-01-21 08:53 | PN ---
Progress Note for MALI LOVE Date: 01/21/2019 Room #: VM.203 SUBJECTIVE: Today is his hospital day #4. He was admitted with pneumonia and sepsis. He had been seen in the clinic and had a chest x-ray that showed right lower lobe infiltrate. He was started on both Rocephin and Zithromax as well as Solu-Medrol. He was given some IV fluids as well as oxygen was required. To note, the patient has greatly improved. He is alert. He was able to have his IV fluids. His influenza test had been negative. Blood cultures were negative. He was not able to give a sputum sample and he is more alert, although, the patient does have severe dementia and his baseline not very interactive with people. OBJECTIVE: Vital Signs: His temperature is 36.8 which is improved from 39.2 on admission, his pulse is 63, blood pressure is 117/45, respiratory rate is 20, O2 sats are 96% on room air. General: He is alert, sitting up in bed, does turn to my voice, does not claim to recognize me. Skin: Noted to be somewhat oily. Heart: Regular rate. Lungs: Have diminished breath sounds. Abdomen: Soft. Genitourinary: Catheter has clear fluid. LABORATORY STUDIES: His lab today shows his white blood cell count is improved to 5.8, his hemoglobin is 10.1 which has stabilized with 87 segs, and 7 lymphs. Sodium is 151, potassium is 5.2, creatinine is improved to 1.4, and glucose is 168. His AST is 34, ALT is 60, alkaline phosphatase 41, total protein 6.1, and albumin 2.1. Vanc trough was high at 12, normal 5 to 10. IMPRESSION: 1. Right lower lobe pneumonia. 2. Sepsis. 3. Hypernatremia. 4. Alzheimer's dementia. 5. Respiratory failure. PLAN: We will reduce his steroid dose today. We will review his chest x-ray. We will continue him off oxygen right now and once his x-ray is reviewed, we will resume his metoprolol, as he has started to have more of a tremor of his hands that is recurring and hopefully anticipate switching to an oral antibiotic for tomorrow, and hopefully discharged back to the assisted tomorrow and encourage fluid intake. GM01/21/2019 08:19:35 MODL: 01/21/2019 08:46:01 /[id number] MTDD
[2019-01-21] MEDS: Metoprolol Tartrate 25 MG Tab PO SCH ×2 (08:55→19:36)
--- NOTE | 2019-01-21 09:22 | CR ---
[id number] RAD/RAD Chest PA or AP 1V EXAM: RAD Chest PA or AP 1V INDICATION: PNEUMONIA FOLLOW UP. COMPARISON: December 17, 2017. DISCUSSION: Right lower lobe pneumonia. The amount of parenchymal opacification has increased since prior examination in November 2017. Blunting of the right costophrenic sulcus is most consistent with small effusion. Left lung is similar in appearance, again demonstrating linear opacity most consistent with scarring or subsegmental atelectasis. Findings are superimposed on changes of COPD. IMPRESSION: Right lower lobe pneumonia with a small effusion. Valente Cristobal MD 01/21/19 0920 Thank you for allowing us to participate in the care of your patient.
[2019-01-21] MEDS ORDERED: Azithromycin 250 MG Tab PO SCH (16:30)
[2019-01-21] MEDS: Sodium Chloride 0.9% 10 ML Syringe FLUSH PRN ×2 (17:07→19:41)
[2019-01-21] MEDS: Albuterol/Ipratropium 3.0-0.5 MG/3 ML Neb Soln NEB PRN (18:06)
[2019-01-21] MEDS: Cefuroxime 250 MG Tab PO SCH (18:06)
[2019-01-21] MEDS: Ibuprofen 200 MG Tab PO PRN (19:47)
[2019-01-22] MEDS: Albuterol/Ipratropium 3.0-0.5 MG/3 ML Neb Soln NEB PRN (00:36)
[2019-01-22] MEDS: methylPREDNISolone Sodium Succinate 125 MG/2 ML SDV IVPUSH SCH (05:33)
[2019-01-22] MEDS: Sodium Chloride 0.9% 10 ML Syringe FLUSH PRN (05:34)
[2019-01-22 07:12] LABS: ANION GAP 18.1 mmol/L (10-20)
[2019-01-22] MEDS: Metoprolol Tartrate 25 MG Tab PO SCH (07:30)
[2019-01-22] MEDS: Cefuroxime 250 MG Tab PO SCH (07:30)
[2019-01-22] MEDS: risperiDONE 0.25 MG Tab PO SCH (07:30)
[2019-01-22] MEDS: Enoxaparin 40 MG/0.4 ML Syringe SUBCUT SCH (07:31)
[2019-01-22] MEDS: Polyethylene Glycol 3350 Powder 17 GM Packet PO SCH (07:32)
--- NOTE | 2019-01-22 08:51 | PN ---
Progress Note for MALI LOVE Date: 01/22/2019 Room #: VM.203 SUBJECTIVE: The patient is noted to be much more alert today. He was switched from his vancomycin to Ceftin yesterday as he has good oral intake. He has been able to be off IV fluids and has stabilized quite a bit from his condition. He is much more alert. OBJECTIVE: Vital Signs: His temperature is 37.2, pulse 75, blood pressure 127/63, respiratory rate 20, and saturations are 91% on room air. General: He is alert. Heart: Regular rate and rhythm. Lungs: Have diminished breath sounds on bases, otherwise are clear. Skin: Slightly diaphoretic. LABORATORY DATA: His lab today shows his white blood cell count is 4.5, hemoglobin 10.4, 92 segs, 6 lymphocytes. His sodium is 151, which is stable for him. Potassium was 4.1, creatinine 1.3 which is at his baseline with GFR is 53. Glucose is 206, which is improved as steroids have been reduced down. His CRP is 3.6 today, which is greatly improved from 28.7 on admission. IMPRESSION: 1. Community-acquired pneumonia. 2. Respiratory depression which is greatly improved. 3. Delirium which is improved. 4. Chronic dementia. 5. Chronic kidney disease. PLAN: We will have the patient be placed on oral prednisone today and he is on oral Ceftin as well as Zithromax which today will be a fifth day of dosing of this, so that can be stopped and otherwise the patient will be resumed on his prison medications, but will reduce lasix to 40 mg daily. He has used some duonebs. GM01/22/2019 08:27:49 MODL: 01/22/2019 08:43:07 /[id number]
--- NOTE | 2019-01-23 06:53 | DISCH ---
PRIMARY DIAGNOSES: 1. Community-acquired pneumonia on right middle lobe. 2. Respiratory failure, secondary to pneumonia. 3. Sepsis/systemic inflammatory response syndrome. 4. Hypernatremia, which is chronic. 5. Alzheimer's dementia. 6. Hypertension. 7. Paroxysmal atrial fibrillation. 8. Sharma's esophagitis. 9. Chronic diastolic heart failure. 10.Chronic kidney disease, stage 3. SUMMARY OF HISTORY AND PHYSICAL: The patient is an 83-year-old male who presented to the clinic being very febrile, lethargic, was noted to have a chest x-ray done at the clinic by Dr. Bacilio Riley that showed a right middle lobe pneumonia. Labs were pending. The patient was not very responsive so felt to need inpatient care. SUMMARY OF HOSPITAL COURSE: He was admitted to acute care, placed on vancomycin plus Rocephin and Zithromax. Because of severity of his respiratory problems, he was also placed on Solu-Medrol, and given some mild fluid challenge, but being careful not to worsen his known history of CHF. He was noted to be DNR. Laboratory data on admission shows white blood cell count 12.7, hemoglobin 12.8, and platelets 187. Venous blood gas is pH 7.44, pCO2 35, pO2 61, bicarb 23, FiO2 0.28. Sodium 153, potassium 3.7, creatinine 1.7, BUN 49, GFR 39, glucose 156, lactic acid 2.0, calcium 8.8, phosphorus 2.0, slightly low magnesium 2.2, total bili 0.4, AST 11, ALT 23, alk phos 57, troponin 0.017, CRP 28.7, total protein 7.4, albumin 3.0. Urinalysis came back showing 10 to 20 red blood cells, moderate segments noted, rare epithelial cells, no white blood cells, no bacteria seen. The patient's blood cultures did not grow any organisms present. He was given DuoNebs to help with respiratory toilet. He was given supplemental oxygen. The patient's Rocephin had been stopped. It was noted by his 3rd hospital day he was much more alert, improved. His laboratory data was also improving and it is noted that his white blood cell count had gone down to 7.5. To note, his lactic acid had gone up to 2.9 by 01/19, but then on 01/20, it improved to 1.7. The patient's chest x-ray was repeated, which did show a right infiltrate, however, it was different technique from clinic to the hospital. His sodium continued to improve. He was switched to oral Ceftin and the vancomycin was stopped. His blood cultures never grew any organisms. Does not able to give a sputum culture. On 01/22, his white blood cell count was 4.5, hemoglobin 10.4, platelets 209 with 92 segs, 9 lymphs, sodium 151, potassium 4.2, creatinine 1.3, BUN 53, EGFR is 53, glucose was 206, and calcium was 8.4. CRP was 3.6, which had greatly improved. To note, his Solu-Medrol had been reduced down and then he was switched to oral prednisone. The patient was tolerating oral fluids for a day. He had stayed afebrile so it was felt that he was able to be transferred back to [facility]. MEDICATIONS: His medications at time of transfer will be Senna Plus 2 tabs 3 times a day, MiraLAX 17 g twice a day, Risperdal 0.5 mg b.i.d., triamcinolone 1 applicator b.i.d. p.r.n. rash, metoprolol 12.5 mg b.i.d., furosemide was reduced to 40 mg 1 pill daily, omeprazole 20 mg 1 pill daily, dulcolax 10 mg suppository p.r.n., Tylenol 325 2 pills q.4 h. p.r.n., dulcolax 5 mg tablet p.r.n., Zithromax 500 mg daily for 5 days, Ceftin 500 mg twice a day for 7 days, and prednisone 20 mg daily for 3 days. DISCHARGE INSTRUCTIONS: The patient will need to have lab work done on 01/24 of a CMP and a basic metabolic profile and the patient will receive physical therapy, occupational therapy, and speech. GM01/22/2019 08:55:30 MODL: 01/23/2019 06:43:13 /[id number]
[2019-01-23] MEDS ORDERED: predniSONE 20 MG Tab PO SCH (08:00)
== END 2019-01-22 09:25 | DRG 871 ==
LOC: VM.MS 16:45
PROVIDERS: ADMIT Family Medicine; ATTEND Family Medicine
DX: A41.9 Sepsis, unspecified organism (principal); J18.1 Lobar pneumonia, unspecified organism; J96.01 Acute respiratory failure with hypoxia; J44.0 Chronic obstructive pulmonary disease with (acute) lower respiratory infection; F02.81 Dementia in other diseases classified elsewhere, unspecified severity, with behavioral disturbance; I13.0 Hypertensive heart and chronic kidney disease with heart failure and stage 1 through stage 4 chronic kidney disease, or unspecified chronic kidney disease; I50.32 Chronic diastolic (congestive) heart failure; E87.0 Hyperosmolality and hypernatremia; I48.0 Paroxysmal atrial fibrillation; G30.1 Alzheimer's disease with late onset; N18.3 Chronic kidney disease, stage 3 (moderate); Z96.1 Presence of intraocular lens; K59.09 Other constipation; Z66 Do not resuscitate; R41.0 Disorientation, unspecified; K22.70 Barrett's esophagus without dysplasia; Z79.899 Other long term (current) drug therapy; Z86.010 Personal history of colon polyps; Z87.891 Personal history of nicotine dependence; Z98.41 Cataract extraction status, right eye
CPT/HCPCS: 36415; 51702; 71045; 80048; 80053; 80202; 81001; 82803; 83605; 83735; 84100; 84484; 85007; 85025; 85027; 86140; 87040; 87804; 87804-59; 94640; A9270-GY; J0456; J0696; J1650; J2930; J3370; J7030; J7050; J7120; J7620-GY

== ENCOUNTER 2019-07-15 10:13 | Inpatient (IN) | payer MEDICARE, MEDICAID ==
[2019-07-15] MEDS ORDERED: Sodium Chloride 0.9% 10 ML Syringe FLUSH PRN ×2 (10:49→12:12)
--- NOTE | 2019-07-15 11:08 | EDM.PDOC ---
ED HPI GENERAL MEDICAL PROBLEM - General Chief Complaint: Fever Stated Complaint: RESPIRATORY Time Seen by Provider: 07/15/19 10:44 Source of Information: Reports: [facility] Records - History of Present Illness INITIAL COMMENTS - FREE TEXT/NARRATIVE: Reid is an 83 y/o male who is here in the ER with a report of a fever and crackles that he developed over the weekend. He has also had cold symptoms including a runny nose and a cough. His temp was 101.6 and he had increased respirations also per [facility] nurse. His appetite is poor, but it is hard to say if that is because of the acute illness or the Alzeimer's. Associated Symptoms: Reports: Cough, Fever/Chills, Weakness Treatments [employer]ER: Reports: Acetaminophen - Related Data Allergies Allergy/AdvReac Type Severity Reaction Status Date / Time No Known Allergies Allergy Verified 07/15/19 10:54 Home Meds: Home Meds Metoprolol Tartrate 12.5 mg PO BID 12/16/17 [History] Polyethylene Glycol 3350 [MiraLAX] 17 gm PO BID 12/16/17 [History] Sennosides/Docusate Sodium [Senna Plus Tablet] 2 tab PO TID 12/16/17 [History] risperiDONE [Risperdal] 0.5 mg PO BID 12/16/17 [History] Acetaminophen 650 mg PO Q4H PRN 01/18/19 [History] Bisacodyl [Dulcolax] 5 mg PO ASDIRECTED PRN 01/18/19 [History] Omeprazole 20 mg PO ACBREAKFAST 01/18/19 [History] Furosemide [Lasix] 40 mg PO DAILY #30 tab 01/22/19 [Rx] Panthenol/Gly/Dimethicone/H2O [Cavilon Foot & Dry Skin Cream] 113 ml TP BID [History] Past Medical History HEENT History: Reports: Cataract, Macular Degeneration Cardiovascular History: Reports: Afib, Heart Failure, Hypertension, Other (See Below) Other Cardiovascular History: edema Respiratory History: Reports: COPD Gastrointestinal History: Reports: Chronic Constipation Genitourinary History: Reports: Chronic Renal Insuffiency Neurological History: Reports: Alzheimers Disease, Other (See Below) Other Neuro History: dementia Psychiatric History: Reports: Alzheimers Disease, Dementia Endocrine/Metabolic History: Reports: Other (See Below) Other Endocrine/Metabolic History: lymphedema Hematologic History: Reports: B12 Deficiency - Past Surgical History HEENT Surgical History: Reports: Cataract Surgery Social & Family History - Family History Family Medical History: Noncontributory - Tobacco Use Smoking Status *Q: Unknown Ever Smoked ED ROS GENERAL - Review of Systems Review Of Systems: Unable To Obtain (patient has Alzeimer's) Constitutional: Reports: Fever Respiratory: Reports: Cough, Sputum ED EXAM, GENERAL - Physical Exam Exam: See Below Exam Limited By: Altered Mental Status General Appearance: Alert, WD/WN, No Apparent Distress, Other (Wheelchair bound elderly male) Eye Exam: Bilateral Eye: PERRL Ears: Normal External Exam, Normal Canal, Normal TMs Nose: Normal Inspection, No Blood, Nasal Drainage (note clear nasal drainage) Throat/Mouth: Other (Unable to assess as patient clamps his mouth shut when attempting to look at his throat) Head: Atraumatic, Normocephalic Neck: Normal Inspection, Supple, Non-Tender Respiratory/Chest: No Respiratory Distress, No Accessory Muscle Use, Crackles ( posteriorly), Wheezing (Faint inspiratory wheezing OSBALDO posteriorly) Cardiovascular: Normal Peripheral Pulses, Regular Rate, Rhythm, No Edema, No JVD , No Murmur GI/Abdominal: Normal Bowel Sounds, Soft, Non-Tender, No Organomegaly, No Distention (Male) Exam: Normal Inspection Rectal (Males) Exam: Deferred Back Exam: Normal Inspection Extremities: Normal Inspection, Non-Tender, No Pedal Edema, Normal Capillary Refill Neurological: Alert, Other (CN grossly intact; alert but does not respond with any verbal response) Skin Exam: Warm, Dry, Intact, Normal Color, No Rash Lymphatic: No Adenopathy Course - Vital Signs Text/Narrative:: 1035 The patient was seen by the [employer] THICKENER OPERATOR. Labs and CXR were ordered. 1140 Labs and xrays wre reviewed. [address] Bone who is the patient's PCP and she will admit to Acute Care for further evaluation Last Recorded V/S: Last Vital Signs Temp 36.9 C 07/15/19 11:45 Pulse 75 07/15/19 11:45 Resp 21 H 07/15/19 11:45 BP 101/45 L 07/15/19 11:45 Pulse Ox 90 L 07/15/19 11:45 - Orders/Labs/Meds Orders: Active Orders 24 hr Category Date Time Status Admission Status [Patient Status] [ADT] Routine ADT 07/15/19 11:56 Ordered CULTURE BLOOD [BC] Stat Lab 07/15/19 11:03 Received CULTURE BLOOD [BC] Stat Lab 07/15/19 11:09 Received Sodium Chloride 0.9% [Saline Flush] Med 07/15/19 10:49 Active 10 ml FLUSH ASDIRECTED PRN Blood Culture x2 Reflex Set [OM.PC] Stat Oth 07/15/19 10:48 Ordered Saline Lock Insert [OM.PC] Stat Ot 07/15/19 10:49 Ordered Medication Orders Sodium Chloride (Saline Flush) 10 ml FLUSH ASDIRECTED PRN PRN Reason: Keep Vein Open Labs: Laboratory Tests 07/15/19 07/15/19 07/15/19 Range/Units 11:03 11:03 11:03 WBC 9.9 (4.0-10.0) x10^3/uL RBC 4.27 L (4.5-6.0) x10^6/uL Hgb 11.8 L (14.0-18.0) g/dL Hct 37.2 L (40.0-52.0) % MCV 87.1 (78.0-93.0) fL MCH 27.6 (26.0-32.0) pg MCHC 31.7 L (32.0-36.0) g/dL RDW Coeff of Roberto 14.1 (10.0-15.0) % Plt Count 215 (130-400) x10^3/uL Neut % (Auto) 75.9 (50.0-80.0) % Lymph % (Auto) 10.5 L (25.0-50.0) % [place] % (Auto) 13.1 H (2.0-11.0) % Eos % (Auto) 0.3 (0.0-4.0) % Baso % (Auto) 0.2 (0.2-1.2) % Sodium 143 (136-145) mmol/L Potassium 4.1 (3.5-5.1) mmol/L Chloride 106 (98-107) mmol/L Carbon Dioxide 24 (21-32) mmol/L Anion Gap 17.1 (10-20) mmol/L BUN 38 H (7-18) mg/dL Creatinine 1.5 H (0.70-1.30) mg/dL Est Cr Clr Drug Dosing TNP Estimated GFR (MDRD) 45 Glucose 119 H (74-106) mg/dL Lactic Acid 1.3 (0.4-2.0) mmol/L Calcium 8.2 L (8.5-10.1) mg/dL Corrected Calcium 8.76 (8.5-10.1) mg/dL Total Bilirubin 0.4 (0.2-1.0) mg/dL AST 13 L (15-37) U/L ALT 35 (16-63) U/L Alkaline Phosphatase 79 (46-116) U/L Total Protein 7.4 (6.4-8.2) g/dL Albumin 3.3 L (3.4-5.0) g/dL Globulin 4.1 Albumin/Globulin Ratio 0.80 Urine Color (YELLOW) Urine Appearance (CLEAR) Urine pH (5.0-8.0) Ur Specific [place] Urine Protein (NEGATIVE) mg/dL Urine Glucose (UA) (NEGATIVE) mg/dL Urine Ketones (NEGATIVE) mg/dL Urine Occult Blood (NEGATIVE) Urine Nitrite (NEGATIVE) Urine Bilirubin (NEGATIVE) Urine Urobilinogen (0.2) EU/dL Ur Leukocyte Esterase (NEGATIVE) Urine RBC (NOT SEEN) /HPF Urine WBC (NOT SEEN) /HPF Ur Squamous Epith Cells (NEGATIVE) /HPF Urine Bacteria (NEGATIVE) /HPF Hyaline Casts (NEGATIVE) /HPF Urine Mucus (NEGATIVE) /LPF 07/15/19 Range/Units 11:16 WBC (4.0-10.0) x10^3/uL RBC (4.5-6.0) x10^6/uL Hgb (14.0-18.0) g/dL Hct (40.0-52.0) % MCV (78.0-93.0) fL MCH (26.0-32.0) pg MCHC (32.0-36.0) g/dL RDW Coeff of Rboerto (10.0-15.0) % Plt Count (130-400) x10^3/uL Neut % (Auto) (50.0-80.0) % Lymph % (Auto) (25.0-50.0) % [place] % (Auto) (2.0-11.0) % Eos % (Auto) (0.0-4.0) % Baso % (Auto) (0.2-1.2) % Sodium (136-145) mmol/L Potassium (3.5-5.1) mmol/L Chloride (98-107) mmol/L Carbon Dioxide (21-32) mmol/L Anion Gap (10-20) mmol/L BUN (7-18) mg/dL Creatinine (0.70-1.30) mg/dL Est Cr Clr Drug Dosing Estimated GFR (MDRD) Glucose (74-106) mg/dL Lactic Acid (0.4-2.0) mmol/L Calcium (8.5-10.1) mg/dL Corrected Calcium (8.5-10.1) mg/dL Total Bilirubin (0.2-1.0) mg/dL AST (15-37) U/L ALT (16-63) U/L Alkaline Phosphatase (46-116) U/L Total Protein (6.4-8.2) g/dL Albumin (3.4-5.0) g/dL Globulin Albumin/Globulin Ratio Urine Color Yellow (YELLOW) Urine Appearance Slightly cloudy H (CLEAR) Urine pH 6.0 (5.0-8.0) Ur Specific [place] >=1.030 Urine Protein 30 H (NEGATIVE) mg/dL Urine Glucose (UA) Negative (NEGATIVE) mg/dL Urine Ketones Negative (NEGATIVE) mg/dL Urine Occult Blood Negative (NEGATIVE) Urine Nitrite Negative (NEGATIVE) Urine Bilirubin Negative (NEGATIVE) Urine Urobilinogen 0.2 (0.2) EU/dL Ur Leukocyte Esterase Negative (NEGATIVE) Urine RBC 0-5 (NOT SEEN) /HPF Urine WBC Not seen (NOT SEEN) /HPF Ur Squamous Epith Cells Rare (NEGATIVE) /HPF Urine Bacteria Occasional H (NEGATIVE) /HPF Hyaline Casts Few H (NEGATIVE) /HPF Urine Mucus Few H (NEGATIVE) /LPF Meds: Medications Generic Name Dose Route Start Last Admin Trade Name Freq PRN Reason Stop Dose Admin Sodium Chloride 10 ml 07/15/19 10:49 Saline Flush FLUSH ASDIRECTED PRN Keep Vein Open Departure - Departure Time of Disposition: 11:50 Disposition: Admitted As Inpatient 68 Condition: Good Clinical Impression: Fever, Dehydration COPD (chronic obstructive pulmonary disease) Qualifiers: COPD type: COPD with acute exacerbation Qualified Code(s): J44.1 - Chronic obstructive pulmonary disease with (acute) exacerbation - Discharge Information *PRESCRIPTION DRUG MONITORING PROGRAM REVIEWED*: Not Applicable *COPY OF PRESCRIPTION DRUG MONITORING REPORT IN PATIENT ARCHANA: Not Applicable Referrals: Marina Bone MD [Primary Care Provider] - Forms: ED Department Discharge - My Orders Last 24 Hours: My Active Orders 07/15/19 10:48 Blood Culture x2 Reflex Set [OM.PC] Stat 07/15/19 10:49 Sodium Chloride 0.9% [Saline Flush] 10 ml FLUSH ASDIRECTED PRN Saline Lock Insert [OM.PC] Stat 07/15/19 11:03 CULTURE BLOOD [BC] Stat 07/15/19 11:09 CULTURE BLOOD [BC] Stat 07/15/19 11:56 Admission Status [Patient Status] [ADT] Routine - Assessment/Plan Last 24 Hours: My Active Orders 07/15/19 10:48 Blood Culture x2 Reflex Set [OM.PC] Stat 07/15/19 10:49 Sodium Chloride 0.9% [Saline Flush] 10 ml FLUSH ASDIRECTED PRN Saline Lock Insert [OM.PC] Stat 07/15/19 11:03 CULTURE BLOOD [BC] Stat 07/15/19 11:09 CULTURE BLOOD [BC] Stat 07/15/19 11:56 Admission Status [Patient Status] [ADT] Routine
[2019-07-15 11:38] LABS: ANION GAP 17.1 mmol/L (10-20); CHLORIDE,CL 106 mmol/L (98-107); SODIUM,NA 143 mmol/L (136-145)
--- NOTE | 2019-07-15 11:53 | CR ---
[id number] RAD/RAD Chest PA or AP 1V EXAM: RAD Chest PA or AP 1V INDICATION: CRACKLES, FEVER. COMPARISON: January 21, 2019. DISCUSSION: Cardiomediastinal silhouette is stable in size and contour. No infiltrate, effusion, pneumothorax, or edema. Low lung volumes with associated vascular crowding. IMPRESSION: No acute cardiopulmonary abnormality. Lorne Chino DO 07/15/19 1152 Thank you for allowing us to participate in the care of your patient.
[2019-07-15] MEDS ORDERED: Bisacodyl 5 MG Tab PO PRN (12:22)
[2019-07-15] MEDS ORDERED: cefTRIAXone 1 GM in Sodium Chloride 0.9% 100 ML IV SCH (12:30)
[2019-07-15] MEDS: cefTRIAXone 1 GM Vial IVPUSH SCH (12:51)
--- NOTE | 2019-07-15 15:35 | HP ---
CHIEF COMPLAINT: Hypoxic with fever and respiratory distress. HISTORY OF PRESENT ILLNESS: The patient is an 83-year-old resident of [facility] who was brought over by ambulance. His temperature was 101.6, respirations were 36, sats were down to 90% on room air, blood pressure 104/52. He has had cold symptoms over the weekend, questionably crackles in his lungs. The patient was a Radha lift with extensive assist needed. To note, the patient's code level status is code 2, do not resuscitate. The patient was last hospitalized for pneumonia on 01/18/2019 to 01/22/2019. The patient does have severe dementia. The patient is not able to offer any history on his behalf. MEDICATIONS: He is currently on Tylenol 325 two pills every 4 hours as needed, miconazole cream 2% to buttocks at night, Dulcolax tablet 5 mg by mouth as needed daily for constipation, furosemide 40 mg 1 pill a day, metoprolol 12.5 mg 1 pill twice a day, MiraLAX 17 g by mouth 2 times a day, omeprazole 20 mg 1 pill daily, Risperdal 0.5 mg twice a day, and Senna Plus 2 pills 3 times a day. PAST MEDICAL HISTORY: The patient has Alzheimer's dementia. He has chronic kidney disease stage 3, anemia. He has had acute diastolic heart failure. He has had an adenomatous colon polyp in 2014, hypertension, paroxysmal atrial fibrillation. He has had a duodenal ulcer in 2014, Sharma's esophagitis in 2014, decubitus ulcers, vitamin B12 deficiency. He has had blood transfusions and history of substance abuse. PAST SURGICAL HISTORY: He has had cataract of both eyes. He has had colonoscopy with colon polyps. He has had hernia repair, EGD in 05/13/2015. SOCIAL HISTORY: He is single. He quit smoking 20 years ago. He has used alcohol in the past. Goes by the name of Damon. He has had dementia since 2011, had been hospitalized in [facility]. Low B12 in 2011. He had behavior problems, was at [facility] in 2017 until 11/2017, which he has been in the [facility]. Former smoker. Former alcohol use. REVIEW OF SYSTEMS: Has severe dementia, unable to give any other answers. Normally does not have problems with coughing. Behavior usually is withdrawn, but at times can be irritable. PHYSICAL EXAMINATION: Vital Signs: Temperature 37.4, pulse 81, blood pressure initially 84/33, respirations 18, saturations are 90%. On recheck an hour later, his temperature is 36.9, pulse 75, blood pressure is up to 101/45, and respiratory rate is 21, saturations are 90%. General: The patient appears more lethargic. He is diaphoretic. HEENT: Pupils are equal and reactive to light. Mucous membranes are dry. He does not speak. Heart: Regular rate. Lungs: Have diminished breath sounds on bases. Abdomen: Soft. Bowel sounds are present. Extremities: Lower extremities; no edema. Skin: No skin ulcers or sores. LABORATORY DATA: Shows his white blood cell count 9.9, hemoglobin 11.8, platelets are 215, with 75 segs, 10 lymphocytes, 13 monos. Sodium 143, potassium 4.1, creatinine 1.5, BUN 38, glucose is 119, lactic acid 1.3, calcium 8.2, AST 13, ALT 35, albumin 3.3. Urine is cloudy, pH 6.0, specific gravity greater than 1.030, protein 30, has occasional bacteria, few casts, few mucus. Chest x-ray is done which shows no acute infiltrate. It was portable. IMPRESSION: 1. Respiratory failure, suspect pneumonitis. 2. Hypotension, suspect dehydration. 3. Acute dehydration. 4. Alzheimer dementia. PLAN: The patient will be admitted to Acute Care. We will place him on Rocephin. We will hydrate him. Anticipate him to be able to be returned to the long term. Blood cultures were pending at the present time. Code level status is do not resuscitate, do not intubate. GM07/15/2019 12:10:06 MODL: 07/15/2019 15:12:05 /[id number]
[2019-07-15] MEDS: Lactated Ringers 1,000 ML IV SCH ×2 (15:58→19:49)
[2019-07-15] MEDS: Enoxaparin 30 MG/0.3 ML Syringe SUBCUT SCH (19:49)
[2019-07-15] MEDS: Polyethylene Glycol 3350 Powder 17 GM Packet PO SCH (19:49)
[2019-07-15] MEDS: risperiDONE 0.25 MG Tab PO SCH (19:50)
[2019-07-15] MEDS: [UNRECOGNIZED DRUG - OTHER] TP SCH (19:50)
[2019-07-15] MEDS: GLY TP SCH (19:50)
[2019-07-15] MEDS: DIMETHICONE TP SCH (19:50)
[2019-07-15] MEDS: Metoprolol Tartrate 25 MG Tab PO SCH (20:02)
[2019-07-15] MEDS: Acetaminophen 325 MG Tab PO PRN (20:05)
[2019-07-16] MEDS: Lactated Ringers 1,000 ML IV SCH ×2 (02:03→12:38)
[2019-07-16] MEDS: Omeprazole 20 MG Cap.CR PO SCH (06:12)
[2019-07-16 07:00] LABS: CHLORIDE,CL 108 mmol/L (98-107); SODIUM,NA 144 mmol/L (136-145)
[2019-07-16 07:01] LABS: ANION GAP 14.1 mmol/L (10-20)
[2019-07-16] MEDS: cefTRIAXone 1 GM Vial IVPUSH SCH (08:09)
[2019-07-16] MEDS: Metoprolol Tartrate 25 MG Tab PO SCH ×2 (08:10→20:12)
[2019-07-16] MEDS: Polyethylene Glycol 3350 Powder 17 GM Packet PO SCH ×2 (08:10→20:10)
[2019-07-16] MEDS: DIMETHICONE TP SCH ×2 (08:11→20:10)
[2019-07-16] MEDS: [UNRECOGNIZED DRUG - OTHER] TP SCH ×2 (08:11→20:10)
[2019-07-16] MEDS: risperiDONE 0.25 MG Tab PO SCH ×2 (08:11→20:10)
[2019-07-16] MEDS: Furosemide 40 MG Tab PO SCH (08:11)
[2019-07-16] MEDS: GLY TP SCH ×2 (08:11→20:10)
--- NOTE | 2019-07-16 09:15 | CR ---
[id number] RAD/RAD Chest PA or AP 1V EXAM: RAD Chest PA or AP 1V INDICATION: FEBRILE, FOLLOW-UP CONCERN FOR PNEUMONIA. COMPARISON: None. DISCUSSION: Cardiomediastinal silhouette is normal in size and contour. Left lower lobe pulmonary infiltrate. Pulmonary hyperinflation. No pneumothorax. IMPRESSION: Left lower lobe pulmonary infiltrate is more conspicuous today when compared to the previous study. Follow-up imaging after appropriate therapy in 4-6 weeks to ensure resolution is recommended. Lorne Chino DO 07/16/19 0914 Thank you for allowing us to participate in the care of your patient.
--- NOTE | 2019-07-16 09:50 | PN ---
Progress Note for MALI LOVE Date: 07/16/2019 Room #: VM.221 SUBJECTIVE: The patient had a quiet night. No concerns overnight. He still continues to require oxygen. OBJECTIVE: Vital Signs: His temperature max was on admit was 37.4, now down to 36.5 this morning, pulse of 84, blood pressure is 137/51, respiratory rate is 18; saturations are 94% on 2 L. Skin: Mildly diaphoretic. He is more alert. He does smile at me. Heart: Regular rate and rhythm. Lungs: Clear to auscultation. Abdomen: Soft. Extremities: No edema. LABORATORY DATA: Lab shows his white blood cell count is improved to 6.8, hemoglobin 10.3, platelets 155, with segs 75, 13 lymphs, 10 monocytes. Sodium is 144, potassium 4.1, creatinine 1.2 which is improved, GFR is 58 which is improved, BUN is 31 which is improved, AST 10, ALT 24. CRP is up to 10.9. MRSA screen is negative. Chest x-ray is pending today. IMPRESSION: 1. Pneumonia, suspected, improving. 2. Dehydration, improving. 3. Alzheimer's dementia. 4. Hypertension. PLAN: We will reduce his IV fluid rate today. We will advance his diet. We will repeat chest x-ray. We will recheck lab tomorrow morning. Anticipate hopeful discharge back to the residential tomorrow. GM07/16/2019 08:22:51 MODL: 07/16/2019 09:43:34 /[id number]
[2019-07-16] MEDS: Acetaminophen 325 MG Tab PO PRN ×2 (14:20→18:11)
[2019-07-16] MEDS ORDERED: Sodium Chloride 0.9% 10 ML Syringe FLUSH PRN (17:28)
[2019-07-16] MEDS: Enoxaparin 30 MG/0.3 ML Syringe SUBCUT SCH (20:10)
[2019-07-17] MEDS: Omeprazole 20 MG Cap.CR PO SCH (06:19)
[2019-07-17 06:40] LABS: CHLORIDE,CL 106 mmol/L (98-107); SODIUM,NA 142 mmol/L (136-145)
[2019-07-17] MEDS: risperiDONE 0.25 MG Tab PO SCH ×2 (07:26→19:28)
[2019-07-17] MEDS: cefTRIAXone 1 GM Vial IVPUSH SCH (07:26)
[2019-07-17] MEDS: Polyethylene Glycol 3350 Powder 17 GM Packet PO SCH ×2 (07:26→19:28)
[2019-07-17] MEDS: Furosemide 40 MG Tab PO SCH (07:26)
[2019-07-17] MEDS: Metoprolol Tartrate 25 MG Tab PO SCH ×2 (07:27→19:29)
[2019-07-17] MEDS: [UNRECOGNIZED DRUG - OTHER] TP SCH ×2 (07:35→20:45)
[2019-07-17] MEDS: GLY TP SCH ×2 (07:35→20:45)
[2019-07-17] MEDS: DIMETHICONE TP SCH ×2 (07:35→20:45)
[2019-07-17] MEDS: guaiFENesin 600 MG Tab.ER PO SCH ×2 (08:46→19:29)
--- NOTE | 2019-07-17 10:19 | PN ---
Progress Note for MALI LOVE Date: 07/17/2019 Room #: VM.221 SUBJECTIVE: The patient has still been requiring oxygen. He has been having a little bit more of productive cough. His chest x-ray yesterday did show evidence of a pneumonia. Otherwise, he has been a little bit more alert. OBJECTIVE: Vital Signs: His temperature is 36.5, blood pressure is 147/55, pulse 68, respiratory rate 19, saturations are 95% on 2 L. General: He is sitting calmly in the bed. Heart: Regular rate and rhythm, Lungs: Have diminished breath sounds on bases. Abdomen: Soft. Extremities: No edema. LABORATORY DATA: Shows his white blood cell count is 6.3; hemoglobin 10.0, stable; platelets 164. His sodium is 142, potassium 4.0, creatinine 1.1, GFR greater than 60. CRP is improved to 9.1 from 10.9 yesterday. Sputum culture has not been obtained. IMPRESSION: 1. Pneumonia, left lower lobe. 2. Dehydration, improved. 3. Hypoxemia, improving. PLAN: We will continue to keep the patient here at the hospital. We will add CPT to help with pulmonary toilet. We will try to get weaned off oxygen. Continue IV Rocephin today. His IV fluids were saline locked yesterday, and we will repeat blood work tomorrow to make certain that his renal function is maintaining and hopefully we can transfer him back to the [facility] tomorrow. We will add also some guaifenesin as a mucolytic to see if that also can help improve pulmonary function. GM07/17/2019 08:23:51 MODL: 07/17/2019 09:11:12 /[id number]
[2019-07-17] MEDS: Enoxaparin 30 MG/0.3 ML Syringe SUBCUT SCH (19:28)
[2019-07-18] MEDS: Omeprazole 20 MG Cap.CR PO SCH (06:08)
[2019-07-18] MEDS: Polyethylene Glycol 3350 Powder 17 GM Packet PO SCH ×2 (07:24→19:53)
[2019-07-18] MEDS: Furosemide 40 MG Tab PO SCH (07:24)
[2019-07-18] MEDS: Cefuroxime 250 MG Tab PO SCH ×2 (07:24→19:53)
[2019-07-18] MEDS: risperiDONE 0.25 MG Tab PO SCH ×2 (07:24→19:54)
[2019-07-18] MEDS: Metoprolol Tartrate 25 MG Tab PO SCH ×2 (07:24→19:53)
[2019-07-18] MEDS: DIMETHICONE TP SCH ×2 (07:25→19:55)
[2019-07-18] MEDS: GLY TP SCH ×2 (07:25→19:55)
[2019-07-18] MEDS: [UNRECOGNIZED DRUG - OTHER] TP SCH ×2 (07:25→19:55)
[2019-07-18] MEDS: guaiFENesin 600 MG Tab.ER PO SCH ×2 (07:25→19:54)
[2019-07-18 08:07] LABS: ANION GAP 15.1 mmol/L (10-20); CHLORIDE,CL 105 mmol/L (98-107); SODIUM,NA 142 mmol/L (136-145)
--- NOTE | 2019-07-18 08:22 | CR ---
[id number] RAD/RAD Chest PA or AP 1V EXAM: SINGLE VIEW CHEST. INDICATION: FOLLOW-UP PNEUMONIA COMPARISON: CORRELATION IS MADE WITH THE EXAM OF 2018 FINDINGS: There is mild bibasilar atelectasis There is an incomplete inspiratory effort There is no definite infiltrate There is question of right suprahilar fullness At some point, consider contrast CT chest IMPRESSION: NO DEFINITE PNEUMONIA BIBASILAR HYPOVENTILATORY CHANGES QUESTION OF RIGHT HILAR PATHOLOGY José Prasad MD 07/18/19 0821 Thank you for allowing us to participate in the care of your patient.
--- NOTE | 2019-07-18 09:26 | PN ---
Progress Note for MALI LOVE Date: 07/18/2019 Room #: VM.221 SUBJECTIVE: The patient ran a low-grade fever last night at 37 degrees. The patient has had a little bit more of an audible cough and seems to have a little bit more difficult time clearing secretions. He is noted to be a little more alert today. He was able to be weaned down to 1 L of oxygen this morning. OBJECTIVE: Vital Signs: His temperature is 36.5, his blood pressure is 128/58, pulse 66, respirations are 18, and saturations are 95% on 1 L. General: He is alert, sitting in bed, does not express any speech. He does have a little bit of audible congestion noted in his chest. Heart: Regular rate and rhythm. Lungs: Have diminished breath sounds on base. Abdomen: Soft. LABORATORY DATA: Lab today shows his white blood cell count dropped to 4.4, hemoglobin is improved at 11.0, platelets are 179, 69 segs, 16 lymphocytes. Sodium is 142, potassium 4.1, creatinine 1.1, GFR greater than 60. His chest x-ray is read as doubtful pneumonia, question of a right suprahilar mass. Recommended CT scan with contrast. IMPRESSION: 1. Pneumonia. 2. Hypoxemia. 3. Suprahilar mass. 4. Dementia. 5. Dehydration, improved. PLAN: He has not been able to get a sputum yet. We will hopefully be able to have RT induce it tomorrow. We will add DuoNeb to see if this helps with pulmonary toilet as well as oxygenation. We will set him up for CT scan today of his lungs. We will not send him to the [facility] today as we do not feel he is quite stable enough to go to the [facility]. He was switched from IV Rocephin to oral Ceftin, we will start today, and I do feel that is appropriate. The patient's IV had infiltrated yesterday so we did not resume it. GM07/18/2019 08:34:28 MODL: 07/18/2019 09:13:43 /[id number]
[2019-07-18] MEDS: Albuterol/Ipratropium 3.0-0.5 MG/3 ML Neb Soln NEB SCH ×4 (11:28→22:03)
[2019-07-18] MEDS ORDERED: Iopamidol 612 MG/ML 100 ML Bottle IVPUSH ONE (14:22)
--- NOTE | 2019-07-18 15:18 | CT ---
[id number] CT/CT Chest W IV EXAM: CT Chest W IV CLINICAL DATA: RT SUPRAHILAR MASS, POSSIBLE PNEUMONIA COMPARISON: Chest radiograph from 07/18/2019. FINDINGS: LUNGS: Dependent atelectasis at the lung bases bilaterally. Airspace consolidation involving the dependent portion of the lungs bilaterally. Additionally there is mild bronchiectasis and thickening of the airways. No pneumothorax or effusion. No endobronchial lesions. No perihilar mass is identified. HEART AND GREAT VESSELS: The heart is borderline enlarged. Atherosclerotic calcifications of the aorta and its branches. MEDIASTINUM AND LYMPHATICS: No mediastinal or hilar lymphadenopathy. UPPER ABDOMINAL ORGANS: Unremarkable. BONES: Scattered changes of spondylosis in the spine. No fracture or osseous lesion. IMPRESSION: 1. Airspace consolidation of the dependent portions of the lungs with associated bronchiectasis and thickening of the airway. These findings could be seen with acute on chronic aspiration. Lorne Chino DO 07/18/19 [id number] Thank you for allowing us to participate in the care of your patient.
[2019-07-18] MEDS: Enoxaparin 30 MG/0.3 ML Syringe SUBCUT SCH (19:54)
[2019-07-19] MEDS: Albuterol/Ipratropium 3.0-0.5 MG/3 ML Neb Soln NEB SCH ×2 (02:20→07:32)
[2019-07-19] MEDS: Omeprazole 20 MG Cap.CR PO SCH (06:20)
[2019-07-19 07:18] LABS: CHLORIDE,CL 105 mmol/L (98-107); SODIUM,NA 142 mmol/L (136-145)
[2019-07-19 07:20] LABS: ANION GAP 13.1 mmol/L (10-20)
[2019-07-19] MEDS: Polyethylene Glycol 3350 Powder 17 GM Packet PO SCH (09:37)
[2019-07-19] MEDS: Cefuroxime 250 MG Tab PO SCH (09:37)
[2019-07-19] MEDS: risperiDONE 0.25 MG Tab PO SCH (09:38)
[2019-07-19] MEDS: Furosemide 40 MG Tab PO SCH (09:39)
[2019-07-19] MEDS: guaiFENesin 600 MG Tab.ER PO SCH (09:39)
[2019-07-19] MEDS: Metoprolol Tartrate 25 MG Tab PO SCH (09:39)
[2019-07-19] MEDS: DIMETHICONE TP SCH (09:42)
[2019-07-19] MEDS: [UNRECOGNIZED DRUG - OTHER] TP SCH (09:42)
[2019-07-19] MEDS: GLY TP SCH (09:42)
--- NOTE | 2019-07-19 10:00 | PN ---
Progress Note for MALI LOVE Date: 07/19/2019 Room #: VM.221 SUBJECTIVE: The patient had a quiet night. No concerns noted in his chart. To note yesterday, we had done a CT scan of his chest because of the concern with suprahilar mass. CT just only showed atelectasis with incomplete inspiration. No concerns for pneumonia either were noted. OBJECTIVE: VITAL SIGNS: Objectively, his temperature this morning is 36.3, pulse 72, blood pressure is 129/51, respiratory rate 19, and saturations 91% on 1 L. GENERAL: The patient is alert, sitting in bed, does have a few audible upper respiratory sounds noted. HEART: Regular rate and rhythm. LUNGS: Have clear bases. ABDOMEN: Soft. EXTREMITIES: No edema. LABORATORY DATA: Today shows his hemoglobin back to 10.0, white blood cell count 6.3. Sodium 142, potassium 4.1, creatinine 1.4, and GFR is 49. LFTs normal. CRP is improved to 6.7 from maximum of 10.9. ProBNP is improved to 523. IMPRESSION: 1. Pneumonitis, presumed. 2. Respiratory distress, which is improved. 3. Hypoxemia, persistent. 4. Dementia. PLAN: We will get the patient sent back to senior living today. We will not continue DuoNebs. He is not able to work with incentive spirometry, due to his dementia. His dementia does cause him to not breathe deeply, he may from current health problems. We will see if RT can induce the sputum today as well. We will continue the Ceftin antibiotics and mucinex. GM07/19/2019 08:30:56 MODL: 07/19/2019 09:49:46 /[id number] MTDD
--- NOTE | 2019-07-19 11:54 | DISCH ---
PRIMARY DIAGNOSES: 1. Community-acquired pneumonia. 2. Hypoxemia related pneumonia. 3. Respiratory distress. 4. Dehydration, acute. 5. Alzheimer's dementia. 6. Hypertension. SUMMARY OF HISTORY AND PHYSICAL: The patient is an 83-year-old resident of [facility] who came in by ambulance. He has had a temperature of 101.6, respirations were 36, sats were down to 90% on room air. The patient was noted to be quite dehydrated. He has not had any sort of choking episode prior to this happening. The patient was not able to offer any history on his behalf. PHYSICAL EXAMINATION: General: On admission, he was quite diaphoretic. Lungs: Had diminished breath sounds on bases. Abdomen: Soft. LABORATORY DATA: White blood cell count 9.9, hemoglobin 11.8, platelets 215, 75 segs, 10 lymphocytes, 13 monos. Sodium 143, potassium 4.1, creatinine 1.5, BUN 38, glucose 119, lactic acid 1.3. LFTs normal. Urine was cloudy, occasional bacteria. Chest x-ray done did not show any acute infiltrate. SUMMARY OF HOSPITAL COURSE: Because of concerns with fever with tachypnea and hypoxemia, he was treated for pneumonia as well as he was given rehydration and was placed on Rocephin. To note, chest x-ray the next morning did show infiltrate on left lower lobe. The patient got better more alert after IV hydration, IV fluids were reduced down. It is noted, he did mount another fever again, but was not coughing so much, was possibly felt to be more atelectasis. He was placed on schedule Mucinex, which did help. He was placed on DuoNeb to help with respiratory function, really did not change much. He was able to be weaned down to 1 L of oxygen, but not able to be completely taken off it. To note, he did have a CT scan of his chest done because of concern for suprahilar mass on the right side. CT was done on 07/18/2019. Report came back showing airspace consolidation in dependent portions of lungs associated with bronchiectasis and thickening of the airways. There could be seen acute on chronic aspiration. No hilar masses were found. No lymphadenopathy was noted. His laboratory data did improve. His hemoglobin was felt to be artificially high due to dehydration when he first presented, but seemed to stabilize out at 10.0 after rehydration, white blood cell count was 6.3 on 07/19/2019. Sodium was 142, potassium 4.1, creatinine was 1.4, GFR was 49, glucose 116. His lactic acid had been checked on admission and it was 1.3, went down to 1.0, and then 0.9. His CRP had been 7.9, then up to 10.9, it was down to 6.7 by 07/19/2019. His proBNP was 898 on admission, it had improved to 523 by 07/19. The patient had no evidence of any choking or aspiration while he was here. Respiratory therapy was going to try to induce a sputum sample for him. Blood cultures were negative while he was here. He was switched from IV Rocephin to Ceftin. The patient was placed on Lovenox for DVT prophylaxis. He was felt to be back to his baseline by 07/19/2019. MEDICATIONS AT THE TIME OF DISCHARGE: Senna Plus 2 tablets 3 times a day, MiraLAX 17 g b.i.d., Risperdal 0.5 mg b.i.d., metoprolol 25 mg tablet half a pill twice a day, omeprazole 20 mg 1 pill daily, dulcolax 5 mg as needed for constipation daily, Tylenol 325 two pills every 4 hours as needed, furosemide 40 mg 1 pill daily, Cavilon foot and dry skin cream apply twice a day, Ceftin 250 mg 1 pill twice a day for 5 more days, guaifenesin 600 mg 1 pill twice a day for 5 days and then we will stop. The patient will need to be sent home on oxygen to keep his sats above 90%. The patient's code level status was do not resuscitate/do not intubate. I do anticipate the patient may have recurrent problems due to his continued progressive dementia and being 83 and him most likely to have recurrence of same problems. GM07/19/2019 08:51:11 MODL: 07/19/2019 11:47:25 /[id number] TIM
== END 2019-07-19 13:38 | DRG 193 ==
LOC: VM.ED 10:13 → VM.MS 12:04
PROVIDERS: ADMIT Family Medicine; ATTEND Family Medicine
DX: J18.1 Lobar pneumonia, unspecified organism (principal); J96.91 Respiratory failure, unspecified with hypoxia; J47.0 Bronchiectasis with acute lower respiratory infection; H35.30 Unspecified macular degeneration; I48.91 Unspecified atrial fibrillation; J44.0 Chronic obstructive pulmonary disease with (acute) lower respiratory infection; N18.9 Chronic kidney disease, unspecified; J44.1 Chronic obstructive pulmonary disease with (acute) exacerbation; K59.00 Constipation, unspecified; I13.0 Hypertensive heart and chronic kidney disease with heart failure and stage 1 through stage 4 chronic kidney disease, or unspecified chronic kidney disease; I50.32 Chronic diastolic (congestive) heart failure; Z66 Do not resuscitate; Z98.49 Cataract extraction status, unspecified eye; E86.0 Dehydration; K59.09 Other constipation; R91.8 Other nonspecific abnormal finding of lung field; N18.3 Chronic kidney disease, stage 3 (moderate); G30.9 Alzheimer's disease, unspecified; F02.80 Dementia in other diseases classified elsewhere, unspecified severity, without behavioral disturbance, psychotic disturbance, mood disturbance, and anxiety; I48.0 Paroxysmal atrial fibrillation; E53.8 Deficiency of other specified B group vitamins; Z98.42 Cataract extraction status, left eye; Z98.41 Cataract extraction status, right eye; Z87.891 Personal history of nicotine dependence; Z79.899 Other long term (current) drug therapy
CPT/HCPCS: 36415; 71045; 71260; 80048; 80053; 81001; 83605; 83880; 85007; 85025; 85027; 86140; 87040; 93005; 94640; 94760; 99284-GF; 99285-25; A9270-GY; J0696; J1650; J7120; J7620-GY; Q9967

== ENCOUNTER 2019-12-20 07:18 | Inpatient (IN) | payer MEDICARE, MEDICAID ==
[2019-12-20] MEDS ORDERED: cefTRIAXone 1 GM Vial IVPUSH ONE (07:38)
[2019-12-20] MEDS ORDERED: Sodium Chloride 0.9% 500 ML IV ONE (07:38)
--- NOTE | 2019-12-20 07:45 | EDM.PDOC ---
ED HPI GENERAL MEDICAL PROBLEM - General Chief Complaint: General Stated Complaint: RESPIRATORY Time Seen by Provider: 12/20/19 07:30 Source of Information: Reports: EMS, Correction Records History Limitations: Reports: Altered Mental Status - History of Present Illness INITIAL COMMENTS - FREE TEXT/NARRATIVE: Patient brought in this morning from the [facility] with decreased O2 saturation decreased level of consciousness patient states was seen about 3:00 this morning when he got a breathing treatment and it was rechecked and noticed to be in respiratory distress and decreased responsiveness. EMS upon arrival O2 sat of 85% was on 2 L/min nasal cannula he was transported to the ER he was nonverbal not following any commands during transportation. PT has a longstanding history of respiratory issues with last time admitted due to respiratory distress and with suspected aspiration pneumonia Onset: Sudden Duration: Hour(s): Associated Symptoms: Reports: Shortness of Breath - Related Data Allergies Allergy/AdvReac Type Severity Reaction Status Date / Time No Known Allergies Allergy Verified 07/15/19 10:54 Home Meds: Home Meds Metoprolol Tartrate 12.5 mg PO BID 12/16/17 [History] Sennosides/Docusate Sodium [Senna Plus Tablet] 2 tab PO TID 12/16/17 [History] polyethylene glycoL 3350 [MiraLAX] 17 gm PO BID 12/16/17 [History] risperiDONE [Risperdal] 0.25 mg PO DAILY 12/16/17 [History] Omeprazole 20 mg PO ACBREAKFAST 01/18/19 [History] bisacodyL [Dulcolax] 5 mg PO ASDIRECTED PRN 01/18/19 [History] Furosemide [Lasix] 40 mg PO DAILY #30 tab 01/22/19 [Rx] Albuterol/Ipratropium [DuoNeb 3.0-0.5 MG/3 ML] 3 ml IH Q4H PRN 12/20/19 [History ] risperiDONE 0.5 mg PO DAILY 12/20/19 [History] Past Medical History HEENT History: Reports: Cataract, Macular Degeneration Cardiovascular History: Reports: Afib, Heart Failure, Hypertension, Other (See Below) Other Cardiovascular History: edema Respiratory History: Reports: COPD Gastrointestinal History: Reports: Chronic Constipation Genitourinary History: Reports: Chronic Renal Insuffiency Neurological History: Reports: Alzheimers Disease, Other (See Below) Other Neuro History: dementia Psychiatric History: Reports: Alzheimers Disease, Dementia Endocrine/Metabolic History: Reports: Other (See Below) Other Endocrine/Metabolic History: lymphedema Hematologic History: Reports: B12 Deficiency - Past Surgical History HEENT Surgical History: Reports: Cataract Surgery Social & Family History - Family History Family Medical History: Noncontributory ED ROS GENERAL - Review of Systems Review Of Systems: Unable To Obtain (Patient is nonverbal and nonresponsive to any commands some review of systems was obtained from [facility] records) Constitutional: Reports: Fever Respiratory: Reports: Shortness of Breath, Wheezing, Cough Cardiovascular: Reports: No Symptoms Endocrine: Reports: No Symptoms GI/Abdominal: Reports: No Symptoms : Reports: No Symptoms Musculoskeletal: Reports: No Symptoms Skin: Reports: No Symptoms Neurological: Reports: Other (Decreased level of consciousness) Psychiatric: Reports: No Symptoms Hematologic/Lymphatic: Reports: No Symptoms Immunologic: Reports: No Symptoms (PT CODE STATUS 2) ED EXAM, GENERAL - Physical Exam Exam Limited By: Other (Nonresponsive GCS approximately 9) General Appearance: WD/WN, Moderate Distress, Other (Patient tachycardic respiratory rate 46 normotensive blood pressure sat 92% on nonrebreather). No: Alert, No Apparent Distress Eye Exam: Bilateral Eye: PERRL Ears: Normal External Exam, Normal Canal, Normal TMs Nose: Normal Inspection, Normal Mucosa, No Blood, Other Throat/Mouth: Normal Inspection, Normal Gums, Normal Oropharynx, No Airway Compromise, Other (Patient has dry mucous membranes had to pry open lips which were dry to examine the oropharynx and the tongue which was dry patent airway). No: Normal Lips, Normal Voice Neck: Normal Inspection, Supple, Non-Tender. No: Full Range of Motion (Patient had a negative Kernig's) Respiratory/Chest: Respiratory Distress, Crackles, Rhonchi, Accessory Muscle Use , Retractions. No: No Respiratory Distress Cardiovascular: Normal Peripheral Pulses, Regular Rate, Rhythm, No Edema, No Gallop, No JVD, No Murmur, Tachycardia GI/Abdominal: Normal Bowel Sounds, Soft, Non-Tender, No Organomegaly, No Distention, Other (Abdomen is soft and nontender no grimace could be elicited with palpation). No: Guarding, Rigid, Rebound Extremities: Normal Inspection, No Pedal Edema, Normal Capillary Refill (There is no petechiae or ecchymosis noted throughout the extremities) Neurological: No: Alert, Oriented, CN II-XII Intact Skin Exam: Warm, Dry, Intact, Normal Color, No Rash Course - Vital Signs Text/Narrative:: CBC BMP chest x-ray lactic acid EKG blood culture x2 patient was given a 500 mL normal saline bolus prophylactic 1 g Rocephin IV Montoya catheter with UA checked WBC 19,000 with a 94.9 neutrophil count negative bands influenza negative Sodium 146 BUN/creatinine 63/1.6 lactic 1.7 Chest x-ray no acute findings Spoke with Dr. Bone will admit the patient at 0 [phone] Diagnosis #1 sepsis 2 respiratory distress 3 hyponatremia 4 acute renal insufficiency Last Recorded V/S: Last Vital Signs Temp Pulse Resp BP Pulse Ox 96 12/20/19 08:02 - Orders/Labs/Meds Orders: Active Orders 24 hr Category Date Time Status EKG Documentation Completion [RC] STAT Care 12/20/19 07:19 Active Oxygen Therapy [RC] ASDIRECTED Care 12/20/19 08:02 Active RT Aerosol Therapy [RC] ASDIRECTED Care 12/20/19 08:42 Active RT BiPAP/CPAP [RC] ASDIRECTED Care 12/20/19 07:52 Active Urinary Catheter Assessment [RC] ASDIRECTED Care 12/20/19 08:38 Active Urinary Catheter Insertion [Insert Urinary Catheter] [ Care 12/20/19 08:25 Ordered OM.PC] Q24H CULTURE BLOOD [BC] Stat Lab 12/20/19 07:32 Received CULTURE BLOOD [BC] Stat Lab 12/20/19 07:39 Received Sodium Chloride 0.9% [Saline Flush] Med 12/20/19 07:19 Active 10 ml FLUSH ASDIRECTED PRN Blood Culture x2 Reflex Set [OM.PC] Stat Oth 12/20/19 07:19 Ordered Saline Lock Insert [OM.PC] Routine Oth 12/20/19 07:19 Ordered Medication Orders Acetaminophen (Tylenol) 650 mg PO Q4H PRN PRN Reason: Pain (Mild 1-3)/fever Albuterol/Ipratropium (Duoneb 3.0-0.5 Mg/3 Ml) 3 ml NEB Q4H GERONIMO Bisacodyl (Dulcolax) 5 mg PO ASDIRECTED PRN PRN Reason: Constipation Ceftriaxone Sodium (Rocephin) 1 gm IVPUSH DAILY [facility] Enoxaparin Sodium (Lovenox) 30 mg SUBCUT DAILY [facility] Furosemide (Lasix) 40 mg PO DAILY [facility] Dextrose/Sodium Chloride (Dextrose 5%-Normal Saline) 1,000 mls @ 150 mls/hr IV ASDIRECTED GERONIMO Methylprednisolone Sodium Succinate (Solu-Medrol) 125 mg IVPUSH Q8H [facility] Metoprolol Tartrate (Lopressor) 12.5 mg PO BID [facility] Non-Formulary Medication (Risperidone [Risperdal]) 0.25 mg PO DAILY GERONIMO Non-Formulary Medication (Risperidone [Risperidone]) 0.5 mg PO DAILY [facility] Omeprazole (Omeprazole) 20 mg PO ACBREAKFAST [facility] Ondansetron HCl (Zofran) 4 mg IVPUSH Q6H PRN PRN Reason: Nausea Polyethylene Glycol (Miralax) 17 gm PO BID [facility] Senna/Docusate Sodium (Senna Plus) 2 tab PO TID [facility] Sodium Chloride (Saline Flush) 10 ml FLUSH ASDIRECTED PRN PRN Reason: Keep Vein Open Labs: Laboratory Tests 12/20/19 12/20/19 12/20/19 Range/Units 07:39 07:39 07:39 WBC 19.0 H (4.0-10.0) x10^3/uL RBC 5.13 (4.5-6.0) x10^6/uL Hgb 14.2 D (14.0-18.0) g/dL Hct 45.3 (40.0-52.0) % MCV 88.3 (78.0-93.0) fL MCH 27.7 (26.0-32.0) pg MCHC 31.3 L (32.0-36.0) g/dL RDW Coeff of Roberto 14.5 (10.0-15.0) % Plt Count 241 (130-400) x10^3/uL Neut % (Auto) 94.9 H (50.0-80.0) % Lymph % (Auto) 1.8 L (25.0-50.0) % [place] % (Auto) 3.1 (2.0-11.0) % Eos % (Auto) 0.1 (0.0-4.0) % Baso % (Auto) 0.1 L (0.2-1.2) % Sodium 146 H (136-145) mmol/L Potassium 4.3 (3.5-5.1) mmol/L Chloride 108 H (98-107) mmol/L Carbon Dioxide 23 (21-32) mmol/L Anion Gap 19.3 (10-20) mmol/L BUN 63 H D (7-18) mg/dL Creatinine 1.6 H (0.70-1.30) mg/dL Est Cr Clr Drug Dosing TNP Estimated GFR (MDRD) 42 Glucose 198 H (74-106) mg/dL Lactic Acid 1.7 (0.4-2.0) mmol/L Calcium 8.5 (8.5-10.1) mg/dL Urine Color (YELLOW) Urine Appearance (CLEAR) Urine pH (5.0-8.0) Ur Specific [place] Urine Protein (NEGATIVE) mg/dL Urine Glucose (UA) (NEGATIVE) mg/dL Urine Ketones (NEGATIVE) mg/dL Urine Occult Blood (NEGATIVE) Urine Nitrite (NEGATIVE) Urine Bilirubin (NEGATIVE) Urine Urobilinogen (0.2) EU/dL Ur Leukocyte Esterase (NEGATIVE) Urine RBC (NOT SEEN) /HPF Urine WBC (NOT SEEN) /HPF Ur Squamous Epith Cells (NEGATIVE) /HPF Amorphous Sediment Urine Bacteria (NEGATIVE) /HPF Urine Mucus (NEGATIVE) /LPF 12/20/19 Range/Units 08:29 WBC (4.0-10.0) x10^3/uL RBC (4.5-6.0) x10^6/uL Hgb (14.0-18.0) g/dL Hct (40.0-52.0) % MCV (78.0-93.0) fL MCH (26.0-32.0) pg MCHC (32.0-36.0) g/dL RDW Coeff of Roberto (10.0-15.0) % Plt Count (130-400) x10^3/uL Neut % (Auto) (50.0-80.0) % Lymph % (Auto) (25.0-50.0) % [place] % (Auto) (2.0-11.0) % Eos % (Auto) (0.0-4.0) % Baso % (Auto) (0.2-1.2) % Sodium (136-145) mmol/L Potassium (3.5-5.1) mmol/L Chloride (98-107) mmol/L Carbon Dioxide (21-32) mmol/L Anion Gap (10-20) mmol/L BUN (7-18) mg/dL Creatinine (0.70-1.30) mg/dL Est Cr Clr Drug Dosing Estimated GFR (MDRD) Glucose (74-106) mg/dL Lactic Acid (0.4-2.0) mmol/L Calcium (8.5-10.1) mg/dL Urine Color Yellow (YELLOW) Urine Appearance Clear (CLEAR) Urine pH 5.0 (5.0-8.0) Ur Specific [place] 1.025 Urine Protein Negative (NEGATIVE) mg/dL Urine Glucose (UA) Negative (NEGATIVE) mg/dL Urine Ketones Negative (NEGATIVE) mg/dL Urine Occult Blood Negative (NEGATIVE) Urine Nitrite Negative (NEGATIVE) Urine Bilirubin Negative (NEGATIVE) Urine Urobilinogen 0.2 (0.2) EU/dL Ur Leukocyte Esterase Negative (NEGATIVE) Urine RBC 0-5 (NOT SEEN) /HPF Urine WBC Not seen (NOT SEEN) /HPF Ur Squamous Epith Cells Rare (NEGATIVE) /HPF Amorphous Sediment Rare Urine Bacteria Not seen (NEGATIVE) /HPF Urine Mucus Few H (NEGATIVE) /LPF Meds: Medications Generic Name Dose Route Start Last Admin Trade Name Hiteshq PRN Reason Stop Dose Admin Acetaminophen 650 mg 12/20/19 09:18 Tylenol PO Q4H PRN Pain (Mild 1-3)/fever Albuterol/Ipratropium 3 ml 12/20/19 09:15 Duoneb 3.0-0.5 Mg/3 Ml NEB Q4H GERONIMO Bisacodyl 5 mg 12/20/19 09:15 Dulcolax PO ASDIRECTED PRN Constipation Ceftriaxone Sodium 1 gm 12/21/19 08:00 Rocephin IVPUSH DAILY GERONIMO Enoxaparin Sodium 30 mg 12/20/19 09:30 Lovenox SUBCUT DAILY GERONIMO Furosemide 40 mg 12/20/19 09:15 Lasix PO DAILY GERONIMO Dextrose/Sodium Chloride 1,000 mls @ 150 mls/hr 12/20/19 09:15 Dextrose 5%-Normal Saline IV ASDIRECTED GERONIMO Methylprednisolone Sodium Succinate 125 mg 12/20/19 09:30 Solu-Medrol IVPUSH Q8H GERONIMO Metoprolol Tartrate 12.5 mg 12/20/19 09:30 Lopressor PO BID GERONIMO Non-Formulary Medication 0.25 mg 12/20/19 09:15 Risperidone [Risperdal] PO DAILY GERONIMO Non-Formulary Medication 0.5 mg 12/20/19 09:30 Risperidone [Risperidone] PO DAILY GERONIMO Omeprazole 20 mg 12/21/19 07:00 Omeprazole PO ACBREAKFAST GERONIMO Ondansetron HCl 4 mg 12/20/19 09:12 Zofran IVPUSH Q6H PRN Nausea Polyethylene Glycol 17 gm 12/20/19 20:00 Miralax PO BID GERONIMO Senna/Docusate Sodium 2 tab 12/20/19 12:00 Senna Plus PO TID GERONIMO Sodium Chloride 10 ml 12/20/19 07:19 Saline Flush FLUSH ASDIRECTED PRN Keep Vein Open Discontinued Medications Generic Name Dose Route Start Last Admin Trade Name Freq PRN Reason Stop Dose Admin Ceftriaxone Sodium 1 gm 12/20/19 07:38 12/20/19 08:13 Rocephin IVPUSH 12/20/19 07:39 1 gm STAT ONE Administration Sodium Chloride 500 mls @ 500 mls/hr 12/20/19 07:38 12/20/19 08:14 Normal Saline IV 12/20/19 08:37 500 mls/hr ONETIME ONE Administration Levalbuterol HCl 1.25 mg 12/20/19 08:41 12/20/19 08:49 Xopenex NEB 12/20/19 08:42 1.25 mg ONETIME ONE Administration Ondansetron HCl 8 mg 12/20/19 08:44 12/20/19 08:56 Zofran IVPUSH 12/20/19 08:45 8 mg ONETIME ONE Administration Departure - Departure Time of Disposition: 08:45 Disposition: Admitted As Inpatient 68 Condition: Poor Clinical Impression: Sepsis, Acute renal insufficiency, Hypernatremia, Respiratory distress, Hypoxemia - Discharge Information *PRESCRIPTION DRUG MONITORING PROGRAM REVIEWED*: No *COPY OF PRESCRIPTION DRUG MONITORING REPORT IN PATIENT ARCHANA: No Sepsis Event Note - Focused Exam Vital Signs: Vital Signs Pulse Ox 12/20/19 08:02 96 Date Exam was Performed: 12/20/19 Time Exam was Performed: 09:33 - Problem List & Annotations (1) Acute renal insufficiency SNOMED Code(s): 983731340 Code(s): N28.9 - DISORDER OF KIDNEY AND URETER, UNSPECIFIED Status: Acute Current Visit: Yes (2) Hypernatremia SNOMED Code(s): 508350965 Code(s): E87.0 - HYPEROSMOLALITY AND HYPERNATREMIA Status: Acute Current Visit: Yes (3) Hypoxemia SNOMED Code(s): 078411153 Code(s): R09.02 - HYPOXEMIA Status: Acute Current Visit: Yes (4) Respiratory distress SNOMED Code(s): 639922475 Code(s): R06.03 - ACUTE RESPIRATORY DISTRESS Status: Acute Current Visit : Yes (5) Sepsis SNOMED Code(s): 68967051 Code(s): A41.9 - SEPSIS, UNSPECIFIED ORGANISM Status: Acute Current Visit : Yes - My Orders Last 24 Hours: My Active Orders 12/20/19 07:19 EKG Documentation Completion [RC] STAT Sodium Chloride 0.9% [Saline Flush] 10 ml FLUSH ASDIRECTED PRN Blood Culture x2 Reflex Set [OM.PC] Stat Saline Lock Insert [OM.PC] Routine 12/20/19 07:32 CULTURE BLOOD [BC] Stat 12/20/19 07:39 CULTURE BLOOD [BC] Stat 12/20/19 07:52 RT BiPAP/CPAP [RC] ASDIRECTED 12/20/19 08:02 Oxygen Therapy [RC] ASDIRECTED 12/20/19 08:25 Urinary Catheter Insertion [Insert Urinary Catheter] [OM.PC] Q24H 12/20/19 08:38 Urinary Catheter Assessment [RC] ASDIRECTED 12/20/19 08:42 RT Aerosol Therapy [RC] ASDIRECTED - Assessment/Plan Last 24 Hours: My Active Orders 12/20/19 07:19 EKG Documentation Completion [RC] STAT Sodium Chloride 0.9% [Saline Flush] 10 ml FLUSH ASDIRECTED PRN Blood Culture x2 Reflex Set [OM.PC] Stat Saline Lock Insert [OM.PC] Routine 12/20/19 07:32 CULTURE BLOOD [BC] Stat 12/20/19 07:39 CULTURE BLOOD [BC] Stat 12/20/19 07:52 RT BiPAP/CPAP [RC] ASDIRECTED 12/20/19 08:02 Oxygen Therapy [RC] ASDIRECTED 12/20/19 08:25 Urinary Catheter Insertion [Insert Urinary Catheter] [OM.PC] Q24H 12/20/19 08:38 Urinary Catheter Assessment [RC] ASDIRECTED 12/20/19 08:42 RT Aerosol Therapy [RC] ASDIRECTED
[2019-12-20 08:01] LABS: CHLORIDE,CL 108 mmol/L (98-107); SODIUM,NA 146 mmol/L (136-145)
[2019-12-20 08:02] LABS: ANION GAP 19.3 mmol/L (10-20)
--- NOTE | 2019-12-20 08:20 | CR ---
[id number] RAD/RAD Chest PA or AP 1V EXAM: SINGLE VIEW CHEST. INDICATION: SHORTNESS OF BREATH COMPARISON: CORRELATION IS MADE WITH THE CAT SCAN OF 2018 FINDINGS: The lungs are clear The cardiac silhouette is stable There are old rib fractures IMPRESSION: NO PNEUMONIA OR EDEMA José Prasad MD 12/20/19 0819 Thank you for allowing us to participate in the care of your patient.
[2019-12-20] MEDS ORDERED: Levalbuterol HCl 1.25 MG/0.5 ML Neb NEB ONE (08:41)
[2019-12-20] MEDS ORDERED: Ondansetron 4 MG/2 ML SDV IVPUSH ONE (08:44)
[2019-12-20] MEDS ORDERED: Ondansetron 4 MG/2 ML SDV IVPUSH PRN (09:12)
[2019-12-20] MEDS ORDERED: Bisacodyl 5 MG Tab PO PRN (09:15)
[2019-12-20] MEDS ORDERED: Acetaminophen 325 MG Tab PO PRN (09:18)
[2019-12-20] MEDS: methylPREDNISolone Sodium Succinate 125 MG/2 ML SDV IVPUSH SCH ×2 (09:51→17:39)
[2019-12-20] MEDS: Dextrose 5%-0.9% NaCl 1,000 ML IV SCH ×2 (09:52→18:20)
[2019-12-20] MEDS: Metoprolol Tartrate 25 MG Tab PO SCH ×2 (10:58→19:54)
[2019-12-20] MEDS: Furosemide 40 MG Tab PO SCH (10:58)
[2019-12-20] MEDS: risperiDONE 0.25 MG Tab PO SCH ×2 (11:01→19:53)
[2019-12-20] MEDS: Albuterol/Ipratropium 3.0-0.5 MG/3 ML Neb Soln NEB SCH ×4 (11:17→23:30)
[2019-12-20] MEDS: Enoxaparin 30 MG/0.3 ML Syringe SUBCUT SCH (11:55)
[2019-12-20] MEDS: Ampicillin/Sulbactam Na 3 GM in Sodium Chloride 0.9% 100 ML IV SCH ×2 (11:55→19:44)
--- NOTE | 2019-12-20 15:29 | HP ---
CHIEF COMPLAINT: Respiratory distress. HISTORY OF PRESENT ILLNESS: Patient is an 84-year-old resident of [facility], who was noted to have reduced saturation with coughing and fever this morning at the senior care. He was given a neb and did not improve. He had to be given supplemental oxygen as his saturations had been down to 88%. When he arrived at the emergency room, his saturations were up to about 90% on 10L. He was breathing rapidly. He has had a remote history of aspiration pneumonia, he was last hospitalized in 06/2019, he has been doing fine since then. Actually, he was seen by myself on rounds on 12/18/2019 and he was actually more alert, his psychiatry had reduced his medications for behavior. He is nonverbal and not able to give any history. The patient in the emergency room had a BiPAP placed to get his saturations above 95% with 50% FiO2. His pulse was elevated into the 120s. He was febrile. He was having rigors and shakes. He had had some emesis in his mask. To note, there has been some acute gastroenteritis going around the senior care as well as influenza as well. ALLERGIES: None known. MEDICATIONS: His current medication list: 1. Dulcolax 5 mg daily as needed for constipation. 2. Furosemide 40 mg 1 pill a day. 3. DuoNebs every 4 hours p.r.n. 4. He is on metoprolol tartrate 12.5 mg 1 pill twice a day. 5. MiraLAX powder 17 g by mouth daily. 6. 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 7. Risperdal 0.5 mg, he gets 0.25 mg by mouth one time a day and 0.5 mg by mouth once a day. 8. Senna plus 2 tablets 3 times a day. PAST MEDICAL HISTORY: 1. Alzheimer's dementia. 2. He has chronic kidney disease, stage 3. 3. He has had chronic anemia. 4. He has had acute diastolic heart failure. 5. He has had adenomatous colon polyp in 2014. 6. Hypertension. 7. Paroxysmal atrial fibrillation. 8. 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 9. He has had decubitus ulcers. 10.Vitamin B12 deficiency. 11.He has had blood transfusions. 12.History of substance abuse. PAST SURGICAL HISTORY: 1. He has had cataract surgery both eyes. 2. Colonoscopy with polyps. 3. Hernia repair. 4. EGD on 05/13/2015. SOCIAL HISTORY: He is single. Quit smoking over 20 years ago. He used to use alcohol in the past. He lives by the name of Damon. He has had dementia since 2011, he had been hospitalized at [place]. Poor historian. He has had behavior problems, has had to stay at hospital until 11/2017. He has been at [facility] since. FAMILY HISTORY: Not obtainable. REVIEW OF SYSTEMS: He is not able to give due to dementia. He is followed by Psychiatry, Dr. Alvarez. PHYSICAL EXAMINATION: Vital Signs: His pulse is 123, his temperature is 97, his respiratory rate was initially 40, improved down to 32. Skin: Diaphoretic and warm. HEENT: His eyes are open. Mucous membranes are somewhat dry. Neck: No anterior cervical adenopathy. Heart: Regular rate and rhythm. Lungs: Have some coarse inspiratory respirations bilaterally. No wheezes noted. Abdomen: Soft and nontender. Lower Extremities: No edema. Neurologic: He does not speak. He cannot follow commands. He is alert. LABORATORY DATA: Shows influenza A and B testing was negative. His white blood cell count 19.0, hemoglobin 14.2, platelets 241, with 94 segs, 1.8 lymphocytes. Sodium 146, potassium 4.3, creatinine 1.6, GFR is 42, glucose 198, lactic acid 1.7, calcium 8.5. Urinalysis came back normal with no signs of infection. Chest x-ray was done, which was read out as no acute signs of pneumonia. EKG showed sinus tach with nonspecific ST changes. IMPRESSION: 1. Aspiration pneumonia. 2. Respiratory distress secondary to #1. 3. Sinus tachycardia. 4. Dehydration. 5. Alzheimer's dementia. 6. Chronic kidney disease with acute kidney injury. 7. History of B12 deficiency. PLAN: The patient will be admitted to acute care. His code level, do-not resuscitate/do-not intubate. He is on BiPAP right now. We will check blood gases when he has his next blood draw. Repeat serial lactic acid levels. We will give IV support for hydration. We will continue Montoya catheter to see about intake and output on patient as we will be monitoring this. Patient's status right now is guarded and he may of his current health problems. Family members were not present and we will have nursing staff update family about his status. He is admitted to my care as he is my patient. He did have previous speech evaluation, but will order again. He gertrude be placed on lovenox for DVT prevention. GM12/20/2019 09:30:40 MODL: 12/20/2019 15:19:50 /[id number] TIM
[2019-12-21] MEDS: methylPREDNISolone Sodium Succinate 125 MG/2 ML SDV IVPUSH SCH (00:47)
[2019-12-21] MEDS: Sodium Chloride 0.9% 10 ML Syringe FLUSH PRN ×2 (00:47→00:48)
[2019-12-21] MEDS: Ampicillin/Sulbactam Na 3 GM in Sodium Chloride 0.9% 100 ML IV SCH ×3 (04:12→19:37)
[2019-12-21] MEDS: Albuterol/Ipratropium 3.0-0.5 MG/3 ML Neb Soln NEB SCH ×6 (04:12→22:22)
[2019-12-21] MEDS: Omeprazole 20 MG Cap.CR PO SCH ×2 (05:42→06:08)
[2019-12-21] MEDS: Dextrose 5%-0.9% NaCl 1,000 ML IV SCH (05:49)
[2019-12-21] MEDS ORDERED: cefTRIAXone 1 GM Vial IVPUSH SCH (08:00)
[2019-12-21 08:24] LABS: ANION GAP 17.1 mmol/L (10-20)
[2019-12-21] MEDS ORDERED: methylPREDNISolone Sodium Succinate 125 MG/2 ML SDV IVPUSH SCH (08:36)
[2019-12-21] MEDS: Enoxaparin 30 MG/0.3 ML Syringe SUBCUT SCH (08:40)
[2019-12-21] MEDS: risperiDONE 0.25 MG Tab PO SCH ×2 (08:41→19:40)
[2019-12-21] MEDS: Polyethylene Glycol 3350 Powder 17 GM Packet PO SCH (08:41)
[2019-12-21] MEDS: Furosemide 40 MG Tab PO SCH (08:41)
[2019-12-21] MEDS: Metoprolol Tartrate 25 MG Tab PO SCH ×2 (08:41→19:41)
[2019-12-21] MEDS ORDERED: Sodium Chloride 0.45% 1,000 ML IV SCH (08:45)
[2019-12-21] MEDS: methylPREDNISolone Sodium Succinate 40 MG/1 ML SDV IVPUSH SCH ×2 (08:56→22:00)
--- NOTE | 2019-12-21 09:14 | PN ---
Progress Note for MALI LOVE Date: 12/21/2019 Room #: VM.215 SUBJECTIVE: The patient's hospital day #1. He was admitted yesterday with respiratory distress with aspiration pneumonia. His sats were noted to be quite low. He had been having some vomiting. He did have BiPAP on throughout the day, but last evening, he was able to be weaned off to just nasal cannula and he is more alert today and no concerns noted by nursing staff. OBJECTIVE: Vital Signs: His temperature is 36.6, weight has not been obtained yet today, pulse is 85, blood pressure is up to 156/68, respiratory rate is 24, sats are 93% on 1 L. General: He is alert. He is slightly diaphoretic and flushed. Heart: Regular rate and rhythm. Lungs: Diminished breath sounds bilaterally. He is hard to cooperate with the lung exam. Neurologic: He only speaks one word. He is confused, demented. LABORATORY DATA: Shows that his blood cultures were negative. Sputum was negative for influenza. His white blood cell count has improved to 10.8, hemoglobin has dropped to 10.8, with platelets 193; 93% segs, 4 bands. Sodium is up to 150, potassium 4.1, creatinine is slightly elevated at 1.7, GFR is 49, glucose is up to 180. Lactic acid from admission went from 1.7 up to 4.0. His CRP last evening was elevated at 4.4. Troponin was normal at 0.026. Vitamin B12 level was checked at 584. ProBNP was 611. Chest x-ray is pending yet today. Urinalysis is negative. IMPRESSION: 1. Aspiration pneumonia. 2. Respiratory distress, improving. 3. Hypernatremia. 4. Alzheimer's dementia. 5. Sinus tachycardia, improved. PLAN: We will switch the patient's IV fluids to half-normal saline, but we will reduce the amount. We will cut down on his IV steroids. We will continue the Zosyn antibiotic. We will do a chest x-ray today. He does not need to have telemetry on anymore and I did put in a speech consult, which will be done hopefully on Monday. GM12/21/2019 08:42:00 MODL: 12/21/2019 09:09:00 /[id number]
--- NOTE | 2019-12-21 11:41 | CR ---
[id number] RAD/RAD Chest PA or AP 1V EXAM: RAD Chest PA or AP 1V INDICATION: PNEUMONIA ASPIRATION, RESPIRATORY DISTRESS. COMPARISON: December 20, 2019 DISCUSSION: Cardiomediastinal silhouette is stable in size and contour. No infiltrate, effusion, pneumothorax, or edema. The lung volumes associated vascular crowding. Bibasilar subsegmental atelectasis and/or scarring. IMPRESSION: Stable chest. Lorne Chino DO 12/21/19 1140 Thank you for allowing us to participate in the care of your patient.
[2019-12-21] MEDS: Insulin Regular, Human 100 Units/ML 3 ML Vial SUBCUT SCH ×2 (12:24→17:44)
[2019-12-22] MEDS: Albuterol/Ipratropium 3.0-0.5 MG/3 ML Neb Soln NEB SCH ×5 (03:30→21:39)
[2019-12-22] MEDS: Ampicillin/Sulbactam Na 3 GM in Sodium Chloride 0.9% 100 ML IV SCH ×3 (04:03→21:59)
[2019-12-22] MEDS: Omeprazole 20 MG Cap.CR PO SCH (06:08)
[2019-12-22 08:00] LABS: ANION GAP 16.2 mmol/L (10-20)
[2019-12-22] MEDS: Enoxaparin 30 MG/0.3 ML Syringe SUBCUT SCH (08:23)
[2019-12-22] MEDS: Furosemide 40 MG Tab PO SCH (08:24)
[2019-12-22] MEDS: Polyethylene Glycol 3350 Powder 17 GM Packet PO SCH (08:25)
[2019-12-22] MEDS: Metoprolol Tartrate 25 MG Tab PO SCH ×2 (08:25→21:44)
[2019-12-22] MEDS: risperiDONE 0.25 MG Tab PO SCH ×2 (08:26→21:45)
[2019-12-22] MEDS: predniSONE 20 MG Tab PO SCH (08:26)
--- NOTE | 2019-12-22 08:41 | PN ---
Progress Note for MALI LOVE Date: 12/22/2019 Room #: VM.215 SUBJECTIVE: The patient was noted to have a fever yesterday morning, but no other ill effects were noted. He otherwise has continued to get more alert, and no concerns have been noted by nursing staff. OBJECTIVE: Vital Signs: Today, his temperature is 36.4, pulse is 107, blood pressure is 112/54, respiratory rate is 19, and saturations are 96% on 2 L. General: The patient is more alert. He does smile. He will say a word. Heart: Shows regular rate. Lungs: Diminished breath sounds on bases. Abdomen: Soft. Genitourinary: Urine is clear yellow. LABORATORY DATA: Lab is pending at this morning. Yesterday, his chest x-ray was still read as being normal. Urinalysis on admission came back normal. IMPRESSION: 1. Aspiration pneumonia. 2. Dehydration, improved. 3. Hypoxemia, greatly improved. 4. Alzheimer's dementia. 5. Chronic kidney disease. 6. Chronic anemia. PLAN: We will await lab work today. We will stop his Montoya catheter. We will saline lock his fluids once his current bag is in. We will stop his IV steroids, and we will place him on some oral steroids, which will be short term, and anticipate possible transfer back to [facility] tomorrow. To note, his blood sugars also have been greatly improved, so we will also stop using a sliding scale insulin for him as well. GM12/22/2019 07:40:13 MODL: 12/22/2019 08:33:18 /[id number]
[2019-12-23] MEDS: Albuterol/Ipratropium 3.0-0.5 MG/3 ML Neb Soln NEB SCH ×4 (01:19→11:40)
[2019-12-23] MEDS: Ampicillin/Sulbactam Na 3 GM in Sodium Chloride 0.9% 100 ML IV SCH (03:30)
[2019-12-23] MEDS: Omeprazole 20 MG Cap.CR PO SCH (06:47)
[2019-12-23] MEDS: risperiDONE 0.25 MG Tab PO SCH (08:30)
[2019-12-23] MEDS: predniSONE 20 MG Tab PO SCH (08:30)
[2019-12-23] MEDS: Furosemide 40 MG Tab PO SCH (08:30)
[2019-12-23] MEDS: Enoxaparin 30 MG/0.3 ML Syringe SUBCUT SCH (08:30)
[2019-12-23] MEDS: Metoprolol Tartrate 25 MG Tab PO SCH (08:30)
[2019-12-23] MEDS: Polyethylene Glycol 3350 Powder 17 GM Packet PO SCH (08:31)
--- NOTE | 2019-12-23 09:47 | PN ---
Progress Note for MALI LOVE Date: 12/23/2019 Room #: VM.215 SUBJECTIVE: The patient is more alert. He has not had further respiratory distress. He tolerated getting his Montoya removed yesterday. He did have a pending swallowing study done today. OBJECTIVE: General: Temperature do, he is down to 35.1, pulse is 95, blood pressure is 139/72, respiratory rate is 95 on 2 L. Skin: Bowler, warm, and dry. Heart: Regular rate and rhythm. Lungs: Have diminished breath sounds on bases. Difficult to hear if crackles present as he cannot cooperate. Abdomen: Soft. LABORATORY DATA: His lab today shows that his white blood cell count improved to 8.1, hemoglobin 10.7, platelets 179. Sodium 148, potassium 4.0, creatinine stable at 1.4, GFR is 49, glucose is 86. IMPRESSION: 1. Aspiration pneumonia. 2. Hypoxemia related to aspiration pneumonia. 3. Exacerbation of congestive heart failure. 4. Alzheimer dementia. 5. Chronic anemia. PLAN: We will switch the patient to oral antibiotics now. We will await the swallowing study and will be able to send back to the custodial after swallowing study as he is felt to be back to his baseline other than he is needing supplemental oxygen. We will place him on DuoNeb scheduled for a week and then after that as needed. GM12/23/2019 08:35:17 MODL: 12/23/2019 09:42:14 /[id number]
[2019-12-23] MEDS ORDERED: Barium Sulfate 60% w/w Esophageal Crm 454 GM Tube ONE (10:20)
[2019-12-23] MEDS ORDERED: Barium Sulfate 98% Powder for Susp 340 GM Bottle ONE (10:20)
--- NOTE | 2019-12-23 16:13 | CR ---
[id number] RAD/RAD Video Swallow Study Exam: RAD Video Swallow Study Clinical Data: ASPIRATION PNEUMONIA COMPARISON: NO PREVIOUS SIMILAR EXAM IS AVAILABLE FINDINGS: Fluoroscopy was provided to the patient's speech therapist [facility] at the time of procedure IMPRESSION: VIDEO SWALLOW AT [facility] José Prasad MD 12/23/19 6242 Thank you for allowing us to participate in the care of your patient.
[2019-12-23] MEDS ORDERED: Amoxicillin/Clavulanate K 875-125 MG Tab PO SCH (20:00)
--- NOTE | 2019-12-24 09:47 | DISCH ---
PRIMARY DIAGNOSES: 1. Aspiration pneumonia. 2. Respiratory distress secondary to aspiration pneumonia. 3. Congestive heart failure exacerbation. 4. Alzheimer dementia. 5. Sinus tachycardia. 6. Dehydration, mild. 7. Chronic kidney disease with acute kidney injury. 8. History of B12 deficiency. SUMMARY OF H AND P: The patient is an 84-year-old resident of [facility], who had been having a cough and fever in the morning at the [facility]. He had been given a DuoNeb, was not improving, was requiring higher oxygen levels, and so was transferred to the emergency room. While at the emergency room, he had BiPAP placed on. His sats were down in the 80s. It went up to 95 with an FiO2 of 50%. Pulse was in the 120s. To note, he had a fever prior to transfer. Initial respiratory rate was 40, then did improve to 32. His testing in the emergency room showed influenza A and B were negative. White blood cell count 19, hemoglobin 14.2 with 94 segs, 1.8 lymphocytes. Sodium 146, potassium 4.3, creatinine 1.6, GFR 42, glucose 198, lactic acid 1.7. Chest x- ray showed no acute pneumonia. EKG showed sinus tach, nonspecific changes. SUMMARY OF HOSPITAL COURSE: The patient was admitted on acute care, placed on BiPAP. He was placed on Rocephin and Zithromax, but then switched to Unasyn because of concerns with pneumonia. Montoya catheter was placed for good I and O coverage. He did receive Lovenox for DVT prophylaxis. The patient did defervesce, but did have 1 temperature spike on I believe 12/21. Again, he was able to be weaned off the BiPAP and placed on nasal cannula. His heart rate did improve down to the 90s. Laboratory was monitored. His white blood cell count did improve. It was down to 8.1 by 12/23. His hemoglobin had dropped, but some of it was felt to be delusional. His hemoglobin on 12/23 was down at 10.7, was being stable. Sodium had gone up to 150. He had been given IV hydration, was switched to half-normal. Then, IV fluids were able to be stopped and his sodium was 148 by 12/23. Potassium was 4.0. His lactic acid had gone up to 4.0 by 12/20 and then had gradually improved and it was down to 2.5 on 12/22/2019. Magnesium level was checked, it was 2.2. Liver enzymes were normal. CRP was 4.4 on 12/20 and down to 4.1 by 12/22. ProBNP was 611, slightly elevated. Chest x-rays were followed and they always were normal. The patient was seen by Speech and had a video swallow eval on 12/23/2019, which apparently came back normal. The patient had been given IV Solu-Medrol to help improve oxygenation. His blood sugars were temporally high. It was followed by some sliding scale insulin, but then was placed on oral prednisone. The patient was felt to be back at his baseline on 12/23, except for needing a small amount of oxygen. MEDICATIONS: His medications at the time of discharge will be Senna Plus 2 pills 3 times a day, MiraLAX 17 g daily, Risperdal 0.25 mg in the morning, metoprolol tartrate 25 mg half pill twice a day, Prilosec 20 mg 1 pill daily, bisacodyl 5 mg suppository daily p.r.n., furosemide 40 mg 1 pill daily, Risperdal 0.5 mg at bedtime, Augmentin 875 one pill twice a day for 5 additional days, so will be a total of 7-day course of therapy, Tylenol 325 q.4 hours p.r.n., prednisone 20 mg daily for 5 days, DuoNebs to use 4 times a day as needed. Anticipate it will be used for the next week and then after that as needed. He can have oxygen as needed. DIET: Back to his usual [facility] diet. To note, his resuscitation status, do not resuscitate/do not intubate. I do anticipate the patient because of his profound dementia may have recurrences of his same health problems, but it was stated that speech swallow did not show any deficits that could be corrected. GM12/23/2019 12:51:45 MODL: 12/23/2019 21:33:07 /[id number] cc: [facility]
== END 2019-12-23 11:36 | disposition home or self-care (01) | DRG 177 ==
LOC: VM.ED 07:18 → VM.MS 09:05
PROVIDERS: ADMIT Family Medicine; ATTEND Family Medicine
PROC: 5A09357 Assistance with Respiratory Ventilation, Less than 24 Consecutive Hours, Continuous Positive Airway Pressure (ICD-10-PCS; principal; 2019-12-20)
DX: A41.9 Sepsis, unspecified organism (principal); J69.0 Pneumonitis due to inhalation of food and vomit; I50.33 Acute on chronic diastolic (congestive) heart failure; R06.03 Acute respiratory distress; R09.02 Hypoxemia; I13.0 Hypertensive heart and chronic kidney disease with heart failure and stage 1 through stage 4 chronic kidney disease, or unspecified chronic kidney disease; N17.9 Acute kidney failure, unspecified; E87.0 Hyperosmolality and hypernatremia; I50.9 Heart failure, unspecified; H35.30 Unspecified macular degeneration; Z66 Do not resuscitate; F02.80 Dementia in other diseases classified elsewhere, unspecified severity, without behavioral disturbance, psychotic disturbance, mood disturbance, and anxiety; G30.9 Alzheimer's disease, unspecified; E86.0 Dehydration; R00.0 Tachycardia, unspecified; E53.8 Deficiency of other specified B group vitamins; N18.9 Chronic kidney disease, unspecified; D64.9 Anemia, unspecified; I48.91 Unspecified atrial fibrillation; J44.9 Chronic obstructive pulmonary disease, unspecified; K59.09 Other constipation; I89.0 Lymphedema, not elsewhere classified; Z79.899 Other long term (current) drug therapy; Z98.41 Cataract extraction status, right eye; Z98.42 Cataract extraction status, left eye; Z98.890 Other specified postprocedural states; Z87.891 Personal history of nicotine dependence; Z98.49 Cataract extraction status, unspecified eye
CPT/HCPCS: 36415; 51702; 71045; 80048; 81001; 83605; 85025; 87040 ×2; 87804 ×2; 93005; 94640; 94660; 94760; 96361; 96374; 96375; 99285; J0696; J2405; J7040; 36600; 74230; 80053; 82607; 82803; 82962; 83735; 83880; 84484; 85007; 85027; 86140; 92526-GN; 92611-GN; A9270-GY; J0295; J1650; J2920; J2930; J7030; J7042; J7050; J7620-GY

== ENCOUNTER 2020-09-02 12:15 | Inpatient (IN) | payer MEDICARE, MEDICAID ==
[2020-09-02] MEDS ORDERED: Piperacillin/Tazobactam 3.375 GM in Sodium Chloride 0.9% 100 ML IV ONE (12:42)
--- NOTE | 2020-09-02 12:48 | CR ---
[id number] RAD/RAD Chest PA or AP 1V EXAM: RAD Chest PA or AP 1V INDICATION: HYPOXIA, ALTERED LOSS OF CONSCIOUSNESS. COMPARISON: December 21, 2019. DISCUSSION: Cardiomediastinal silhouette is stable in size and contour. Small to moderate right pleural effusion with associated compressive atelectasis. Right basilar infiltrate is not excluded. No pneumothorax. IMPRESSION: Small to moderate right pleural effusion with associated compressive atelectasis. Right basilar infiltrate is not excluded. Lorne Chino DO 09/02/20 1247 Thank you for allowing us to participate in the care of your patient.
[2020-09-02 13:04] LABS: PCO2 ARTERIAL,POC 39 mmHg (35-48)
--- NOTE | 2020-09-02 13:08 | EDM.PDOC ---
ED HPI GENERAL MEDICAL PROBLEM - General Stated Complaint: resp distress. Time Seen by Provider: 09/02/20 12:15 Source of Information: Reports: EMS, RN History Limitations: Reports: Altered Mental Status, Respiratory Distress - History of Present Illness INITIAL COMMENTS - FREE TEXT/NARRATIVE: Patient comes emergency department today by ambulance from the [facility] with concerns of decreased level of consciousness and respiratory distress. HPI is obtained from EMS as well as the [facility] staff as the patient typically is nonverbal and was found unresponsive at the [facility]. This morning according to nursing report the patient was without any complaints. He was subsequently found with an altered mental status just prior to calling the ambulance. He had a quite elevated respiratory rate. And he was hypoxic. Upon EMS arrival he was unresponsive to painful stimuli. His oxygen saturation was in the 50%. He was placed on high flow nonrebreather mask and given a nebulizer. He also was noted to be quite tachypneic in the 50s to 60s. Does have a known history of aspiration pneumonia as well as Alzheimer's and dementia. The HPI is unobtainable due to the patient's unresponsive state. The patient did have a negative rapid Covid test this morning at the [facility]. This was reported to me by the EMS staff. - Related Data Allergies Allergy/AdvReac Type Severity Reaction Status Date / Time No Known Allergies Allergy Verified 12/20/19 14:56 Home Meds: Home Meds Metoprolol Tartrate 12.5 mg PO BID 12/16/17 [History] Sennosides/Docusate Sodium [Senna Plus Tablet] 2 tab PO TID 12/16/17 [History] polyethylene glycoL 3350 [MiraLAX] 17 gm PO DAILY 12/16/17 [History] Omeprazole 20 mg PO ACBREAKFAST 01/18/19 [History] bisacodyL [Dulcolax] 5 mg PO DAILY PRN 01/18/19 [History] Furosemide [Lasix] 40 mg PO DAILY #30 tab 01/22/19 [Rx] risperiDONE 0.5 mg PO BEDTIME 12/20/19 [History] Acetaminophen [Tylenol] 650 mg PO Q4H PRN tablet 12/23/19 [Rx] guaiFENesin [Mucinex] 600 mg PO BID 09/02/20 [History] Past Medical History HEENT History: Reports: Cataract, Macular Degeneration Cardiovascular History: Reports: Afib, Heart Failure, Hypertension, Other (See Below) Other Cardiovascular History: edema Respiratory History: Reports: COPD Gastrointestinal History: Reports: Chronic Constipation Other Gastrointestinal History: 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 Genitourinary History: Reports: Chronic Renal Insuffiency Neurological History: Reports: Alzheimers Disease, Other (See Below) Other Neuro History: dementia Psychiatric History: Reports: Alzheimers Disease, Dementia Endocrine/Metabolic History: Reports: Other (See Below) Other Endocrine/Metabolic History: hyperosmolality, hypernatremia, lymphedema Hematologic History: Reports: B12 Deficiency - Past Surgical History HEENT Surgical History: Reports: Cataract Surgery Social & Family History - Family History Family Medical History: Noncontributory ED ROS GENERAL - Review of Systems Review Of Systems: Unable To Obtain Reason Not Obtained: Unresponsive ED EXAM, GENERAL - Physical Exam Exam: See Below Exam Limited By: Respiratory Distress (opens eyes to painful stimulation no spontaneous movement of his extremities.) General Appearance: Lethargic, Obtunded, Severe Distress Eye Exam: Bilateral Eye: EOMI, PERRL Ears: Normal External Exam Nose: Normal Inspection Throat/Mouth: Normal Inspection Head: Atraumatic, Normocephalic Neck: Normal Inspection Respiratory/Chest: Respiratory Distress (Resp rate shallow rate in the 50s. ), Decreased Breath Sounds (Minimal to no right lower lung sounds.), Crackles (Crackles and rhonchi in the right lower lung), Wheezing (Inspiratory expiratory bilaterally with more on the right.) Cardiovascular: Normal Peripheral Pulses, Tachycardia, Irregularly Irregular Peripheral Pulses: 1+: Radial (L), Radial (R), Posterior Tibial (L), Posterior Tibial (R), Dorsalis Pedis (L), Dorsalis Pedis (R) GI/Abdominal: Normal Bowel Sounds, Soft Extremities: No: Normal Inspection (No spontaneous movement of his extremities. Does respond moving his extremities to painful stimulation. 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 He has cool somewhat mottled skin in his legs and arms.) Neurological: Unresponsive (Altered mental status opens his eyes to painful stimulation) Skin Exam: Intact, Cool, Diaphoretic Course - Vital Signs Last Recorded V/S: Last Vital Signs Temp 98.9 F 09/03/20 13:52 Pulse 101 H 09/03/20 13:52 Resp 52 H 09/03/20 13:52 BP 95/34 L 09/03/20 13:52 Pulse Ox 88 L 09/03/20 13:52 - Orders/Labs/Meds Orders: Medication Orders Albuterol/Ipratropium (Duoneb 3.0-0.5 Mg/3 Ml) 3 ml NEB Q6HRRT PRN PRN Reason: Shortness of Breath Last Admin: 09/03/20 06:54 Dose: 3 ml Documented by: Admin: 09/03/20 02:53 Dose: 3 ml Documented by: Admin: 09/02/20 22:30 Dose: 3 ml Documented by: JOSE Guaifenesin (Mucinex) 600 mg PO BID GERONIMO Last Admin: 09/03/20 09:24 Dose: Not Given Documented by: Admin: 09/02/20 22:47 Dose: Not Given Documented by: JOSE Morphine Sulfate (Morphine) 2 mg IVPUSH Q2H PRN PRN Reason: respiratory distress Last Admin: 09/03/20 17:21 Dose: 2 mg Documented by: Admin: 09/03/20 13:54 Dose: 2 mg Documented by: Admin: 09/03/20 09:31 Dose: 2 mg Documented by: ARIN Sodium Chloride (Saline Flush) 10 ml FLUSH ASDIRECTED PRN PRN Reason: Keep Vein Open Last Admin: 09/03/20 02:48 Dose: 10 ml Documented by: JOSE Labs: Laboratory Tests 09/02/20 09/02/20 09/02/20 Range/Units 12:40 12:40 12:40 WBC 8.9 (4.0-10.0) x10^3/uL RBC 4.66 (4.5-6.0) x10^6/uL Hgb 12.5 L D (14.0-18.0) g/dL Hct 44.1 (40.0-52.0) % MCV 94.6 H D (78.0-93.0) fL MCH 26.8 (26.0-32.0) pg MCHC 28.3 L (32.0-36.0) g/dL RDW Coeff of Roberto 15.7 H (10.0-15.0) % Plt Count 184 (130-400) x10^3/uL Neut % (Auto) 82.6 H (50.0-80.0) % Lymph % (Auto) 11.4 L (25.0-50.0) % [place] % (Auto) 5.0 (2.0-11.0) % Eos % (Auto) 0.8 (0.0-4.0) % Baso % (Auto) 0.2 (0.2-1.2) % POC ABG pH (7.35-7.45) pH POC ABG pCO2 (35-48) mmHg POC ABG pO2 (83-108) mmHg POC ABG HCO3 (21-28) mmol/L POC ABG Total CO2 (22-29) mmol/L POC ABG O2 Sat % POC ABG Base Excess (-2-3) mmol/L POC FiO2 Sodium 164 H* (136-145) mmol/L Potassium 4.9 (3.5-5.1) mmol/L Chloride 126 H (98-107) mmol/L Carbon Dioxide 28 (21-32) mmol/L Anion Gap 14.9 (10-20) mmol/L BUN 71 H* (7-18) mg/dL Creatinine 2.1 H (0.70-1.30) mg/dL Est Cr Clr Drug Dosing TNP Estimated GFR (MDRD) 30 Glucose 162 H (74-106) mg/dL Lactic Acid 2.8 H* (0.4-2.0) mmol/L Calcium 9.0 (8.5-10.1) mg/dL Corrected Calcium 9.72 (8.5-10.1) mg/dL Total Bilirubin 0.4 (0.2-1.0) mg/dL AST 27 (15-37) U/L ALT 56 (16-63) U/L Alkaline Phosphatase 58 (46-116) U/L Troponin I < 0.017 (<=0.056) ng/mL C-Reactive Protein 6.1 H (<=0.9) mg/dL Total Protein 7.9 (6.4-8.2) g/dL Albumin 3.1 L (3.4-5.0) g/dL Globulin 4.8 Albumin/Globulin Ratio 0.65 09/02/20 Range/Units 12:45 WBC (4.0-10.0) x10^3/uL RBC (4.5-6.0) x10^6/uL Hgb (14.0-18.0) g/dL Hct (40.0-52.0) % MCV (78.0-93.0) fL MCH (26.0-32.0) pg MCHC (32.0-36.0) g/dL RDW Coeff of Roberto (10.0-15.0) % Plt Count (130-400) x10^3/uL Neut % (Auto) (50.0-80.0) % Lymph % (Auto) (25.0-50.0) % [place] % (Auto) (2.0-11.0) % Eos % (Auto) (0.0-4.0) % Baso % (Auto) (0.2-1.2) % POC ABG pH 7.49 H (7.35-7.45) pH POC ABG pCO2 39 (35-48) mmHg POC ABG pO2 93 (83-108) mmHg POC ABG HCO3 29.5 H (21-28) mmol/L POC ABG Total CO2 28.9 (22-29) mmol/L POC ABG O2 Sat 97.8 % POC ABG Base Excess 6 H (-2-3) mmol/L POC FiO2 100 Sodium (136-145) mmol/L Potassium (3.5-5.1) mmol/L Chloride (98-107) mmol/L Carbon Dioxide (21-32) mmol/L Anion Gap (10-20) mmol/L BUN (7-18) mg/dL Creatinine (0.70-1.30) mg/dL Est Cr Clr Drug Dosing Estimated GFR (MDRD) Glucose (74-106) mg/dL Lactic Acid (0.4-2.0) mmol/L Calcium (8.5-10.1) mg/dL Corrected Calcium (8.5-10.1) mg/dL Total Bilirubin (0.2-1.0) mg/dL AST (15-37) U/L ALT (16-63) U/L Alkaline Phosphatase (46-116) U/L Troponin I (<=0.056) ng/mL C-Reactive Protein (<=0.9) mg/dL Total Protein (6.4-8.2) g/dL Albumin (3.4-5.0) g/dL Globulin Albumin/Globulin Ratio Meds: Medications Generic Name Dose Route Start Last Admin Trade Name Freq PRN Reason Stop Dose Admin Albuterol/Ipratropium 3 ml 09/02/20 16:12 09/03/20 06:54 Duoneb 3.0-0.5 Mg/3 Ml NEB 3 ml Q6HRRT PRN Administration Shortness of Breath Guaifenesin 600 mg 09/02/20 20:00 09/03/20 09:24 Mucinex PO Not Given BID GERONIMO Morphine Sulfate 2 mg 09/03/20 09:21 09/03/20 17:21 Morphine IVPUSH 2 mg Q2H PRN Administration respiratory distress Sodium Chloride 10 ml 09/02/20 12:22 09/03/20 02:48 Saline Flush FLUSH 10 ml ASDIRECTED PRN Administration Keep Vein Open Discontinued Medications Generic Name Dose Route Start Last Admin Trade Name Freq PRN Reason Stop Dose Admin Acetaminophen 650 mg 09/02/20 16:09 Tylenol PO Q4H PRN Pain (Mild 1-3)/fever Bisacodyl 5 mg 09/02/20 16:09 Dulcolax PO DAILY PRN Constipation Enoxaparin Sodium 40 mg 09/03/20 08:00 09/03/20 09:24 Lovenox SUBCUT Not Given DAILY [facility] Piperacillin Sod/Tazobactam 100 mls @ 200 mls/hr 09/02/20 12:42 09/02/20 12:55 Sod 3.375 gm/ Sodium Chloride IV 09/02/20 13:11 200 mls/hr STAT ONE Administration Lactated Ringer's 1,000 mls @ 125 mls/hr 09/02/20 13:34 09/02/20 13:40 Ringers, Lactated IV 09/02/20 21:33 125 mls/hr ONETIME ONE Administration Lactated Ringer's 1,000 mls @ 125 mls/hr 09/02/20 16:00 09/02/20 18:08 Ringers, Lactated IV 125 mls/hr ASDIRECTED GERONIMO Administration Piperacillin Sod/Tazobactam 100 mls @ 200 mls/hr 09/02/20 19:00 Sod 2.25 gm/ Sodium Chloride IV Q6H GERONIMO Piperacillin Sod/Tazobactam 100 mls @ 25 mls/hr 09/02/20 18:00 09/03/20 02:48 Sod 3.375 gm/ Sodium Chloride IV 25 mls/hr Q8H GERONIMO Administration Metoprolol Tartrate 12.5 mg 09/02/20 20:00 09/03/20 09:24 Lopressor PO Not Given BID GERONIMO Omeprazole 20 mg 09/03/20 07:00 09/03/20 06:53 Omeprazole PO Not Given ACBREAKFAST GERONIMO Piperacillin Sod/Tazobactam Sod Confirm 09/02/20 12:53 09/02/20 12:48 Zosyn Administered 09/02/20 12:54 Not Given Dose 3.375 gm .ROUTE .STK-MED ONE Risperidone 0.5 mg 09/02/20 20:00 09/02/20 22:48 Risperidal PO Not Given BEDTIME GERONIMO Senna/Docusate Sodium 2 tab 09/02/20 20:00 09/03/20 12:22 Senna Plus PO Not Given TID GERONIMO - Radiology Interpretation Free Text/Narrative:: Chest x-ray per radiology shows small to moderate right pleural effusion with a ssociated compressive atelectasis. Right basilar infiltrate is not excluded. - Re-Assessments/Exams Free Text/Narrative Re-Assessment/Exam: The patient upon arrival in severe respiratory distress with concerns for impending respiratory failure. The patient is a DNR/DNI. He was placed on BiPAP ventilation. With a positive airway pressure of 15+ end expiratory pressure of 7 and 100% FiO2. Blood cultures were drawn as well as labs. LR bolus 500 mill bolus of 125 an hour. Zosyn 3.375 with concerns of aspiration sepsis and pneumonia. The patient's oxygen saturation did improve to 100%. His respiratory rate did improve into the lower 30s. His skin became pink warm and dry. He was not is diaphoretic. He is now opening his eyes to loud verbal. Arterial blood gases show a pH of 7.49, PCO2 of 39, PaO2 93 bicarb 29 and a base excess of 6. Was to slowly wean down the FiO2 down to about 80%. His respiratory rate remained in the 30s. He has perfusing better. I called and spoke with the patient's point of care contact which is his [id number]. I reiterated my concerns of impending respiratory failure without the usage of the BiPAP. She does not want comfort measures although this has been discussed in the past with his recurrent aspiration pneumonias. She would still like him to receive BiPAP ventilation as well as antibiotic ther apy. I called and spoke with Dr. Jim. HPI ER COURSE findings and concerns were relayed to her verbally over the phone. She came and saw the patient in the ED and will admit inpatient here in [place]. Departure - Departure Time of Disposition: 17:30 Disposition: Admitted As Inpatient 68 Clinical Impression: Hypernatremia, Hypoxemia, Respiratory distress Pneumonia Qualifiers: Pneumonia type: due to unspecified organism Laterality: right Lung location: lower lobe of lung Qualified Code(s): J18.9 - Pneumonia, unspecified organism - Discharge Information
[2020-09-02] MEDS ORDERED: Lactated Ringers 1,000 ML IV ONE (13:34)
[2020-09-02 13:49] LABS: CHLORIDE,CL 126 mmol/L (98-107)
[2020-09-02 13:55] LABS: ANION GAP 14.9 mmol/L (10-20); SODIUM,NA 164 mmol/L (136-145)
[2020-09-02] MEDS ORDERED: Lactated Ringers 1,000 ML IV SCH (16:00)
[2020-09-02] MEDS ORDERED: Acetaminophen 325 MG Tab PO PRN (16:09)
[2020-09-02] MEDS ORDERED: Bisacodyl 5 MG Tab PO PRN (16:09)
--- NOTE | 2020-09-02 16:21 | PCM.HP.2 ---
H&P History of Present Illness - General Date of Service: 09/02/20 Admit Problem/Dx: Admission Diagnosis/Problem Admission Diagnosis/Problem Pneumonia Source of Information: Patient History Limitations: Reports: Other (patient is nonverbal at baseline) - History of Present Illness Initial Comments - Free Text/Narative: Mr. Purcell is an 84 yo male who is nonverbal at baseline due to underlying Alzheimer's dementia also with a PMH of hypertension, a-fib, CHF, recurrent aspiration pneumonia, CKD, and chronic constipation who was referred to the ER for evaluation of respiratory distress and hypoxia that started suddenly late this morning. The patient is nonverbal and is not able to give any history; therefore, this is obtained from the ER and from assisted report. The patient was fine about an hour prior and then was found unresponsive with a respiratory rate in the 50's and oxygen saturations in the 60's. - Related Data Allergies/Adverse Reactions: Allergies Allergy/AdvReac Type Severity Reaction Status Date / Time No Known Allergies Allergy Verified 12/20/19 14:56 Home Medications: Home Meds Metoprolol Tartrate 12.5 mg PO BID 12/16/17 [History] Sennosides/Docusate Sodium [Senna Plus Tablet] 2 tab PO TID 12/16/17 [History] polyethylene glycoL 3350 [MiraLAX] 17 gm PO DAILY 12/16/17 [History] Omeprazole 20 mg PO ACBREAKFAST 01/18/19 [History] bisacodyL [Dulcolax] 5 mg PO DAILY PRN 01/18/19 [History] Furosemide [Lasix] 40 mg PO DAILY #30 tab 01/22/19 [Rx] risperiDONE 0.5 mg PO BEDTIME 12/20/19 [History] Acetaminophen [Tylenol] 650 mg PO Q4H PRN tablet 12/23/19 [Rx] guaiFENesin [Mucinex] 600 mg PO BID 09/02/20 [History] Past Medical History HEENT History: Reports: Cataract, Macular Degeneration Cardiovascular History: Reports: Afib, Heart Failure, Hypertension, Other (See Below) Other Cardiovascular History: edema Respiratory History: Reports: COPD Gastrointestinal History: Reports: Chronic Constipation Other Gastrointestinal History: 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 Genitourinary History: Reports: Chronic Renal Insuffiency Musculoskeletal History: Reports: None Neurological History: Reports: Alzheimers Disease Psychiatric History: Reports: Alzheimers Disease, Dementia Endocrine/Metabolic History: Reports: Other (See Below) Other Endocrine/Metabolic History: hyperosmolality, hypernatremia, lymphedema Hematologic History: Reports: B12 Deficiency - Past Surgical History HEENT Surgical History: Reports: Cataract Surgery GI Surgical History: Reports: Colonoscopy, EGD Social & Family History - Family History Family Medical History: Unobtainable (patient not able to answer and nothing listed in EMR) - Tobacco Use Tobacco Use Status *Q: Former Tobacco User Second Hand Smoke Exposure: No - Caffeine Use Caffeine Use: Reports: Other - Alcohol Use Alcohol Use in Last Twelve Months: No - Recreational Drug Use Recreational Drug Use: No - Living Situation & Occupation Living situation: Reports: Single, Extended Care Facility Occupation: Disabled H&P Review of Systems - Review of Systems: Review Of Systems: Unable To Obtain Reason Not Obtained: patient is nonverbal due to dementia Exam - Exam Exam: See Below - Vital Signs Vital Signs: Last Vital Signs Temp 36.8 C 09/02/20 15:02 Pulse 88 09/02/20 15:02 Resp 38 H 09/02/20 15:02 BP 114/61 09/02/20 15:02 Pulse Ox 96 09/02/20 15:02 Weight: 92.986 kg - Exam General: Alert, Cooperative, Mild Distress HEENT: Conjunctiva Clear, Mucosa Moist & [place], Pupils Equal, Pupils Reactive Neck: Supple, Trachea Midline. No: Lymphadenopathy, Thyromegaly Lungs: Other (slightly increased work of breathing) Cardiovascular: Regular Rate, Normal S1, Normal S2, Irregular Rhythm GI/Abdominal Exam: Normal Bowel Sounds, Soft, Non-Tender, No Organomegaly, No Distention, No Mass Extremities: Non-Tender, No Pedal Edema, Normal Capillary Refill Peripheral Pulses: 2+: Radial (L), Radial (R) Skin: Warm, Dry, Intact Psychiatric: Alert - Patient Data Lab Results Last 24 hrs: Laboratory Results - last 24 hr 09/02/20 09/02/20 09/02/20 Range/Units 12:40 12:40 12:40 WBC 8.9 (4.0-10.0) x10^3/uL RBC 4.66 (4.5-6.0) x10^6/uL Hgb 12.5 L D (14.0-18.0) g/dL Hct 44.1 (40.0-52.0) % MCV 94.6 H D (78.0-93.0) fL MCH 26.8 (26.0-32.0) pg MCHC 28.3 L (32.0-36.0) g/dL RDW Coeff of Roberto 15.7 H (10.0-15.0) % Plt Count 184 (130-400) x10^3/uL Neut % (Auto) 82.6 H (50.0-80.0) % Lymph % (Auto) 11.4 L (25.0-50.0) % Bay % (Auto) 5.0 (2.0-11.0) % Eos % (Auto) 0.8 (0.0-4.0) % Baso % (Auto) 0.2 (0.2-1.2) % POC ABG pH (7.35-7.45) pH POC ABG pCO2 (35-48) mmHg POC ABG pO2 (83-108) mmHg POC ABG HCO3 (21-28) mmol/L POC ABG Total CO2 (22-29) mmol/L POC ABG O2 Sat % POC ABG Base Excess (-2-3) mmol/L POC FiO2 Sodium 164 H* (136-145) mmol/L Potassium 4.9 (3.5-5.1) mmol/L Chloride 126 H (98-107) mmol/L Carbon Dioxide 28 (21-32) mmol/L Anion Gap 14.9 (10-20) mmol/L BUN 71 H* (7-18) mg/dL Creatinine 2.1 H (0.70-1.30) mg/dL Est Cr Clr Drug Dosing TNP Estimated GFR (MDRD) 30 Glucose 162 H (74-106) mg/dL Lactic Acid 2.8 H* (0.4-2.0) mmol/L Calcium 9.0 (8.5-10.1) mg/dL Corrected Calcium 9.72 (8.5-10.1) mg/dL Total Bilirubin 0.4 (0.2-1.0) mg/dL AST 27 (15-37) U/L ALT 56 (16-63) U/L Alkaline Phosphatase 58 (46-116) U/L Troponin I < 0.017 (<=0.056) ng/mL C-Reactive Protein 6.1 H (<=0.9) mg/dL Total Protein 7.9 (6.4-8.2) g/dL Albumin 3.1 L (3.4-5.0) g/dL Globulin 4.8 Albumin/Globulin Ratio 0.65 09/02/20 09/02/20 09/02/20 Range/Units 12:45 15:10 15:10 WBC (4.0-10.0) x10^3/uL RBC (4.5-6.0) x10^6/uL Hgb (14.0-18.0) g/dL Hct (40.0-52.0) % MCV (78.0-93.0) fL MCH (26.0-32.0) pg MCHC (32.0-36.0) g/dL RDW Coeff of Roberto (10.0-15.0) % Plt Count (130-400) x10^3/uL Neut % (Auto) (50.0-80.0) % Lymph % (Auto) (25.0-50.0) % Bay % (Auto) (2.0-11.0) % Eos % (Auto) (0.0-4.0) % Baso % (Auto) (0.2-1.2) % POC ABG pH 7.49 H (7.35-7.45) pH POC ABG pCO2 39 (35-48) mmHg POC ABG pO2 93 (83-108) mmHg POC ABG HCO3 29.5 H (21-28) mmol/L POC ABG Total CO2 28.9 (22-29) mmol/L POC ABG O2 Sat 97.8 % POC ABG Base Excess 6 H (-2-3) mmol/L POC FiO2 100 Sodium 161 H* (136-145) mmol/L Potassium (3.5-5.1) mmol/L Chloride (98-107) mmol/L Carbon Dioxide (21-32) mmol/L Anion Gap (10-20) mmol/L BUN (7-18) mg/dL Creatinine (0.70-1.30) mg/dL Est Cr Clr Drug Dosing Estimated GFR (MDRD) Glucose (74-106) mg/dL Lactic Acid 10.4 H* (0.4-2.0) mmol/L Calcium (8.5-10.1) mg/dL Corrected Calcium (8.5-10.1) mg/dL Total Bilirubin (0.2-1.0) mg/dL AST (15-37) U/L ALT (16-63) U/L Alkaline Phosphatase (46-116) U/L Troponin I (<=0.056) ng/mL C-Reactive Protein (<=0.9) mg/dL Total Protein (6.4-8.2) g/dL Albumin (3.4-5.0) g/dL Globulin Albumin/Globulin Ratio Result Diagrams: 09/02/20 12:40 09/02/20 15:10 Ricardo Results Last 24 hrs: Microbiology 09/02/20 12:55 Anaerobic Blood Culture - Final Blood - Venous - Lab Draw Sepsis Event Note - Focused Exam Vital Signs: Vital Signs Temp Pulse Resp BP Pulse Ox 09/02/20 15:02 36.8 C 88 38 H 114/61 96 - Problem List (1) Sepsis SNOMED Code(s): 93636246 ICD Code: A41.9 - SEPSIS, UNSPECIFIED ORGANISM Status: Acute Current Visit: No Qualifiers: Sepsis type: sepsis due to unspecified organism Sepsis acute organ dysfunction status: with acute organ dysfunction Severe sepsis acute organ dysfunction type: acute renal failure Acute renal failure type: unspecified Severe sepsis shock status: without septic shock Qualified Code(s): A41.9 - Sepsis, unspecified organism; R65.20 - Severe sepsis without septic shock; N17.9 - Acute kidney failure, unspecified (2) Community acquired pneumonia SNOMED Code(s): 201310218 ICD Code: J18.9 - PNEUMONIA, UNSPECIFIED ORGANISM Status: Acute Current Visit: Yes Qualifiers: Laterality: right Lung location: lower lobe of lung Qualified Code(s): J18.9 - Pneumonia, unspecified organism (3) ARF (acute respiratory failure) SNOMED Code(s): 40667579 ICD Code: J96.00 - ACUTE RESPIRATORY FAILURE, UNSP W HYPOXIA OR HYPERCAPNIA Status: Acute Current Visit: No Qualifiers: Respiratory failure complication: hypoxia Qualified Code(s): J96.01 - Acute respiratory failure with hypoxia (4) Acute renal insufficiency SNOMED Code(s): 739910724 ICD Code: N28.9 - DISORDER OF KIDNEY AND URETER, UNSPECIFIED Status: Acute Current Visit: No (5) Dehydration SNOMED Code(s): 58560660 ICD Code: E86.0 - DEHYDRATION Status: Acute Current Visit: No (6) Hypernatremia SNOMED Code(s): 014908695 ICD Code: E87.0 - HYPEROSMOLALITY AND HYPERNATREMIA Status: Acute Current Visit: No (7) COPD (chronic obstructive pulmonary disease) SNOMED Code(s): 93452994 ICD Code: J44.9 - CHRONIC OBSTRUCTIVE PULMONARY DISEASE, UNSPECIFIED Status: Chronic Priority: Medium Current Visit: No Qualifiers: COPD type: COPD with acute exacerbation Qualified Code(s): J44.1 - Chronic obstructive pulmonary disease with (acute) exacerbation (8) Alzheimer disease SNOMED Code(s): 17302624 ICD Code: G30.9 - ALZHEIMER'S DISEASE, UNSPECIFIED; F02.80 - DEMENTIA IN OTH DISEASES CLASSD ELSWHR W/O BEHAVRL DISTURB Status: Chronic Current Visit: No Qualifiers: Alzheimer's disease onset: late-onset Dementia behavioral disturbance: with behavioral disturbance Qualified Code(s): G30.1 - Alzheimer's disease with late onset; F02.81 - Dementia in other diseases classified elsewhere with behavioral disturbance (9) Chronic atrial fibrillation SNOMED Code(s): 493290433 ICD Code: I48.2 - CHRONIC ATRIAL FIBRILLATION * DO NOT USE * Status: Chronic Priority: Medium Current Visit: No (10) Essential hypertension SNOMED Code(s): 30054862 ICD Code: I10 - ESSENTIAL (PRIMARY) HYPERTENSION Status: Chronic Priority: Low Current Visit: No (11) CHF (congestive heart failure) SNOMED Code(s): 55056039 ICD Code: I50.9 - HEART FAILURE, UNSPECIFIED Status: Chronic Current Visit: Yes Qualifiers: Heart failure type: diastolic Heart failure chronicity: chronic Qualified Code(s): I50.32 - Chronic diastolic (congestive) heart failure (12) GERD (gastroesophageal reflux disease) SNOMED Code(s): 757806249 ICD Code: K21.9 - GASTRO-ESOPHAGEAL REFLUX DISEASE WITHOUT ESOPHAGITIS Status: Chronic Current Visit: Yes Qualifiers: Esophagitis presence: esophagitis presence not specified Qualified Code(s): K21.9 - Gastro-esophageal reflux disease without esophagitis (13) Constipation SNOMED Code(s): 07985661 ICD Code: K59.00 - CONSTIPATION, UNSPECIFIED Status: Chronic Current Visit: Yes Qualifiers: Constipation type: unspecified constipation type Qualified Code(s): K59.00 - Constipation, unspecified Problem List Initiated/Reviewed/Updated: Yes Orders Last 24hrs: Active Orders 24 hr Category Date Time Status Admission Status [Patient Status] [ADT] Routine ADT 09/02/20 15:18 Active Patient Status [ADT] Routine ADT 09/02/20 15:02 Active Dietary Supplements [RC] BIDMEALS Care 09/02/20 15:58 Active EKG Documentation Completion [RC] STAT Care 09/02/20 12:21 Active Notify Provider Vital Signs [RC] ASDIRECTED Care 09/02/20 15:04 Active Oxygen Therapy [RC] PRN Care 09/02/20 15:02 Active RT Aerosol Therapy [RC] ASDIRECTED Care 09/02/20 16:12 Ordered Up With Assistance [RC] ASDIRECTED Care 09/02/20 15:02 Active VTE/DVT Education [RC] PER UNIT ROUTINE Care 09/02/20 15:02 Active Vital Signs [RC] Q4H Care 09/02/20 15:02 Active Regular Diet [DIET] Diet 09/02/20 Dinner Ordered CULTURE BLOOD [BC] Stat Lab 09/02/20 12:40 Received CULTURE BLOOD [BC] Stat Lab 09/02/20 12:55 Results LACTIC ACID [CHEM] Timed Lab 09/02/20 17:30 Ordered SODIUM,NA [CHEM] Timed Lab 09/02/20 17:30 Ordered Acetaminophen [TylenoL] Med 09/02/20 16:09 Ordered 650 mg PO Q4H PRN Albuterol/Ipratropium [DuoNeb 3.0-0.5 MG/3 ML] Med 09/02/20 16:12 Ordered 3 ml NEB Q6HRRT PRN Docusate Sodium/Sennosides [Senna Plus] Med 09/02/20 20:00 Ordered 2 tab PO TID Enoxaparin [Lovenox] Med 09/03/20 08:00 Active 40 mg SUBCUT DAILY Lactated Ringers [Ringers, Lactated] 1,000 ml Med 09/02/20 16:00 Active IV ASDIRECTED Lactated Ringers [Ringers, Lactated] 1,000 ml Med 09/02/20 13:34 Active IV ONETIME Metoprolol Tartrate [Lopressor] Med 09/02/20 20:00 Ordered 12.5 mg PO BID Omeprazole Med 09/03/20 07:00 Ordered 20 mg PO ACBREAKFAST Piperacillin/Tazobactam [Zosyn] 3.375 gm Med 09/02/20 18:00 Active Sodium Chloride 0.9% [Normal Saline] 100 ml IV Q8H Sodium Chloride 0.9% [Saline Flush] Med 09/02/20 12:22 Active 10 ml FLUSH ASDIRECTED PRN bisacodyL [Dulcolax] Med 09/02/20 16:09 Ordered 5 mg PO DAILY PRN guaiFENesin [Mucinex] Med 09/02/20 20:00 Ordered 600 mg PO BID polyethylene glycoL 3350 [MiraLAX] Med 09/03/20 08:00 Unverified DOSE UNIT RTE FREQ risperiDONE [risperiDONE] Med 09/02/20 20:00 Ordered 0.5 mg PO BEDTIME Blood Culture x2 Reflex Set [OM.PC] Stat Oth 09/02/20 12:21 Ordered Peripheral IV Insertion Adult [OM.PC] Stat Oth 09/02/20 12:21 Ordered Resuscitation Status Routine Resus Stat 09/02/20 15:02 Ordered Medication Orders Acetaminophen (Tylenol) 650 mg PO Q4H PRN PRN Reason: Pain (Mild 1-3)/fever Albuterol/Ipratropium (Duoneb 3.0-0.5 Mg/3 Ml) 3 ml NEB Q6HRRT PRN PRN Reason: Shortness of Breath Bisacodyl (Dulcolax) 5 mg PO DAILY PRN PRN Reason: Constipation Enoxaparin Sodium (Lovenox) 40 mg SUBCUT DAILY GERONIMO Guaifenesin (Mucinex) 600 mg PO BID GERONIMO Lactated Ringer's (Ringers, Lactated) 1,000 mls @ 125 mls/hr IV ONETIME ONE Stop: 09/02/20 21:33 Last Admin: 09/02/20 13:40 Dose: 125 mls/hr Documented by: BIETAMY Lactated Ringer's (Ringers, Lactated) 1,000 mls @ 125 mls/hr IV ASDIRECTED GERONIMO Piperacillin Sod/Tazobactam (Sod 3.375 gm/ Sodium Chloride) 100 mls @ 25 mls/hr IV Q8H [facility] Metoprolol Tartrate (Lopressor) 12.5 mg PO BID [facility] Non-Formulary Medication (Risperidone [Risperidone]) 0.5 mg PO BEDTIME GERONIMO Omeprazole (Omeprazole) 20 mg PO ACBREAKFAST [facility] Senna/Docusate Sodium (Senna Plus) 2 tab PO TID [facility] Sodium Chloride (Saline Flush) 10 ml FLUSH ASDIRECTED PRN PRN Reason: Keep Vein Open Assessment/Plan Comment:: 84 yo male admitted for acute hypoxic respiratory failure secondary to pneumonia. #1 Sepsis, secondary to #2 - Meets sepsis criteria with his respiratory rate and heart rate (even though WBC and temp normal). - Initial lactic acid was only slightly elevated. Repeat up to >10, which is felt to represent a delayed representation of an acute illness rather than a true worsening. Will recheck again at 5:30 to monitor the trend closely. - He got a bolus in the ER and will be continued on maintenance fluids for now given stability of vital signs. - Antibiotics as below. #2 Community acquired pneumonia #3 Acute hypoxic respiratory failure - Rapid COVID negative and clinical picture is also not consistent with this. - Consider aspiration as well but the clinical picture and location of the infiltrate on CXR are not entirely consistent with this. - Given consideration for aspiration component, will continue zosyn at this time. - Will do dosing of 2.25 mg q6 based on his CrCl in the 30's. - Blood cultures pending. - As long as he is tolerating the BiPap, will continue this overnight and attempt weaning tomorrow. If he quits tolerating this well, then #4 Acute renal failure #5 Dehydration #6 Hypernatremia - Patient's baseline creatinine is unclear as his creatinine in January was normal and then it was already increased to 1.7 a couple weeks ago. - Sodium also severely elevated at 164. Repeat sodium already improved to 161. Will repeat again with lactic acid at 5:30 pm. - Patient got a bolus in the ER and will be on maintenance fluids for now given stability of vital signs and history of CHF. - LR ordered @ 125 cc/hr. #7 COPD - Continue PRN DuoNebs. #8 Alzheimer Disease - Continue home medications. - Will reorient as able. - His POA is his sister in law (Ramandeep [phone]). #9 Atrial fibrillation #10 Hypertension #11 CHF #12 GERD #13 Constipation - Continue home medications with the exception of holding his lasix for now. - Will reassess daily the ability to resume this. - Unclear why he is not on anticoagulation for his a-fib but this is deferred to the outpatient setting since he will be on lovenox inpatient. Patient will be admitted to acute as it is anticipated he will require at least 2 midnights of hospitalization to treat the above noted conditions. See details under problems above. Home medications to be continued with the exception of his lasix for now. Patient is DNR/DNI - discussed with his [id number] (and POA) on admission. She is ok with IV fluids, IV antibiotics, and BiPap. Lovenox for VTE prophylaxis.
[2020-09-02] MEDS: Piperacillin/Tazobactam 3.375 GM in Sodium Chloride 0.9% 100 ML IV SCH (18:07)
[2020-09-02] MEDS ORDERED: Piperacillin/Tazobactam 2.25 GM in Sodium Chloride 0.9% 100 ML IV SCH (19:00)
[2020-09-02] MEDS ORDERED: risperiDONE 0.25 MG Tab PO SCH (20:00)
[2020-09-02] MEDS: Albuterol/Ipratropium 3.0-0.5 MG/3 ML Neb Soln NEB PRN (22:30)
[2020-09-02] MEDS: Metoprolol Tartrate 25 MG Tab PO SCH (22:47)
[2020-09-02] MEDS: guaiFENesin 600 MG Tab.ER PO SCH (22:47)
[2020-09-03] MEDS: Sodium Chloride 0.9% 10 ML Syringe FLUSH PRN ×2 (02:48→23:54)
[2020-09-03] MEDS: Piperacillin/Tazobactam 3.375 GM in Sodium Chloride 0.9% 100 ML IV SCH (02:48)
[2020-09-03] MEDS: Albuterol/Ipratropium 3.0-0.5 MG/3 ML Neb Soln NEB PRN ×2 (02:53→06:54)
[2020-09-03] MEDS ORDERED: Omeprazole 20 MG Cap.CR PO SCH (07:00)
[2020-09-03 07:28] LABS: ANION GAP 16.3 mmol/L (10-20)
[2020-09-03] MEDS ORDERED: Enoxaparin 40 MG/0.4 ML Syringe SUBCUT SCH (08:00)
--- NOTE | 2020-09-03 08:00 | PCM.PN ---
- General Info Date of Service: 09/03/20 Subjective Update: 84 yo male hospital day #2 for sepsis secondary to community acquired pneumonia. Has not done well overnight. He has had intermittent increases in respiratory rate. He had otherwise appeared without respiratory distress up until early this morning when he started to have more retractions. He has not been alert overnight at any point in time. The patient is nonverbal and does not answer questions at baseline. - Review of Systems Systems Review Comment:: unable to assess as patient is nonverbal - Patient Data Vitals - Most Recent: Last Vital Signs Temp 37.0 C 09/03/20 06:00 Pulse 109 H 09/03/20 06:00 Resp 43 H 09/03/20 06:00 BP 117/61 09/03/20 06:00 Pulse Ox 92 L 09/03/20 06:00 Weight - Most Recent: 92.986 kg I&O - Last 24 Hours: Intake & Output 09/02/20 09/03/20 09/03/20 22:59 06:59 14:59 Intake Total 100 500 Output Total 500 Balance 100 0 Lab Results Last 24 Hours: Laboratory Results - last 24 hr 09/02/20 09/02/20 09/02/20 Range/Units 12:40 12:40 12:40 WBC 8.9 (4.0-10.0) x10^3/uL RBC 4.66 (4.5-6.0) x10^6/uL Hgb 12.5 L D (14.0-18.0) g/dL Hct 44.1 (40.0-52.0) % MCV 94.6 H D (78.0-93.0) fL MCH 26.8 (26.0-32.0) pg MCHC 28.3 L (32.0-36.0) g/dL RDW Coeff of Roberto 15.7 H (10.0-15.0) % Plt Count 184 (130-400) x10^3/uL Neut % (Auto) 82.6 H (50.0-80.0) % Lymph % (Auto) 11.4 L (25.0-50.0) % Morris % (Auto) 5.0 (2.0-11.0) % Eos % (Auto) 0.8 (0.0-4.0) % Baso % (Auto) 0.2 (0.2-1.2) % Add Manual Diff Neutrophils % (Manual) (50-80) % Band Neutrophils % (0-6) % Lymphocytes % (Manual) (25-50) % Monocytes % (Manual) (2-11) % Metamyelocytes % (0) % Nucleated RBCs (0-5) /100WBC Toxic Granulation Giant Platelets POC ABG pH (7.35-7.45) pH POC ABG pCO2 (35-48) mmHg POC ABG pO2 (83-108) mmHg POC ABG HCO3 (21-28) mmol/L POC ABG Total CO2 (22-29) mmol/L POC ABG O2 Sat % POC ABG Base Excess (-2-3) mmol/L POC FiO2 Sodium 164 H* (136-145) mmol/L Potassium 4.9 (3.5-5.1) mmol/L Chloride 126 H (98-107) mmol/L Carbon Dioxide 28 (21-32) mmol/L Anion Gap 14.9 (10-20) mmol/L BUN 71 H* (7-18) mg/dL Creatinine 2.1 H (0.70-1.30) mg/dL Est Cr Clr Drug Dosing TNP Estimated GFR (MDRD) 30 Glucose 162 H (74-106) mg/dL Lactic Acid 2.8 H* (0.4-2.0) mmol/L Calcium 9.0 (8.5-10.1) mg/dL Corrected Calcium 9.72 (8.5-10.1) mg/dL Total Bilirubin 0.4 (0.2-1.0) mg/dL AST 27 (15-37) U/L ALT 56 (16-63) U/L Alkaline Phosphatase 58 (46-116) U/L Troponin I < 0.017 (<=0.056) ng/mL C-Reactive Protein 6.1 H (<=0.9) mg/dL Total Protein 7.9 (6.4-8.2) g/dL Albumin 3.1 L (3.4-5.0) g/dL Globulin 4.8 Albumin/Globulin Ratio 0.65 09/02/20 09/02/20 09/02/20 Range/Units 12:45 15:10 15:10 WBC (4.0-10.0) x10^3/uL RBC (4.5-6.0) x10^6/uL Hgb (14.0-18.0) g/dL Hct (40.0-52.0) % MCV (78.0-93.0) fL MCH (26.0-32.0) pg MCHC (32.0-36.0) g/dL RDW Coeff of Roberto (10.0-15.0) % Plt Count (130-400) x10^3/uL Neut % (Auto) (50.0-80.0) % Lymph % (Auto) (25.0-50.0) % Morris % (Auto) (2.0-11.0) % Eos % (Auto) (0.0-4.0) % Baso % (Auto) (0.2-1.2) % Add Manual Diff Neutrophils % (Manual) (50-80) % Band Neutrophils % (0-6) % Lymphocytes % (Manual) (25-50) % Monocytes % (Manual) (2-11) % Metamyelocytes % (0) % Nucleated RBCs (0-5) /100WBC Toxic Granulation Giant Platelets POC ABG pH 7.49 H (7.35-7.45) pH POC ABG pCO2 39 (35-48) mmHg POC ABG pO2 93 (83-108) mmHg POC ABG HCO3 29.5 H (21-28) mmol/L POC ABG Total CO2 28.9 (22-29) mmol/L POC ABG O2 Sat 97.8 % POC ABG Base Excess 6 H (-2-3) mmol/L POC FiO2 100 Sodium 161 H* (136-145) mmol/L Potassium (3.5-5.1) mmol/L Chloride (98-107) mmol/L Carbon Dioxide (21-32) mmol/L Anion Gap (10-20) mmol/L BUN (7-18) mg/dL Creatinine (0.70-1.30) mg/dL Est Cr Clr Drug Dosing Estimated GFR (MDRD) Glucose (74-106) mg/dL Lactic Acid 10.4 H* (0.4-2.0) mmol/L Calcium (8.5-10.1) mg/dL Corrected Calcium (8.5-10.1) mg/dL Total Bilirubin (0.2-1.0) mg/dL AST (15-37) U/L ALT (16-63) U/L Alkaline Phosphatase (46-116) U/L Troponin I (<=0.056) ng/mL C-Reactive Protein (<=0.9) mg/dL Total Protein (6.4-8.2) g/dL Albumin (3.4-5.0) g/dL Globulin Albumin/Globulin Ratio 09/02/20 09/02/20 09/02/20 Range/Units 17:38 17:38 20:12 WBC (4.0-10.0) x10^3/uL RBC (4.5-6.0) x10^6/uL Hgb (14.0-18.0) g/dL Hct (40.0-52.0) % MCV (78.0-93.0) fL MCH (26.0-32.0) pg MCHC (32.0-36.0) g/dL RDW Coeff of Roberto (10.0-15.0) % Plt Count (130-400) x10^3/uL Neut % (Auto) (50.0-80.0) % Lymph % (Auto) (25.0-50.0) % Morris % (Auto) (2.0-11.0) % Eos % (Auto) (0.0-4.0) % Baso % (Auto) (0.2-1.2) % Add Manual Diff Neutrophils % (Manual) (50-80) % Band Neutrophils % (0-6) % Lymphocytes % (Manual) (25-50) % Monocytes % (Manual) (2-11) % Metamyelocytes % (0) % Nucleated RBCs (0-5) /100WBC Toxic Granulation Giant Platelets POC ABG pH (7.35-7.45) pH POC ABG pCO2 (35-48) mmHg POC ABG pO2 (83-108) mmHg POC ABG HCO3 (21-28) mmol/L POC ABG Total CO2 (22-29) mmol/L POC ABG O2 Sat % POC ABG Base Excess (-2-3) mmol/L POC FiO2 Sodium 161 H* (136-145) mmol/L Potassium (3.5-5.1) mmol/L Chloride (98-107) mmol/L Carbon Dioxide (21-32) mmol/L Anion Gap (10-20) mmol/L BUN (7-18) mg/dL Creatinine (0.70-1.30) mg/dL Est Cr Clr Drug Dosing Estimated GFR (MDRD) Glucose (74-106) mg/dL Lactic Acid 8.2 H* 2.2 H* (0.4-2.0) mmol/L Calcium (8.5-10.1) mg/dL Corrected Calcium (8.5-10.1) mg/dL Total Bilirubin (0.2-1.0) mg/dL AST (15-37) U/L ALT (16-63) U/L Alkaline Phosphatase (46-116) U/L Troponin I (<=0.056) ng/mL C-Reactive Protein (<=0.9) mg/dL Total Protein (6.4-8.2) g/dL Albumin (3.4-5.0) g/dL Globulin Albumin/Globulin Ratio 09/03/20 09/03/20 09/03/20 Range/Units 06:32 06:32 06:32 WBC 14.2 H (4.0-10.0) x10^3/uL RBC 4.49 L (4.5-6.0) x10^6/uL Hgb 11.9 L (14.0-18.0) g/dL Hct 42.8 (40.0-52.0) % MCV 95.3 H (78.0-93.0) fL MCH 26.5 (26.0-32.0) pg MCHC 27.8 L (32.0-36.0) g/dL RDW Coeff of Roberto 16.1 H (10.0-15.0) % Plt Count 213 (130-400) x10^3/uL Neut % (Auto) (50.0-80.0) % Lymph % (Auto) (25.0-50.0) % Morris % (Auto) (2.0-11.0) % Eos % (Auto) (0.0-4.0) % Baso % (Auto) (0.2-1.2) % Add Manual Diff Yes Neutrophils % (Manual) 82 H (50-80) % Band Neutrophils % 6 (0-6) % Lymphocytes % (Manual) 6 L (25-50) % Monocytes % (Manual) 5 (2-11) % Metamyelocytes % 1 H (0) % Nucleated RBCs 1 (0-5) /100WBC Toxic Granulation Rare Giant Platelets Rare H POC ABG pH (7.35-7.45) pH POC ABG pCO2 (35-48) mmHg POC ABG pO2 (83-108) mmHg POC ABG HCO3 (21-28) mmol/L POC ABG Total CO2 (22-29) mmol/L POC ABG O2 Sat % POC ABG Base Excess (-2-3) mmol/L POC FiO2 Sodium 167 H* (136-145) mmol/L Potassium 4.3 (3.5-5.1) mmol/L Chloride 126 H (98-107) mmol/L Carbon Dioxide 29 (21-32) mmol/L Anion Gap 16.3 (10-20) mmol/L BUN 80 H* (7-18) mg/dL Creatinine 2.8 H (0.70-1.30) mg/dL Est Cr Clr Drug Dosing 20.54 Estimated GFR (MDRD) 22 Glucose 200 H (74-106) mg/dL Lactic Acid 2.4 H* (0.4-2.0) mmol/L Calcium 8.5 (8.5-10.1) mg/dL Corrected Calcium (8.5-10.1) mg/dL Total Bilirubin (0.2-1.0) mg/dL AST (15-37) U/L ALT (16-63) U/L Alkaline Phosphatase (46-116) U/L Troponin I (<=0.056) ng/mL C-Reactive Protein 17.2 H (<=0.9) mg/dL Total Protein (6.4-8.2) g/dL Albumin (3.4-5.0) g/dL Globulin Albumin/Globulin Ratio Ricardo Results Last 24 Hours: Microbiology 09/02/20 12:55 Anaerobic Blood Culture - Final Blood - Venous - Lab Draw Med Orders - Current: Current Medications Acetaminophen (Tylenol) 650 mg PO Q4H PRN PRN Reason: Pain (Mild 1-3)/fever Albuterol/Ipratropium (Duoneb 3.0-0.5 Mg/3 Ml) 3 ml NEB Q6HRRT PRN PRN Reason: Shortness of Breath Last Admin: 09/03/20 06:54 Dose: 3 ml Documented by: Bisacodyl (Dulcolax) 5 mg PO DAILY PRN PRN Reason: Constipation Enoxaparin Sodium (Lovenox) 40 mg SUBCUT DAILY [facility] Guaifenesin (Mucinex) 600 mg PO BID [facility] Last Admin: 09/02/20 22:47 Dose: Not Given Documented by: Lactated Ringer's (Ringers, Lactated) 1,000 mls @ 125 mls/hr IV ASDIRECTED [facility] Last Admin: 09/02/20 18:08 Dose: 125 mls/hr Documented by: Piperacillin Sod/Tazobactam (Sod 3.375 gm/ Sodium Chloride) 100 mls @ 25 mls/hr IV Q8H [facility] Last Admin: 09/03/20 02:48 Dose: 25 mls/hr Documented by: Metoprolol Tartrate (Lopressor) 12.5 mg PO BID [facility] Last Admin: 09/02/20 22:47 Dose: Not Given Documented by: Omeprazole (Omeprazole) 20 mg PO ACBREAKFAST [facility] Last Admin: 09/03/20 06:53 Dose: Not Given Documented by: Risperidone (Risperidal) 0.5 mg PO BEDTIME [facility] Last Admin: 09/02/20 22:48 Dose: Not Given Documented by: Senna/Docusate Sodium (Senna Plus) 2 tab PO TID [facility] Last Admin: 09/02/20 22:48 Dose: Not Given Documented by: Sodium Chloride (Saline Flush) 10 ml FLUSH ASDIRECTED PRN PRN Reason: Keep Vein Open Last Admin: 09/03/20 02:48 Dose: 10 ml Documented by: Discontinued Medications Piperacillin Sod/Tazobactam (Sod 3.375 gm/ Sodium Chloride) 100 mls @ 200 mls/hr IV STAT ONE Stop: 09/02/20 13:11 Last Admin: 09/02/20 12:55 Dose: 200 mls/hr Documented by: Lactated Ringer's (Ringers, Lactated) 1,000 mls @ 125 mls/hr IV ONETIME ONE Stop: 09/02/20 21:33 Last Admin: 09/02/20 13:40 Dose: 125 mls/hr Documented by: Piperacillin Sod/Tazobactam (Sod 2.25 gm/ Sodium Chloride) 100 mls @ 200 mls/hr IV Q6H GERONIMO Piperacillin Sod/Tazobactam Sod (Zosyn) Confirm Administered Dose 3.375 gm .ROUTE .STK-MED ONE Stop: 09/02/20 12:54 Last Admin: 09/02/20 12:48 Dose: Not Given Documented by: - Exam General: Severe Distress (RR in the 45-50 range; retractions noted) HEENT: Mucous Membr. Moist/[place] Neck: Supple, Trachea Midline, No Thyromegaly. No: Lymphadenopathy Lungs: Crackles (RLL), Other (increased respiratory effort) Cardiovascular: Regular Rhythm, No Murmurs, Tachycardia GI/Abdominal Exam: Normal Bowel Sounds, Soft, Non-Tender, No Distention, No Mass Extremities: Normal Inspection, Non-Tender, No Pedal Edema, Normal Capillary Refill Peripheral Pulses: 2+: Radial (L), Radial (R) Skin: Warm, Dry, Intact Sepsis Event Note - Evaluation Sepsis Screening Result: Severe Sepsis Risk - Focused Exam Vital Signs: Vital Signs Temp Pulse Resp BP Pulse Ox 09/03/20 06:00 37.0 C 109 H 43 H 117/61 92 L 09/03/20 02:00 36.7 C 94 41 H 119/40 L 95 09/02/20 22:00 36.8 C 95 43 H 117/54 L 95 - Problem List & Annotations (1) Sepsis SNOMED Code(s): 03271578 Code(s): A41.9 - SEPSIS, UNSPECIFIED ORGANISM Status: Acute Current Visit: No Qualifiers: Sepsis type: sepsis due to unspecified organism Sepsis acute organ dysfunction status: with acute organ dysfunction Severe sepsis acute organ dysfunction type: acute renal failure Acute renal failure type: unspecified Severe sepsis shock status: without septic shock Qualified Code(s): A41.9 - Sepsis, unspecified organism; R65.20 - Severe sepsis without septic shock; N17.9 - Acute kidney failure, unspecified (2) Community acquired pneumonia SNOMED Code(s): 280833628 Code(s): J18.9 - PNEUMONIA, UNSPECIFIED ORGANISM Status: Acute Current Visit: Yes Qualifiers: Laterality: right Lung location: lower lobe of lung Qualified Code(s): J18.9 - Pneumonia, unspecified organism (3) ARF (acute respiratory failure) SNOMED Code(s): 60235121 Code(s): J96.00 - ACUTE RESPIRATORY FAILURE, UNSP W HYPOXIA OR HYPERCAPNIA Status: Acute Current Visit: No Qualifiers: Respiratory failure complication: hypoxia Qualified Code(s): J96.01 - Acute respiratory failure with hypoxia (4) Acute renal insufficiency SNOMED Code(s): 432619072 Code(s): N28.9 - DISORDER OF KIDNEY AND URETER, UNSPECIFIED Status: Acute Current Visit: No (5) Dehydration SNOMED Code(s): 03226567 Code(s): E86.0 - DEHYDRATION Status: Acute Current Visit: No (6) Hypernatremia SNOMED Code(s): 516988191 Code(s): E87.0 - HYPEROSMOLALITY AND HYPERNATREMIA Status: Acute Current Visit: No (7) COPD (chronic obstructive pulmonary disease) SNOMED Code(s): 66206021 Code(s): J44.9 - CHRONIC OBSTRUCTIVE PULMONARY DISEASE, UNSPECIFIED Status: Chronic Priority: Medium Current Visit: No Qualifiers: COPD type: COPD with acute exacerbation Qualified Code(s): J44.1 - Chronic obstructive pulmonary disease with (acute) exacerbation (8) Alzheimer disease SNOMED Code(s): 53093462 Code(s): G30.9 - ALZHEIMER'S DISEASE, UNSPECIFIED; F02.80 - DEMENTIA IN OTH DISEASES CLASSD ELSWHR W/O BEHAVRL DISTURB Status: Chronic Current Visit: No Qualifiers: Alzheimer's disease onset: late-onset Dementia behavioral disturbance: with behavioral disturbance Qualified Code(s): G30.1 - Alzheimer's disease with late onset; F02.81 - Dementia in other diseases classified elsewhere with behavioral disturbance (9) Chronic atrial fibrillation SNOMED Code(s): 575723024 Code(s): I48.2 - CHRONIC ATRIAL FIBRILLATION * DO NOT USE * Status: Chronic Priority: Medium Current Visit: No (10) Essential hypertension SNOMED Code(s): 15147885 Code(s): I10 - ESSENTIAL (PRIMARY) HYPERTENSION Status: Chronic Priority: Low Current Visit: No (11) CHF (congestive heart failure) SNOMED Code(s): 92673790 Code(s): I50.9 - HEART FAILURE, UNSPECIFIED Status: Chronic Current Visit: Yes Qualifiers: Heart failure type: diastolic Heart failure chronicity: chronic Qualified Code(s): I50.32 - Chronic diastolic (congestive) heart failure (12) GERD (gastroesophageal reflux disease) SNOMED Code(s): 665474469 Code(s): K21.9 - GASTRO-ESOPHAGEAL REFLUX DISEASE WITHOUT ESOPHAGITIS Status: Chronic Current Visit: Yes Qualifiers: Esophagitis presence: esophagitis presence not specified Qualified Code(s): K21.9 - Gastro-esophageal reflux disease without esophagitis (13) Constipation SNOMED Code(s): 97705375 Code(s): K59.00 - CONSTIPATION, UNSPECIFIED Status: Chronic Current Visit: Yes Qualifiers: Constipation type: unspecified constipation type Qualified Code(s): K59.00 - Constipation, unspecified - Problem List Review Problem List Initiated/Reviewed/Updated: Yes - My Orders Last 24 Hours: My Active Orders 09/02/20 15:02 Patient Status [ADT] Routine Oxygen Therapy [RC] .PRN Up With Assistance [RC] ASDIRECTED VTE/DVT Education [RC] .PRN Vital Signs [RC] 02,06,10,14,18,22 Resuscitation Status Routine 09/02/20 15:04 Notify Provider Vital Signs [RC] .PRN 09/02/20 15:58 Dietary Supplements [RC] BIDMEALS 09/02/20 16:00 Lactated Ringers [Ringers, Lactated] 1,000 ml IV ASDIRECTED 09/02/20 16:09 Acetaminophen [TylenoL] 650 mg PO Q4H PRN bisacodyL [Dulcolax] 5 mg PO DAILY PRN 09/02/20 16:12 RT Aerosol Therapy [RC] .PRN Albuterol/Ipratropium [DuoNeb 3.0-0.5 MG/3 ML] 3 ml NEB Q6HRRT PRN 09/02/20 Dinner Regular Diet [DIET] 09/02/20 18:15 CULTURE MRSA SURVEY [RM] Routine 09/02/20 20:00 Docusate Sodium/Sennosides [Senna Plus] 2 tab PO TID Metoprolol Tartrate [Lopressor] 12.5 mg PO BID guaiFENesin [Mucinex] 600 mg PO BID risperiDONE [RisperiDAL] 0.5 mg PO BEDTIME 09/03/20 03:22 Urinary Catheter Assessment [RC] .PRN 09/03/20 07:00 Omeprazole 20 mg PO ACBREAKFAST 09/03/20 08:00 Enoxaparin [Lovenox] 40 mg SUBCUT DAILY polyethylene glycoL 3350 [MiraLAX] DOSE UNIT RTE FREQ 09/04/20 03:30 Urinary Catheter Insertion [Insert Urinary Catheter] [OM.PC] Q24H - Assessment Assessment:: 84 yo male hospital day #2 admitted with sepsis secondary to pneumonia. Had initially improved on BiPap but has not done as well overnight. - Plan Plan:: #1 Sepsis, secondary to #2 #2 Community acquired pneumonia #3 Acute hypoxic respiratory failure - Met sepsis criteria on admit with his respiratory rate and heart rate. Still no fever but WBC now elevated today. - Lactic acid peaked over 10 yesterday but has returned into the 2 range with IV fluids. - Fluids held overnight in case this was contributing to his respiratory status. - Antibiotics as below. - Patient with multiple signs of decompensation this morning - increased sodium again, increased creatinine, worsening respiratory status. Therefore, plan at this point is to discuss his current state again with his POA. We are utilizing all appropriate interventions at this point and he is a DNR/DNI; therefore, it is unlikely that he is going to improve significantly despite lack of response to current interventions. I did attempt to call his POA multiple times this morning, as did nursing staff, and we have not been able to get ahold of her at this time. - Will continue to try toward that to see if she wants to continue current interventions vs transition to comfort care. It is noted that he will likely within a very short period of time (minutes to hours) once the BiPap is removed. - Continue zosyn at this time. - Blood cultures pending. #4 Acute renal failure #5 Dehydration #6 Hypernatremia - Creatinine up to 2.8 this am and sodium back up to 167. - LR held given possible contributions to respiratory status deterioration. Will hold off on resuming this until we are able to check in with this sister. #7 COPD - Continue PRN DuoNebs. These have not been overly helpful. #8 Alzheimer Disease - Continue home medications. - Will reorient as able. - His POA is his sister in law (Ramandeep [phone]). #9 Atrial fibrillation #10 Hypertension #11 CHF #12 GERD #13 Constipation - Continue home medications with the exception of holding his lasix for now. - Will reassess daily the ability to resume this. - Unclear why he is not on anticoagulation for his a-fib but this is deferred to the outpatient setting since he will be on lovenox inpatient. Patient will remain on acute at this time - as above, his status is guarded and he has a high likelihood of dying from his current illness. We will continue to work to get ahold of his sister and will go from there. Patient is DNR/DNI - discussed with his [id number] (and POA) on admission. She is ok with IV fluids, IV antibiotics, and BiPap. Lovenox for VTE prophylaxis.
--- NOTE | 2020-09-03 09:20 | PCM.SN.2 ---
- Free Text/Narrative Note: Nursing talked with patient's sister in law. Upon discussion, plan will be to transition to comfort cares at this point. Except patient to in the next 6- 24 hours. Will d/c BiPap and order Morphine.
[2020-09-03] MEDS: Metoprolol Tartrate 25 MG Tab PO SCH (09:24)
[2020-09-03] MEDS: guaiFENesin 600 MG Tab.ER PO SCH ×2 (09:24→21:19)
[2020-09-03] MEDS: Morphine 2 MG/ML SYRINGE IVPUSH PRN ×4 (09:31→23:55)
[2020-09-04] MEDS: guaiFENesin 600 MG Tab.ER PO SCH ×2 (08:26→21:20)
[2020-09-04] MEDS: Morphine 2 MG/ML SYRINGE IVPUSH PRN ×2 (09:16→18:23)
[2020-09-04] MEDS: Sodium Chloride 0.9% 10 ML Syringe FLUSH PRN ×2 (09:17→18:24)
--- NOTE | 2020-09-04 13:56 | PCM.PN ---
- General Info Date of Service: 09/04/20 Subjective Update: 84 yo male admitted with sepsis secondary to pneumonia. Patient is nonverbal at baseline and does not answer questions. - Review of Systems Systems Review Comment:: unable to asses due to patient being nonverbal - Patient Data Vitals - Most Recent: Last Vital Signs Temp 37.2 C 09/03/20 13:52 Pulse 100 09/03/20 22:00 Resp 42 H 09/03/20 22:00 BP 95/34 L 09/03/20 13:52 Pulse Ox 81 L 09/03/20 22:00 Weight - Most Recent: 92.986 kg I&O - Last 24 Hours: Intake & Output 09/03/20 09/04/20 09/04/20 22:59 06:59 14:59 Intake Total 0 Output Total 350 Balance -350 0 Ricardo Results Last 24 Hours: Microbiology 09/02/20 12:40 Aerobic Blood Culture - Preliminary Blood - Venous NO GROWTH AFTER 2 DAYS Anaerobic Blood Culture - Preliminary NO GROWTH AFTER 2 DAYS 09/02/20 12:55 Aerobic Blood Culture - Preliminary Blood - Venous - Lab Draw NO GROWTH AFTER 2 DAYS Anaerobic Blood Culture - Final 09/02/20 18:15 MRSA Surveillance Culture - Final Nasal, Unspecified NO MRSA ISOLATED Med Orders - Current: Current Medications Albuterol/Ipratropium (Duoneb 3.0-0.5 Mg/3 Ml) 3 ml NEB Q6HRRT PRN PRN Reason: Shortness of Breath Last Admin: 09/03/20 06:54 Dose: 3 ml Documented by: Guaifenesin (Mucinex) 600 mg PO BID GERONIMO Last Admin: 09/04/20 08:26 Dose: Not Given Documented by: Morphine Sulfate (Morphine) 2 mg IVPUSH Q2H PRN PRN Reason: respiratory distress Last Admin: 09/04/20 09:16 Dose: 2 mg Documented by: Sodium Chloride (Saline Flush) 10 ml FLUSH ASDIRECTED PRN PRN Reason: Keep Vein Open Last Admin: 09/04/20 09:17 Dose: 10 ml Documented by: Discontinued Medications Acetaminophen (Tylenol) 650 mg PO Q4H PRN PRN Reason: Pain (Mild 1-3)/fever Bisacodyl (Dulcolax) 5 mg PO DAILY PRN PRN Reason: Constipation Enoxaparin Sodium (Lovenox) 40 mg SUBCUT DAILY [facility] Last Admin: 09/03/20 09:24 Dose: Not Given Documented by: Piperacillin Sod/Tazobactam (Sod 3.375 gm/ Sodium Chloride) 100 mls @ 200 mls/hr IV STAT ONE Stop: 09/02/20 13:11 Last Admin: 09/02/20 12:55 Dose: 200 mls/hr Documented by: Lactated Ringer's (Ringers, Lactated) 1,000 mls @ 125 mls/hr IV ONETIME ONE Stop: 09/02/20 21:33 Last Admin: 09/02/20 13:40 Dose: 125 mls/hr Documented by: Lactated Ringer's (Ringers, Lactated) 1,000 mls @ 125 mls/hr IV ASDIRECTED [facility] Last Admin: 09/02/20 18:08 Dose: 125 mls/hr Documented by: Piperacillin Sod/Tazobactam (Sod 2.25 gm/ Sodium Chloride) 100 mls @ 200 mls/hr IV Q6H [facility] Piperacillin Sod/Tazobactam (Sod 3.375 gm/ Sodium Chloride) 100 mls @ 25 mls/hr IV Q8H [facility] Last Admin: 09/03/20 02:48 Dose: 25 mls/hr Documented by: Metoprolol Tartrate (Lopressor) 12.5 mg PO BID [facility] Last Admin: 09/03/20 09:24 Dose: Not Given Documented by: Omeprazole (Omeprazole) 20 mg PO ACBREAKFAST [facility] Last Admin: 09/03/20 06:53 Dose: Not Given Documented by: Piperacillin Sod/Tazobactam Sod (Zosyn) Confirm Administered Dose 3.375 gm .ROUTE .STK-MED ONE Stop: 09/02/20 12:54 Last Admin: 09/02/20 12:48 Dose: Not Given Documented by: Risperidone (Risperidal) 0.5 mg PO BEDTIME [facility] Last Admin: 09/02/20 22:48 Dose: Not Given Documented by: Senna/Docusate Sodium (Senna Plus) 2 tab PO TID [facility] Last Admin: 09/03/20 12:22 Dose: Not Given Documented by: - Exam General: Severe Distress, Lethargic HEENT: Mucous Membr. Moist/[place] Neck: Supple, Trachea Midline, No Thyromegaly. No: Lymphadenopathy Lungs: Decreased Breath Sounds (RLL), Crackles (RLL), Other (severe tachypnea) Cardiovascular: Regular Rhythm, Tachycardia GI/Abdominal Exam: Normal Bowel Sounds, Soft, Non-Tender, No Organomegaly, No Distention, No Mass Extremities: Normal Inspection, No Pedal Edema Peripheral Pulses: 2+: Radial (L), Radial (R) Skin: Warm, Dry, Intact Sepsis Event Note - Evaluation Sepsis Screening Result: Severe Sepsis Risk - Problem List & Annotations (1) Palliative care patient SNOMED Code(s): 830520685, 361970347 Code(s): Z51.5 - ENCOUNTER FOR PALLIATIVE CARE Status: Acute Current Visit: Yes (2) Comfort measures only status SNOMED Code(s): 50247931995444 Code(s): Z51.5 - ENCOUNTER FOR PALLIATIVE CARE Status: Acute Current Visit: Yes (3) Sepsis SNOMED Code(s): 63821883 Code(s): A41.9 - SEPSIS, UNSPECIFIED ORGANISM Status: Acute Current Visit: No Qualifiers: Sepsis type: sepsis due to unspecified organism Sepsis acute organ dysfunction status: with acute organ dysfunction Severe sepsis acute organ dysfunction type: acute renal failure Acute renal failure type: unspecified Severe sepsis shock status: without septic shock Qualified Code(s): A41.9 - Sepsis, unspecified organism; R65.20 - Severe sepsis without septic shock; N17.9 - Acute kidney failure, unspecified (4) Community acquired pneumonia SNOMED Code(s): 123254113 Code(s): J18.9 - PNEUMONIA, UNSPECIFIED ORGANISM Status: Acute Current Visit: Yes Qualifiers: Laterality: right Lung location: lower lobe of lung Qualified Code(s): J18.9 - Pneumonia, unspecified organism (5) ARF (acute respiratory failure) SNOMED Code(s): 39241568 Code(s): J96.00 - ACUTE RESPIRATORY FAILURE, UNSP W HYPOXIA OR HYPERCAPNIA Status: Acute Current Visit: No Qualifiers: Respiratory failure complication: hypoxia Qualified Code(s): J96.01 - Acute respiratory failure with hypoxia (6) Acute renal insufficiency SNOMED Code(s): 601324951 Code(s): N28.9 - DISORDER OF KIDNEY AND URETER, UNSPECIFIED Status: Acute Current Visit: No (7) Dehydration SNOMED Code(s): 25900580 Code(s): E86.0 - DEHYDRATION Status: Acute Current Visit: No (8) Hypernatremia SNOMED Code(s): 956569426 Code(s): E87.0 - HYPEROSMOLALITY AND HYPERNATREMIA Status: Acute Current Visit: Yes (9) COPD (chronic obstructive pulmonary disease) SNOMED Code(s): 81633887 Code(s): J44.9 - CHRONIC OBSTRUCTIVE PULMONARY DISEASE, UNSPECIFIED Status: Chronic Priority: Medium Current Visit: No Qualifiers: COPD type: COPD with acute exacerbation Qualified Code(s): J44.1 - Chronic obstructive pulmonary disease with (acute) exacerbation (10) Alzheimer disease SNOMED Code(s): 93517006 Code(s): G30.9 - ALZHEIMER'S DISEASE, UNSPECIFIED; F02.80 - DEMENTIA IN OTH DISEASES CLASSD ELSWHR W/O BEHAVRL DISTURB Status: Chronic Current Visit: No Qualifiers: Alzheimer's disease onset: late-onset Dementia behavioral disturbance: with behavioral disturbance Qualified Code(s): G30.1 - Alzheimer's disease with late onset; F02.81 - Dementia in other diseases classified elsewhere with behavioral disturbance (11) Chronic atrial fibrillation SNOMED Code(s): 411251007 Code(s): I48.2 - CHRONIC ATRIAL FIBRILLATION * DO NOT USE * Status: Chronic Priority: Medium Current Visit: No (12) Essential hypertension SNOMED Code(s): 60421584 Code(s): I10 - ESSENTIAL (PRIMARY) HYPERTENSION Status: Chronic Priority: Low Current Visit: No (13) CHF (congestive heart failure) SNOMED Code(s): 43302322 Code(s): I50.9 - HEART FAILURE, UNSPECIFIED Status: Chronic Current Visit: Yes Qualifiers: Heart failure type: diastolic Heart failure chronicity: chronic Qualified Code(s): I50.32 - Chronic diastolic (congestive) heart failure (14) GERD (gastroesophageal reflux disease) SNOMED Code(s): 545024211 Code(s): K21.9 - GASTRO-ESOPHAGEAL REFLUX DISEASE WITHOUT ESOPHAGITIS Status: Chronic Current Visit: Yes Qualifiers: Esophagitis presence: esophagitis presence not specified Qualified Code(s): K21.9 - Gastro-esophageal reflux disease without esophagitis (15) Constipation SNOMED Code(s): 29893453 Code(s): K59.00 - CONSTIPATION, UNSPECIFIED Status: Chronic Current Visit: Yes Qualifiers: Constipation type: unspecified constipation type Qualified Code(s): K59.00 - Constipation, unspecified - Problem List Review Problem List Initiated/Reviewed/Updated: Yes - My Orders Last 24 Hours: My Active Orders 09/05/20 03:30 Urinary Catheter Insertion [Insert Urinary Catheter] [OM.PC] Q24H - Assessment Assessment:: 84 yo male hospital day #2 admitted with sepsis secondary to pneumonia. Had initially improved on BiPap but then worsened significantly. Upon discussions with family, he was transitioned to comfort cares yesterday. - Plan Plan:: #1 Palliative Care Patient #2 Comfort measures only status #3 Sepsis, secondary to #2 #4 Community acquired pneumonia #5 Acute hypoxic respiratory failure #6 Acute renal failure #7 Dehydration #8 Hypernatremia - Patient is now on comfort cares. - Has not seemed in distress and is doing well on the morphine. - Swabs to mouth. Patient is not alert enough to eat/drink. No IV fluids given comfort care status. - Anticipate patient to pass away in the next 24 hours. - Therefore, he will remain admitted until that time. - No VTE prophylaxis given comfort care status. Patient will be signed out to the windows migration technician provider over the weekend.
--- NOTE | 2020-09-05 09:49 | PCM.DCSUM1 ---
Discharge Summary - Hospital Course Diagnosis: Stroke: No Modified Reeves Scale: No Symptoms at All Modified Reeves Scale Score: 0 - Discharge Data Discharge Date: 09/05/20 Discharge Disposition: 20 Preliminary Cause of *Q: Multi System Organ Failure Event(s) Leading to Patient's *Q: shelter resident admitted with Sepsis 2/2 to pneumonia. Patient did not response to treatment and was made comfort cares. All attempts were made for treatment. Condition: - Referral to Home Health Primary Care Physician: Marina Bone MD - Discharge Plan *PRESCRIPTION DRUG MONITORING PROGRAM REVIEWED*: Not Applicable *COPY OF PRESCRIPTION DRUG MONITORING REPORT IN PATIENT ARCHANA: Not Applicable Home Medications: Home Meds Metoprolol Tartrate 12.5 mg PO BID 12/16/17 [History] Sennosides/Docusate Sodium [Senna Plus Tablet] 2 tab PO TID 12/16/17 [History] polyethylene glycoL 3350 [MiraLAX] 17 gm PO DAILY 12/16/17 [History] Omeprazole 20 mg PO ACBREAKFAST 01/18/19 [History] bisacodyL [Dulcolax] 5 mg PO DAILY PRN 01/18/19 [History] Furosemide [Lasix] 40 mg PO DAILY #30 tab 01/22/19 [Rx] risperiDONE 0.5 mg PO BEDTIME 12/20/19 [History] Acetaminophen [Tylenol] 650 mg PO Q4H PRN tablet 12/23/19 [Rx] guaiFENesin [Mucinex] 600 mg PO BID 09/02/20 [History] - Discharge Summary/Plan Comment DC Time >30 min.: No Discharge Summary/Plan Comment: Patient at 0220am on 09/05/2020. Body released to home. - General Info Date of Service: 09/05/20 Admission Dx/Problem (Free Text: Admission Diagnosis/Problem Admission Diagnosis/Problem Pneumonia Subjective Update: 84 yo male admitted with sepsis secondary to pneumonia. Patient is nonverbal at baseline and does not answer questions. - Review of Systems Systems Review Comment: Unable to obtain, patient is - Patient Data Vitals - Most Recent: Last Vital Signs Temp 98.9 F 09/03/20 13:52 Pulse 100 09/03/20 22:00 Resp 42 H 09/03/20 22:00 BP 95/34 L 09/03/20 13:52 Pulse Ox 81 L 09/03/20 22:00 Weight - Most Recent: 205 lb I&O - Last 24 hours: Intake & Output 09/04/20 09/05/20 09/05/20 22:59 06:59 14:59 Output Total 250 Balance -250 YOHAN Results - Last 24 hrs: Microbiology 09/02/20 12:40 Aerobic Blood Culture - Preliminary Blood - Venous NO GROWTH AFTER 2 DAYS Anaerobic Blood Culture - Preliminary NO GROWTH AFTER 2 DAYS 09/02/20 12:55 Aerobic Blood Culture - Preliminary Blood - Venous - Lab Draw NO GROWTH AFTER 2 DAYS Anaerobic Blood Culture - Final Med Orders - Current: Current Medications Discontinued Medications Acetaminophen (Tylenol) 650 mg PO Q4H PRN PRN Reason: Pain (Mild 1-3)/fever Albuterol/Ipratropium (Duoneb 3.0-0.5 Mg/3 Ml) 3 ml NEB Q6HRRT PRN PRN Reason: Shortness of Breath Last Admin: 09/03/20 06:54 Dose: 3 ml Documented by: Bisacodyl (Dulcolax) 5 mg PO DAILY PRN PRN Reason: Constipation Enoxaparin Sodium (Lovenox) 40 mg SUBCUT DAILY [facility] Last Admin: 09/03/20 09:24 Dose: Not Given Documented by: Guaifenesin (Mucinex) 600 mg PO BID [facility] Last Admin: 09/04/20 21:20 Dose: Not Given Documented by: Piperacillin Sod/Tazobactam (Sod 3.375 gm/ Sodium Chloride) 100 mls @ 200 mls/hr IV STAT ONE Stop: 09/02/20 13:11 Last Admin: 09/02/20 12:55 Dose: 200 mls/hr Documented by: Lactated Ringer's (Ringers, Lactated) 1,000 mls @ 125 mls/hr IV ONETIME ONE Stop: 09/02/20 21:33 Last Admin: 09/02/20 13:40 Dose: 125 mls/hr Documented by: Lactated Ringer's (Ringers, Lactated) 1,000 mls @ 125 mls/hr IV ASDIRECTED [facility] Last Admin: 09/02/20 18:08 Dose: 125 mls/hr Documented by: Piperacillin Sod/Tazobactam (Sod 2.25 gm/ Sodium Chloride) 100 mls @ 200 mls/hr IV Q6H [facility] Piperacillin Sod/Tazobactam (Sod 3.375 gm/ Sodium Chloride) 100 mls @ 25 mls/hr IV Q8H [facility] Last Admin: 09/03/20 02:48 Dose: 25 mls/hr Documented by: Metoprolol Tartrate (Lopressor) 12.5 mg PO BID [facility] Last Admin: 09/03/20 09:24 Dose: Not Given Documented by: Morphine Sulfate (Morphine) 2 mg IVPUSH Q2H PRN PRN Reason: respiratory distress Last Admin: 09/04/20 18:23 Dose: 2 mg Documented by: Omeprazole (Omeprazole) 20 mg PO ACBREAKFAST [facility] Last Admin: 09/03/20 06:53 Dose: Not Given Documented by: Piperacillin Sod/Tazobactam Sod (Zosyn) Confirm Administered Dose 3.375 gm .ROUTE .STK-MED ONE Stop: 09/02/20 12:54 Last Admin: 09/02/20 12:48 Dose: Not Given Documented by: Risperidone (Risperidal) 0.5 mg PO BEDTIME [facility] Last Admin: 09/02/20 22:48 Dose: Not Given Documented by: Senna/Docusate Sodium (Senna Plus) 2 tab PO TID [facility] Last Admin: 09/03/20 12:22 Dose: Not Given Documented by: Sodium Chloride (Saline Flush) 10 ml FLUSH ASDIRECTED PRN PRN Reason: Keep Vein Open Last Admin: 09/04/20 18:24 Dose: 10 ml Documented by: - Exam Physical Findings Comments:: No spontaneous respirations; no spontaneous heart rate; no response to obnoxious stimuli
== END 2020-09-05 03:50 | disposition expired | DRG 871 ==
LOC: VM.ED 12:15 → VM.MS 15:02
PROVIDERS: ADMIT Family Medicine; ATTEND Family Medicine
PROC: 5A09457 Assistance with Respiratory Ventilation, 24-96 Consecutive Hours, Continuous Positive Airway Pressure (ICD-10-PCS; principal; 2020-09-02)
DX: E87.1 Hypo-osmolality and hyponatremia (principal); R09.02 Hypoxemia; I48.91 Unspecified atrial fibrillation; A41.9 Sepsis, unspecified organism; I50.9 Heart failure, unspecified; J18.9 Pneumonia, unspecified organism; J96.01 Acute respiratory failure with hypoxia; J44.0 Chronic obstructive pulmonary disease with (acute) lower respiratory infection; G30.9 Alzheimer's disease, unspecified; F02.80 Dementia in other diseases classified elsewhere, unspecified severity, without behavioral disturbance, psychotic disturbance, mood disturbance, and anxiety; I13.0 Hypertensive heart and chronic kidney disease with heart failure and stage 1 through stage 4 chronic kidney disease, or unspecified chronic kidney disease; E87.0 Hyperosmolality and hypernatremia; N17.9 Acute kidney failure, unspecified; J44.1 Chronic obstructive pulmonary disease with (acute) exacerbation; F02.81 Dementia in other diseases classified elsewhere, unspecified severity, with behavioral disturbance; I48.20 Chronic atrial fibrillation, unspecified; I50.32 Chronic diastolic (congestive) heart failure; Z66 Do not resuscitate; Z51.5 Encounter for palliative care; R65.20 Severe sepsis without septic shock; N18.9 Chronic kidney disease, unspecified; K59.09 Other constipation; H35.30 Unspecified macular degeneration; G30.1 Alzheimer's disease with late onset; K22.70 Barrett's esophagus without dysplasia; I89.0 Lymphedema, not elsewhere classified; E53.8 Deficiency of other specified B group vitamins; E86.0 Dehydration; K21.9 Gastro-esophageal reflux disease without esophagitis; Z79.899 Other long term (current) drug therapy; Z87.01 Personal history of pneumonia (recurrent); Z98.49 Cataract extraction status, unspecified eye; Z87.891 Personal history of nicotine dependence
CPT/HCPCS: 36415; 36600; 51702; 71045; 80048; 80053; 82803; 83605; 84295; 84484; 85025; 86140; 87040; 93005; 94640; 94660; 94760; 96361; 96365; 99284; 99285-25; J2270; J2543; J7050; J7120; J7620-GY